=== PATIENT | male | born 1950 | race Caucasian/White ===

== ENCOUNTER 2016-08-12 21:59 | Inpatient (IN) | payer BC, OTHER ==
[~2016-08-12] VITALS: Ht 180.3 cm; Wt 172.1 kg
[~2016-08-12 21:59] MED LIST: ALL300 PO; AMLO10TA4 PO; ASPI81TA28 PO; ATOR-24 PO; BMX1 PO; COLC0.6T54 PO; DICL-201 PO; FLUT0.0529 NAE; FOSI40TA2 PO; GLC/500 PO; GLIP-171 PO; NATE120T PO; POTA-327 PO; SALI0.6510 NAE; SITA100T3 PO; TRAM-10 PO
[2016-08-12 22:59] LABS: BASO % 0.4 %; BASO ABS # 0.04 K/uL (0-0.2); COMPLETE YES; EOS % 2.6 %; IG% 0.3 %; LYMPH ABS # 4.42 K/uL (1.2-3.4); MEAN CELL VOLUME 88.7 fL (80-100); MEAN CORPUSCULAR HEMOGLOBIN 31.1 pg (25-34); MEAN CORPUSCULAR HGB CONC 35.1 g/dl (32-36); MEAN PLATELET VOLUME 10.6 fL (7.4-10.4); MONO % 6.3 %; NEUT % 51.4 %; PLATELET COUNT 274 K/uL (130-400); RED BLOOD COUNT 4.85 M/uL (4.7-6.1); WHITE BLOOD COUNT 11.34 K/uL (4.8-10.8)
[2016-08-12 23:08] LABS: PROTHROMBIN TIME (PATIENT) 10.6 SECONDS (9.0-12.0)
[2016-08-12 23:29] LABS: ALKALINE PHOSPHATASE 98 U/L (45-117); ALT/SGPT 47 U/L (12-78); BLOOD UREA NITROGEN 29 mg/dl (7-18); BUN/CREATININE RATIO 24.3 (10-20); CALCIUM 8.5 mg/dl (8.5-10.1); CARBON DIOXIDE 22 mmol/L (21-32); CHLORIDE 101 mmol/L (98-107); GLUCOSE 336 mg/dl (70-99); SODIUM 135 mmol/L (136-145)
[2016-08-12 23:31] LABS: AST/SGOT 50 U/L (15-37)
[2016-08-12 23:38] LABS: BETA-HYDROXYBUTYRATE 1.24 mg/dL (0.2-2.81)
[2016-08-13 01:08] LABS: MAGNESIUM 1.8 mg/dl (1.8-2.4)
[2016-08-13] MEDS ORDERED: ASPIRIN 81 MG CHEW PO STA (01:25)
[2016-08-13] MEDS ORDERED: SODIUM CHLORIDE 0.9% 500ML 500 ML IV ONE (01:45)
--- NOTE | 2016-08-13 02:17 | EMERGENCY ROOM VISIT NOTE ---
History Report prepared by Ean: Katarina Lino Under the Supervision of: Dr. Ivan Lucia M.D. First contact with patient: 22:34 Chief Complaint: SHORTNESS OF BREATH Stated Complaint: TROUBLE BREATING WHEN WALKING Nursing Triage Summary: patient states he has been short of breath with movement since this past and has difficulty catching his breath. History of Present Illness The patient is a 66 year old male who presents to the Emergency Room with complaints of worsening shortness of breath beginning 10 days prior to arrival. The patient states that he has been gradually worsening these past few days. He also notes the shortness of breath worsens with walking. The patient does have a cough with sputum. 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 He notes when he drives these long distances he experiences swelling to the lower extremities. The patient notes he has an inhaler at home that he has been using these past few days. He denies fever, chest pain, or pain with breathing. The patient is a diabetic. 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 Review of Systems See HPI for pertinent positives & negatives. A total of 10 systems reviewed and were otherwise negative. Past Medical & Surgical Medical Problems: (1) Diabetes (2) New onset a-fib Old medical records were reviewed. Nurse's notes were reviewed and I agree with. No previous history of A. fib. No history of cardiac disease or diabetes Family History Diabetes mellitus FH: heart disease FHx: cancer Hypertension Social History Smoking Status: Never Smoker Smokeless Tobacco Use: No Alcohol Use: none Marital Status: Housing Status: lives with family Occupation Status: employed Current/Historical Medications Scheduled Allopurinol (Zyloprim *), 300 MG PO DAILY Amlodipine Besylate (Norvasc), 10 MG PO DAILY Aspirin (Aspirin Ec), 81 MG PO DAILY Atorvastatin (Lipitor), 40 MG PO HS Bumetanide (Bumex *), 2 MG PO UD Colchicine (Colchicine), 0.6 MG PO DAILY Diclofenac (Voltaren), 75 MG PO DAILY WITH FOOD Fosinopril Sodium (Monopril), 80 MG PO DAILY Glipizide Xl (Glucotrol Xl), 10 MG PO QAM Metformin Hcl (Glucophage), 1,000 MG PO QAM Nateglinide (Starlix ), 120 MG PO BID Potassium Ext Rel (Klor-Con), 10 MEQ PO DAILY Sitagliptin Phosphate (Januvia), 100 MG PO DAILY Scheduled PRN Fluticasone Propionate (Nasal) (Flonase), 2 SPRAYS JANINA DAILY PRN for Nasal Congestion Saline ([place] Nasal [place]), 2 SPRAYS JANINA PRN PRN for Nasal Congestion Tramadol (Ultram), 50-100 MG PO Q6 PRN for Pain Allergies Coded Allergies: Sulfa Drugs (Verified Adverse Reaction, Mild, SICK - N/V, 08/12/16) Physical Exam Vital Signs Date Time Temp Pulse Resp B/P Pulse Ox O2 Delivery O2 Flow Rate FiO2 08/13/16 01:42 90 18 110/75 97 Room Air 08/12/16 23:48 108 18 114/71 95 Room Air 08/12/16 22:42 112 08/12/16 22:35 97 Room Air 08/12/16 22:15 99 Room Air 08/12/16 22:01 36.5 118 24 150/94 97 Room Air Physical Exam General: Non-ill appearing obese middle age male. Well developed well nourished in no acute distress, breathing comfortably on room air. Normal speech HEENT: Normal cephalic atraumatic. Pupils are equal round and reactive to light. Sclerae anicteric. Extraocular movements are intact. Oropharynx is pink with moist mucous membranes. No swelling of the mouth lips or tongue. Neck: Supple with a midline trachea. No meningeal signs or stiffness, no JVD or bruits. No Stridor. Chest: Crackles in the bases. Normal respiratory effort. Heart: irregularly irregular with minimal tachycardic at times. Abdomen: Soft nontender, nondistended without rebound guarding or rigidity. Extremities: No cyanosis clubbing. 1+ lower extremity edema. No calf tenderness or assymetry Spine/Back. Non tender to palpation. No CVA tenderness Skin: Good turgor without rashes. Neurologic exam: Cranial nerves two through 12 are intact. Motor and sensation are intact and symmetrical throughout. Medical Decision & Procedures ER Provider Diagnostic Interpretation: X-ray results as stated below per interpretation by me and the radiologist: Chest: Cardiomegaly with suspected congestive change. Laboratory Results 08/12/16 22:25 Red Blood Count 4.85, Mean Corpuscular Volume 88.7, Mean Corpuscular Hemoglobin 31.1, Mean Corpuscular Hemoglobin Concent 35.1, Mean Platelet Volume 10.6, Neutrophils (%) (Auto) 51.4, Lymphocytes (%) (Auto) 39.0, Monocytes (%) (Auto) 6.3, Eosinophils (%) (Auto) 2.6, Basophils (%) (Auto) 0.4, Neutrophils # (Auto) 5.84, Lymphocytes # (Auto) 4.42, Monocytes # (Auto) 0.71, Eosinophils # (Auto) 0.30, Basophils # (Auto) 0.04 08/12/16 22:25 Test 08/12/16 22:25 08/13/16 01:33 White Blood Count 11.34 K/uL (4.8-10.8) Red Blood Count 4.85 M/uL (4.7-6.1) Hemoglobin 15.1 g/dL (14.0-18.0) Hematocrit 43.0 % (42-52) Mean Corpuscular Volume 88.7 fL (80-100) Mean Corpuscular Hemoglobin 31.1 pg (25-34) Mean Corpuscular Hemoglobin Concent 35.1 g/dl (32-36) Platelet Count 274 K/uL (130-400) Mean Platelet Volume 10.6 fL (7.4-10.4) Neutrophils (%) (Auto) 51.4 % Lymphocytes (%) (Auto) 39.0 % Monocytes (%) (Auto) 6.3 % Eosinophils (%) (Auto) 2.6 % Basophils (%) (Auto) 0.4 % Neutrophils # (Auto) 5.84 K/uL (1.4-6.5) Lymphocytes # (Auto) 4.42 K/uL (1.2-3.4) Monocytes # (Auto) 0.71 K/uL (0.11-0.59) Eosinophils # (Auto) 0.30 K/uL (0-0.5) Basophils # (Auto) 0.04 K/uL (0-0.2) RDW Standard Deviation 42.8 fL (36.4-46.3) RDW Coefficient of Variation 13.2 % (11.5-14.5) Immature Granulocyte % (Auto) 0.3 % Immature Granulocyte # (Auto) 0.03 K/uL (0.00-0.02) Prothrombin Time 10.6 SECONDS (9.0-12.0) Prothromb Time International Ratio 1.0 (0.9-1.1) Activated Partial Thromboplast Time 26.7 SECONDS (21.0-31.0) Partial Thromboplastin Ratio 1.0 D-Dimer 590 ug/L FEU (0-500) Anion Gap 13.0 mmol/L (3-11) Est Creatinine Clear Calc Drug Dose 95.8 ml/min Estimated GFR () 71.6 Estimated GFR (Non- 61.8 BUN/Creatinine Ratio 24.3 (10-20) Calcium Level 8.5 mg/dl (8.5-10.1) Magnesium Level 1.8 mg/dl (1.8-2.4) Total Bilirubin 0.6 mg/dl (0.2-1) Direct Bilirubin 0.1 mg/dl (0-0.2) Aspartate Amino Transf (AST/SGOT) 50 U/L (15-37) Alanine Aminotransferase (ALT/SGPT) 47 U/L (12-78) Alkaline Phosphatase 98 U/L (45-117) Total Creatine Kinase 110 U/L (39-308) Creatine Kinase MB < 0.5 ng/ml (0.5-3.6) Creatine Kinase MB Ratio (0-3.0) Troponin I < 0.015 ng/ml (0-0.045) Pro-B-Type Natriuretic Peptide 510 pg/ml (0-900) Total Protein 7.6 gm/dl (6.4-8.2) Albumin 3.5 gm/dl (3.4-5.0) Lipase 185 U/L (73-393) Beta-Hydroxybutyric Acid 1.24 mg/dL (0.2-2.81) Thyroid Stimulating Hormone (TSH) 3.980 uIu/ml (0.300-4.500) Lactic Acid Level 2.0 mmol/L (0.4-2.0) Laboratory studies as stated above per my review. Medications Administered Medications (Trade) Dose Ordered Sig/Dennise Route Start Time Stop Time Status Last Admin Dose Admin Aspirin (Aspirin Chew) 324 mg NOW STAT PO 08/13/16 01:25 08/13/16 01:27 DC 08/13/16 01:25 324 MG ECG Indication: SOB/dyspnea Rate (beats per minute): 110 Rhythm: atrial fibrillation Findings: other (left anterior viscular block, poor R wave progression ) Comparison ECG Date: Atrial fibrilation has replaced normal sinus since September 16, 2010 ED Course 2238: Past medical records reviewed. The patient was evaluated in room B5, and a complete history and physical examination were performed. 0038: CT will come assess if patient will fit in CT machine. 0124: I spoke with Dr. Levon Santoro. He will evaluate the patient for further treatment. 0132: Upon reevaluation, the patient is hemodynamically stable. I discussed the results and treatment plan with the patient. He verbalized agreement of the treatment plan. The patient will be evaluated for further management by Dr. Levon Santoro. Medical Decision Differentials include, but are not limited to; CHF, arrhythmia, acute coronary syndrome, PE, infection, electrolyte or metabolic abnormalities. This patient comes in as described above. He was placed on a monitor tech in room B5. He is here for treatment and evaluation of dyspnea on exertion. he also apparently has new onset A. fib on the monitor. He does have peripheral edema. IV access established. He in no respiratory distress at rest. He is non-hypoxemic chest x-ray does show cardiomegaly and I suspect some mild congestive changes. He has a large body habitus and his chest x-ray difficult to say for sure. His BNP is not significantly elevated. His cardiac enzymes are not elevated. His d-dimer was minimally elevated just over 500. I think is unlikely PE. I did attempt order a CT however the patient cannot fit in our scanner physically I had our ict help desk technician came and checked him. He was given aspirin here he does have new onset A. fib on the EKG with a rate of about 100 up and down. I do think he needs to be admitted for that. He may need further evaluation. His TSH is within normal limits and is unlikely thyroid. I do suspect his underlying CHF component as well I have consulted Dr. Foster in the ER and will admit him for these measures. Consults Time Called: 0122 Consulting Physician: Dr. Levon Santoro Returned Call: [address] Levon Santoro. He will evaluate the patient for further treatment. Impression Primary Impression: New onset atrial fibrillation Additional Impression: CHF (congestive heart failure) Scribe Attestation The scribe's documentation has been prepared under my direction and personally reviewed by me in its entirety. I confirm that the note above accurately reflects all work, treatment, procedures, and medical decision making performed by me. Departure Information Dispostion Being Evaluated By Hospitalist Referrals Chantel Culver M.D. (MEDICAL) (PCP) Problem Qualifiers
[2016-08-13] MEDS ORDERED: GLUCAGON FOR INJ 1 MG VIAL SQ PRN ×2 (02:30)
[2016-08-13] MEDS ORDERED: LORAZEPAM 2 MG/ML 1 ML VIAL IV PRN (02:30)
[2016-08-13] MEDS ORDERED: GLUCOSE 40% GEL 15 GM TUBE PO PRN ×2 (02:30)
[2016-08-13] MEDS ORDERED: GLUCOSE 10 TABS/TUBE PO PRN ×2 (02:30)
[2016-08-13] MEDS ORDERED: NITROGLYCERIN 0.4 MG SL PER TAB CHARGE SL PRN (02:30)
[2016-08-13] MEDS ORDERED: MoRPHine SULFATE 4 MG/ML 1 ML CARP\\VIAL IV PRN (02:30)
[2016-08-13] MEDS ORDERED: SODIUM CHLORIDE 0.9% 1000ML 1,000 ML IV ONE (02:30)
[2016-08-13] MEDS ORDERED: DEXTROSE 50% 50 ML SYR IV PRN ×2 (02:30)
[2016-08-13] MEDS ORDERED: ACETAMINOPHEN 325 MG TAB PO PRN (02:30)
[2016-08-13] MEDS ORDERED: ONDANSETRON INJ 2 MG/ML 2 ML VIAL IV PRN (02:30)
[2016-08-13] MEDS ORDERED: FLUTICASONE PROPIONATE NA SPR 16 GM BTL NAE PRN (02:30)
[2016-08-13] MEDS ORDERED: TRAMADOL HCL 50 MG TAB PO PRN (02:30)
[2016-08-13] MEDS ORDERED: INSULIN GLARGINE SOLOSTAR 100 UNITS/ML 3 ML PEN SC ONE (03:00)
[2016-08-13] MEDS ORDERED: LORAZEPAM INJ 0.5 MG in SYRINGE 0.75 ML IV PRN (03:00)
[2016-08-13] MEDS ORDERED: METOPROLOL TARTRATE 25 MG TAB PO ONE (03:00)
[2016-08-13] MEDS ORDERED: INSULIN ASPART 100 UNITS/ML 3 ML PEN SC ONE (03:00)
[2016-08-13 03:07] VITALS: BP 154/98; PULSE 88; TEMP 36.6; O2SAT 95; BMI 53.7
[2016-08-13] MEDS: HEPARIN 25,000 UNIT/500ML D5W 500 ML IV PRN ×5 (03:49→19:49)
[2016-08-13 04:00] VITALS: BP 154/98; PULSE 88; TEMP 36.6; O2SAT 95
[2016-08-13] MEDS ORDERED: MAGNESIUM SULFATE 1GM / D5W 1 GM in PREMIXED IN D5W 100 ML IV ONE (04:00)
[2016-08-13 05:30] LABS: BASO % 0.6 %; BASO ABS # 0.06 K/uL (0-0.2); COMPLETE YES; EOS % 3.5 %; HEMATOCRIT 41.6 % (42-52); IG% 0.4 %; LYMPH % 38.5 %; LYMPH ABS # 4.04 K/uL (1.2-3.4); MEAN CELL VOLUME 90.4 fL (80-100); MEAN CORPUSCULAR HEMOGLOBIN 31.3 pg (25-34); MEAN CORPUSCULAR HGB CONC 34.6 g/dl (32-36); MEAN PLATELET VOLUME 10.4 fL (7.4-10.4); MONO % 7.3 %; NEUT % 49.7 %; PLATELET COUNT 229 K/uL (130-400)
[2016-08-13 05:55] LABS: BLOOD UREA NITROGEN 26 mg/dl (7-18); BUN/CREATININE RATIO 28.2 (10-20); CALCIUM 8.3 mg/dl (8.5-10.1); CARBON DIOXIDE 25 mmol/L (21-32); CHLORIDE 103 mmol/L (98-107); CREATININE 0.94 mg/dl (0.60-1.40); GLUCOSE 186 mg/dl (70-99); POTASSIUM 3.8 mmol/L (3.5-5.1); SODIUM 137 mmol/L (136-145)
--- NOTE | 2016-08-13 05:57 | DIAGNOSTIC IMAGING REPORT ---
CHEST ONE VIEW PORTABLE CLINICAL HISTORY: CHEST PAIN dyspnea COMPARISON STUDY: No previous studies for comparison. FINDINGS: Mild cardiomegaly. Prominent pulmonary vasculature. Diaphragms are smooth. IMPRESSION: Mild congestive heart failure Electronically signed by: Dario Vaz M.D. 08/13/2016 5:55 AM Dictated Date/Time: 08/13/2016 5:55 AM
--- NOTE | 2016-08-13 07:08 | DIAGNOSTIC IMAGING REPORT ---
BILATERAL LOWER EXTREMITY VENOUS DOPPLER HISTORY: Pain. Edema. leg discomfort COMPARISON STUDY: None. FINDINGS: There is normal compressibility, flow, and augmentation within the bilateral lower extremity deep venous systems. IMPRESSION: No DVT within the right or left lower extremity. Electronically signed by: Dario Vaz M.D. 08/13/2016 7:06 AM Dictated Date/Time: 08/13/2016 7:06 AM
--- NOTE | 2016-08-13 07:31 | HISTORY & PHYSICAL EXAMINATION ---
DATE OF ADMISSION: 08/13/2016 PRIMARY CARE PHYSICIAN: Dr. Salcedo. HX obtained from px and records. CHIEF COMPLAINT: Shortness of breath. HISTORY OF PRESENT ILLNESS: Medical history significant for hypertension, DM2 type 2 on oral meds, ROGER, CPAP intolerance; chronic venous insufficiency on diuretic tx, gout. Tonight, patient noted shortness of breath, could not catch his breath. No chest pain. L Leg discomfort. No palpitations. Chronic cough symptoms, productive of clear sputum. 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 Just got home from a [place] trip. He was 13 hrs on the bus. At the Emergency Room, patient noted to be in rapid AFib. MEDICAL HISTORY: As above. OPERATIONS: Hernia repair. HOME MEDICATIONS: Include Norvasc, aspirin, Xalatan, Lipitor, Bumex, colchicine, Voltaren, Flonase, Monopril, Glucotrol, metformin, Starlix, Januvia, Ultram, Klor-Con, sulfa. FAMILY HISTORY: atrial fibrillation, diabetes. PERSONAL AND SOCIAL HISTORY: Nonsmoker. No chronic intake of alcoholic beverages. 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 REVIEW OF SYSTEMS: As per HPI, all other ROS negative. PHYSICAL EXAMINATION: VITAL SIGNS: Blood pressure was noted to be 150/94, pulse rate 110, RR 22, temperature 36.5, sats 95 on room air. GENERAL: Noted to be morbidly obese. No respiratory distress. Slightly anxious. SKIN: Normal color. HEENT: [place] palpebral conjunctivae. Dry mucosa. NECK: Short neck. LUNGS: Decreased effort. HEART: Irregular. ABDOMEN: Some distention, nontender. EXTREMITIES: Minimal LE edema, no tenderness. NEUROLOGIC: No gross focality. LABS: Hemoglobin 15, hematocrit 42, white cell count was 11.3, platelets 274. Sodium 135, potassium 4, chloride 101, CO2 of 22, BUN 29, creatinine 1.2, anion gap is 13, glucose 330. BNP was normal. D-dimer was abnormal. Hemoglobin A1c from last year was noted to be 8.1. Chest x-ray, poor effort. EKG; AFib, rate 110, LAD, LAFB, poor R-wave progression. ASSESSMENT: 1. New-onset atrial fibrillation possibly precipitated by mild clinical dehydration (hyponatremia, anion gap) rule out pulmonary embolism as a precipitant with shortness of breath symptoms; 2. hypertension, blood pressure on the lower side 3. DM2, on oral meds, suboptimal control as of recent outpx HgA1c 4. ROGER, CPAP noncompliance. PLAN: PCU initiate beta munir for rate control IV heparin for thromboembolic prevention for now PE workup : VQ scan (CT scan cannot accommodate px girth), LE Dopplers. TTE, Cardiology consult RE new onset AFib. IVF, hold home diuretic for now decrease home ACEI dose, hold home CCB given relatively low BP for now basal Lantus, ISS BG goal 140-180 carb count indicated for suboptimal BG control Patient due for hemoglobin A1c check. May benefit from diabetic education pending HgA1c results. DVT prophylaxis. Heparin. Full code. MTDD
[2016-08-13 08:00] VITALS: BP 131/73; PULSE 100; TEMP 37; O2SAT 97
[2016-08-13] MEDS: COLCHICINE 0.6 MG TAB PO SCH (08:02)
[2016-08-13] MEDS: INSULIN ASPART 100 UNITS/ML 3 ML PEN SC SCH ×4 (08:06→21:25)
[2016-08-13] MEDS: LISINOPRIL 5 MG TAB PO SCH (08:08)
[2016-08-13] MEDS ORDERED: LISINOPRIL 2.5 MG TAB PO SCH (09:00)
[2016-08-13] MEDS ORDERED: PERFLUTREN LIPID MICROSPHERE (DEFINITY) IV ONE (09:57)
[2016-08-13 10:40] LABS: PARTIAL THROMBOPLASTIN RATIO 1.4
[2016-08-13] MEDS ORDERED: HEPARIN IV BOLUS 9,000 UNIT in SYRINGE 0 ML IV ONE (11:15)
[2016-08-13 11:49] VITALS: BP 115/76; PULSE 90; TEMP 36.7; O2SAT 96
--- NOTE | 2016-08-13 12:52 | DIAGNOSTIC IMAGING REPORT ---
NUCLEAR MEDICINE VENTILATION/PERFUSION SCAN CLINICAL HISTORY: Dyspnea COMPARISON: None TECHNIQUE: For the ventilation portion of this exam, 32.6 mCi of DTPA was inhaled at 1239. Immediately following inhalation, imaging of the chest was carried out in the anterior, posterior, left lateral, right lateral, LPO, RPO, GREEK and VEGA projections. For the perfusion portion of exam, 6.6 mCi of technetium 99m MAA was injected IV at 1245. Immediately following injection, imaging of the chest was carried out in the same projections. FINDINGS: Slightly inhomogeneous activity characteristics throughout both hemithoraces. No evidence for significant ventilation/perfusion mismatch. IMPRESSION: Low probability of pulmonary embolus Electronically signed by: Dario Vaz M.D. 08/13/2016 12:51 PM Dictated Date/Time: 08/13/2016 12:47 PM
--- NOTE | 2016-08-13 14:18 | CARDIOLOGY CONSULTATION ---
DATE OF CONSULTATION: 08/13/2016 REFERRING PHYSICIAN: Maude carbone. REASON FOR CONSULTATION: Shortness of breath and atrial fibrillation. HISTORY OF PRESENT ILLNESS: This is a 66-year-old morbidly obese male patient with a history of diabetes for approximately 10 years. He also has a history of sleep apnea which was diagnosed 15 years ago and he has never used CPAP due to intolerance. He has been treated for chronic venous stasis, gout and had an episode of shingles. The patient has never had a history of heart disease. He states that starting approximately 10 days ago he noticed some increased shortness of breath. No heart palpitations or tachycardia. No chest pain. His shortness of breath has been persistent. 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 He came to the Emergency Department was found to be in new onset of atrial fibrillation. After admission, his cardiac markers have been negative. His TSH level was within normal limits. He has also had a workup for pulmonary emboli and DVTs which have been negative. ALLERGIES: SULFA MEDICATIONS. PAST MEDICAL HISTORY: As per the history of chief complaint. In addition, he has been treated for hypertension. SOCIAL HISTORY: He is a nonsmoker. He lives with his . 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 FAMILY MEDICAL HISTORY: Significant for diabetes. REVIEW OF SYSTEMS: A 10-point review of systems is negative except for the history of chief complaint. PHYSICAL EXAMINATION: GENERAL: He is alert and oriented. VITAL SIGNS: Blood pressure 115/76, pulse is irregular at 90. He is afebrile. HEENT: He is normocephalic. Pupils are equal and reactive to light. Extraocular muscles are intact bilaterally. NECK: The neck veins are flat. Carotids have good upstrokes bilaterally without bruits. Thyroid is nonpalpable. RESPIRATORY: Breath sounds are equal bilaterally and clear to auscultation. CARDIOVASCULAR: Heart has an irregular rhythm. No cardiac rubs or murmurs. GASTROINTESTINAL: Abdomen is soft, nontender without organomegaly. EXTREMITIES: Free of edema, digit clubbing, or cyanosis. NEUROLOGIC: Grossly intact. SKIN: Warm to touch. LYMPH NODES: Negative to palpation. LABORATORY DATA: As per the history of chief complaint. IMPRESSION: 1. New onset of atrial fibrillation. 2. History of sleep apnea and intolerance to CPAP. 3. Morbid obesity. 4. Diabetes mellitus. 5. Hypertension. RECOMMENDATIONS: I would continue the patient's anticoagulation and beta-munir for now. An echocardiogram is pending and I will review that when it is completed. I will make him n.p.o. after midnight as we may be able to do a DEEPA guided cardioversion prior to discharge.
[2016-08-13 15:27] VITALS: BP 116/84; PULSE 62; TEMP 36.6; O2SAT 95
--- NOTE | 2016-08-13 15:29 | Progress Note ---
Internal Med Progress Note Date of Service: Aug 13, 2016. Provider Documentation: SUBJECTIVE: Patient is seen and examined at bedside. Currently feels well. Denies any chest pain, palpitations, dizziness. SOB is improving. OBJECTIVE: Vital Signs-as noted below Physical Exam: General Appearance: +Obese, no apparent distress Head: normocephalic, Atraumatic Eyes: normal inspection, EOMI, PERRLA Neck: supple, no JVD, Trachea midline Respiratory/Chest: Normal breath sounds, CTA, No accessory muscle use Cardiovascular:Irregularly Irregular, No murmur Abdomen/GI:Soft, Non tender, Bowel sounds present Extremities/Musculoskelatal:normal inspection, Trace edema Neurologic/Psych:AAOX3, grossly no focal neurological deficits Skin: normal color, warm Lab data as noted below. 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 Vital Signs: Date Time Temp Pulse Resp B/P Pulse Ox O2 Delivery O2 Flow Rate FiO2 08/13/16 15:27 36.6 62 18 116/84 95 Room Air 08/13/16 14:08 Room Air 08/13/16 12:00 Room Air 08/13/16 11:49 36.7 90 20 115/76 96 08/13/16 08:00 37.0 100 16 131/73 97 Room Air 08/13/16 08:00 97 Room Air 08/13/16 04:00 36.6 88 18 154/98 95 Room Air 08/13/16 04:00 95 Room Air 08/13/16 03:07 36.6 88 18 154/98 95 Room Air 08/13/16 01:42 90 18 110/75 97 Room Air 08/12/16 23:48 108 18 114/71 95 Room Air 08/12/16 22:42 112 08/12/16 22:35 97 Room Air 08/12/16 22:15 99 Room Air 08/12/16 22:01 36.5 118 24 150/94 97 Room Air Lab Results: Results Past 24 Hours Test 08/12/16 22:25 08/13/16 01:33 08/13/16 03:39 08/13/16 05:11 Range/Units White Blood Count 11.34 10.50 4.8-10.8 K/uL Red Blood Count 4.85 4.60 4.7-6.1 M/uL Hemoglobin 15.1 14.4 14.0-18.0 g/dL Hematocrit 43.0 41.6 42-52 % Mean Corpuscular Volume 88.7 90.4 80-100 fL Mean Corpuscular Hemoglobin 31.1 31.3 25-34 pg Mean Corpuscular Hemoglobin Concent 35.1 34.6 32-36 g/dl Platelet Count 274 229 130-400 K/uL Mean Platelet Volume 10.6 10.4 7.4-10.4 fL Neutrophils (%) (Auto) 51.4 49.7 % Lymphocytes (%) (Auto) 39.0 38.5 % Monocytes (%) (Auto) 6.3 7.3 % Eosinophils (%) (Auto) 2.6 3.5 % Basophils (%) (Auto) 0.4 0.6 % Neutrophils # (Auto) 5.84 5.22 1.4-6.5 K/uL Lymphocytes # (Auto) 4.42 4.04 1.2-3.4 K/uL Monocytes # (Auto) 0.71 0.77 0.11-0.59 K/uL Eosinophils # (Auto) 0.30 0.37 0-0.5 K/uL Basophils # (Auto) 0.04 0.06 0-0.2 K/uL RDW Standard Deviation 42.8 43.9 36.4-46.3 fL RDW Coefficient of Variation 13.2 13.4 11.5-14.5 % Immature Granulocyte % (Auto) 0.3 0.4 % Immature Granulocyte # (Auto) 0.03 0.04 0.00-0.02 K/uL Prothrombin Time 10.6 9.0-12.0 SECONDS Prothromb Time International Ratio 1.0 0.9-1.1 Activated Partial Thromboplast Time 26.7 21.0-31.0 SECONDS Partial Thromboplastin Ratio 1.0 D-Dimer 590 0-500 ug/L FEU Sodium Level 135 137 136-145 mmol/L Potassium Level 4.0 3.8 3.5-5.1 mmol/L Chloride Level 101 103 98-107 mmol/L Carbon Dioxide Level 22 25 21-32 mmol/L Anion Gap 13.0 9.0 3-11 mmol/L Blood Urea Nitrogen 29 26 7-18 mg/dl Creatinine 1.20 0.94 0.60-1.40 mg/dl Est Creatinine Clear Calc Drug Dose 95.8 122.3 ml/min Estimated GFR () 71.6 96.2 Estimated GFR (Non- 61.8 83.0 BUN/Creatinine Ratio 24.3 28.2 10-20 Random Glucose 336 186 70-99 mg/dl Calcium Level 8.5 8.3 8.5-10.1 mg/dl Magnesium Level 1.8 1.8-2.4 mg/dl Total Bilirubin 0.6 0.2-1 mg/dl Direct Bilirubin 0.1 0-0.2 mg/dl Aspartate Amino Transf (AST/SGOT) 50 15-37 U/L Alanine Aminotransferase (ALT/SGPT) 47 12-78 U/L Alkaline Phosphatase 98 45-117 U/L Total Creatine Kinase 110 39-308 U/L Creatine Kinase MB < 0.5 0.5-3.6 ng/ml Creatine Kinase MB Ratio 0-3.0 Troponin I < 0.015 < 0.015 0-0.045 ng/ml Pro-B-Type Natriuretic Peptide 510 0-900 pg/ml Total Protein 7.6 6.4-8.2 gm/dl Albumin 3.5 3.4-5.0 gm/dl Lipase 185 73-393 U/L Beta-Hydroxybutyric Acid 1.24 0.2-2.81 mg/dL Thyroid Stimulating Hormone (TSH) 3.980 0.300-4.500 uIu/ml Lactic Acid Level 2.0 0.4-2.0 mmol/L Bedside Glucose 174 70-99 mg/dl Hepatitis C Antibody Screen NEG NEG Test 08/13/16 07:49 08/13/16 10:10 08/13/16 11:29 Range/Units Bedside Glucose 181 230 70-99 mg/dl Activated Partial Thromboplast Time 35.7 21.0-31.0 SECONDS Partial Thromboplastin Ratio 1.4 Microbiology Results 08/13/16 Blood Culture, Received Pending 08/13/16 Blood Culture, Received Pending
--- NOTE | 2016-08-13 15:50 | ECHOCARDIOGRAM REPORT ---
*NOTICE TO RECEIVING CONSTITUTION PARTY AGENCY This information is strictly Confidential and protected under [place] law. [place] law prohibits you from making any further disclosure of this information unless further disclosure is expressly permitted by the written consent of the person to whom it pertains or is authorized by law. A general authorization for the release of medical or other information is not sufficient for this purpose. Hospital accepts no responsibility if the information is made available to any other person, INCLUDING THE PATIENT. Interpretation Summary * Name: PAULO WASHINGTON Study Date: 08/13/2016 09:32 AM BP: 154/98 mmHg * Patient Location: [facility]\S\N280\S\1 HR: 88 * : 1950 (M/d/yyy) Gender: Male Height: 71 in * Age: 66 yrs Ethnicity: [place] Weight: 384 lb * Ordering Physician: Omero Dos Santos * Performed By: Gina Goldstein * * Reason For Study: A-FIB * BSA: 2.8 m2 * The study was technically difficult. * The study was technically limited. * Grossly normal valvular structure and function. * -- Conclusions -- * The study was technically difficult. * The study was technically limited. * The left ventricle is grossly normal size. * The left ventricular ejection fraction is grossly normal. Procedure Details * A complete two-dimensional transthoracic echocardiogram was performed (2D, M-mode, Doppler and color flow Doppler). * There were technical limitations due to patient'sbody habitus * A contrast injection of Definity was performed to improve assessment of LV function. * Contrast was injected into an intravenous site in the left arm. * One vial of Definity ultrasound contrast was diluted in normal saline to a total volume of 10 ml. A total of '2' ml of solution was administered during imaging. * Lot # [id number] of Definity utilized for procedure. * Expiration date 06/14. * The attending nurse who injected the contrast agent was KENN ALBRIGHT RN. Left Ventricle * The left ventricle is grossly normal size. * The left ventricular ejection fraction is grossly normal. Right Ventricle * The right ventricle is not well visualized. Atria * The left atrial size is normal. * Right atrium not well visualized. Mitral Valve * The mitral valve is grossly normal. * Significant mitral regurgitation is absent. Tricuspid Valve * The tricuspid valve is not well visualized. Aortic Valve * The aortic valve is not well visualized. * No hemodynamically significant valvular aortic stenosis. * There is no significant aortic regurgitation. Pulmonic Valve * The pulmonic valve is not well visualized. Pericardium/Pleural * There is no pericardial effusion. MMode 2D Measurements and Calculations IVSd 1.9 cm IVSs 2.3 cm LVIDd 5.0 cm LVIDs 2.9 cm LVPWd 1.4 cm LVPWs 2.5 cm IVS/LVPW 1.4 FS 41.8 % EDV(Teich) 120.3 ml ESV(Teich) 33.1 ml EF(Teich) 72.5 % EDV(cubed) 127.8 ml ESV(cubed) 25.2 ml EF(cubed) 80.3 % % IVS thick 16.5 % % LVPW thick 81.5 % LV mass(C)d 376.9 grams LV mass(C)dI 135.5 grams/m\S\2 LV mass(C)s 355.1 grams LV mass(C)sI 127.6 grams/m\S\2 SV(Teich) 87.2 ml SI(Teich) 31.3 ml/m\S\2 SV(cubed) 102.6 ml SI(cubed) 36.9 ml/m\S\2 ACS 1.2 cm LA dimension 4.7 cm asc Aorta Diam 2.9 cm LVOT diam 2.2 cm LVOT area 3.7 cm\S\2 LVAd ap4 43.1 cm\S\2 LVLd ap4 9.1 cm EDV(MOD-sp4) 162.5 ml EDV(sp4-el) 173.4 ml LVAs ap4 18.8 cm\S\2 LVLs ap4 7.2 cm ESV(MOD-sp4) 40.9 ml ESV(sp4-el) 41.8 ml EF(MOD-sp4) 74.8 % EF(sp4-el) 75.9 % LVAd ap2 43.8 cm\S\2 LVLd ap2 8.5 cm EDV(MOD-sp2) 182.8 ml EDV(sp2-el) 190.9 ml LVAs ap2 20.2 cm\S\2 LVLs ap2 6.9 cm ESV(MOD-sp2) 47.4 ml ESV(sp2-el) 50.0 ml EF(MOD-sp2) 74.1 % EF(sp2-el) 73.8 % LVLd %diff -6.61 % EDV(MOD-bp) 179.9 ml LVLs %diff -3.31 % ESV(MOD-bp) 44.1 ml EF(MOD-bp) 75.5 % SV(MOD-sp4) 121.6 ml SI(MOD-sp4) 43.7 ml/m\S\2 SV(MOD-sp2) 135.4 ml SI(MOD-sp2) 48.7 ml/m\S\2 SV(MOD-bp) 135.9 ml SI(MOD-bp) 48.8 ml/m\S\2 SV(sp4-el) 131.6 ml SI(sp4-el) 47.3 ml/m\S\2 SV(sp2-el) 140.9 ml SI(sp2-el) 50.6 ml/m\S\2 Doppler Measurements and Calculations MV E max bibiana 119.2 cm/sec MV dec time 0.24 sec Ao V2 max 223.1 cm/sec Ao max PG 20.1 mmHg Ao max PG (full) 17.4 mmHg Ao V2 mean 137.2 cm/sec Ao mean PG 9.2 mmHg Ao V2 VTI 42.6 cm JES(V,A) 1.4 cm\S\2 JES(V,D) 1.4 cm\S\2 LV V1 max PG 2.8 mmHg LV V1 max 83.1 cm/sec PA V2 max 73.3 cm/sec PA max PG 2.2 mmHg
[2016-08-13 18:29] LABS: PARTIAL THROMBOPLASTIN RATIO 4.6
[2016-08-13 19:27] VITALS: BP 133/65; PULSE 82; TEMP 36.8; O2SAT 94
[2016-08-13] MEDS: METOPROLOL TARTRATE 25 MG TAB PO SCH (21:21)
[2016-08-13] MEDS: ATORVASTATIN 40 MG TAB PO SCH (21:21)
[2016-08-13] MEDS: INSULIN GLARGINE SOLOSTAR 100 UNITS/ML 3 ML PEN SC SCH (21:25)
[2016-08-14 00:06] VITALS: BP 135/81; PULSE 95; TEMP 36.6; O2SAT 96
[2016-08-14 02:29] LABS: PARTIAL THROMBOPLASTIN RATIO 2.8
[2016-08-14] MEDS: HEPARIN 25,000 UNIT/500ML D5W 500 ML IV PRN ×3 (03:09→16:31)
[2016-08-14 03:57] VITALS: BP 116/64; PULSE 93; TEMP 36.7; O2SAT 96
[2016-08-14 07:13] LABS: ESTIMATED AVERAGE GLUCOSE 206 mg/dl; HA1C FLAG Normal (Normal)
[2016-08-14] MEDS: COLCHICINE 0.6 MG TAB PO SCH (07:56)
[2016-08-14] MEDS: LISINOPRIL 5 MG TAB PO SCH (07:57)
[2016-08-14] MEDS: METOPROLOL TARTRATE 25 MG TAB PO SCH ×2 (07:57→19:43)
[2016-08-14] MEDS: INSULIN GLARGINE SOLOSTAR 100 UNITS/ML 3 ML PEN SC SCH ×2 (07:59→21:07)
[2016-08-14] MEDS: INSULIN ASPART 100 UNITS/ML 3 ML PEN SC SCH ×4 (08:01→21:07)
[2016-08-14 08:22] VITALS: BP 141/91; PULSE 85; TEMP 36.8; O2SAT 94
[2016-08-14 09:13] LABS: HEMATOCRIT 43.2 % (42-52); MEAN CELL VOLUME 90.2 fL (80-100); MEAN CORPUSCULAR HEMOGLOBIN 31.3 pg (25-34); MEAN CORPUSCULAR HGB CONC 34.7 g/dl (32-36); MEAN PLATELET VOLUME 11.1 fL (7.4-10.4); PLATELET COUNT 248 K/uL (130-400); RED BLOOD COUNT 4.79 M/uL (4.7-6.1); WHITE BLOOD COUNT 9.37 K/uL (4.8-10.8)
[2016-08-14 09:33] LABS: PARTIAL THROMBOPLASTIN RATIO 2.5
[2016-08-14 09:43] LABS: BUN/CREATININE RATIO 18.7 (10-20); CALCIUM 8.7 mg/dl (8.5-10.1); CREATININE 0.79 mg/dl (0.60-1.40); MAGNESIUM 1.9 mg/dl (1.8-2.4); POTASSIUM 3.8 mmol/L (3.5-5.1)
--- NOTE | 2016-08-14 10:27 | Cardiology Follow-Up ---
Subjective General Date of Service: Aug 14, 2016. Chief Complaint: Shortness of breath Pt evaluation today including: conversation w/ patient, conversation w/ family , physical exam, chart review, lab review, review of studies, review of inpatient medication list History of Present Illness Patient seen and examined. and friend (Deniz Mariscal) at bedside Dyspnea earlier this morning, resolved. No chest pain. No palpitations. No cough. No increased peripheral edema. Telemetry: Atrial fibrillation currently 100-120 bpm. Heart rate has ranged from 89 bpm to 160 bpm. No significant bradyarrhythmias or pauses. August 13, 2016 TTE Interpretation Summary: The study was technically difficult. The study was technically limited. The left ventricle is grossly normal size. The left ventricular ejection fraction is grossly normal. Allergies Coded Allergies: Sulfa Drugs (Verified Adverse Reaction, Mild, SICK - N/V, 08/12/16) Social History Smoking Status: Never Smoker Hx Tobacco Use In Past Year?: No Hx Alcohol Use - Type And Amou: No Hx Substance Use - Type And Am: No Problem List Medical Problems: (1) CHF (congestive heart failure) Status: Acute (2) New onset atrial fibrillation Status: Acute Physical Exam Vital Signs Last Vital Signs Documentation Date Time Temp Pulse Resp B/P Pulse Ox O2 Delivery O2 Flow Rate FiO2 08/14/16 08:22 36.8 85 18 141/91 94 Room Air Physical Exam Constitutional: General Apperance: obese Level of Distress: NAD Psychiatric: Mental Status: active & alert Orientation: to time, to place, to person Memory: recent memory normal, remote memory normal Head: normocephalic Eyes: Pupils: PERRLA Neck: pertinent finding (3-5 cm mass right posterior lateral neck) Lungs: Auscultation: no wheezing, no rales/crackles, no rhonchi, deminished air movement, decreased breath sounds Cardiovascular: Heart Auscultation: no murmurs, no rubs, no gallops, tachycardia, irregular rate rhythm, pertinent finding (Distant heart sounds) Peripheral Pulses: Bruits: none appreciated Radial Pulse: normal on the left, normal on the right Dorsalis Pedis Pulse: absent on the left, absent on the right Abdomen: Bowel Sounds: normal Inspection & Palpation: soft Extremities: no cyanosis, no clubbing, edema (Mild chronic indurated edema) Neurologic: Cranial Nerves: grossly intact Assessment and Plan Assessment and Plan Admission with new onset symptomatic (shortness of breath) atrial fibrillation with a rapid ventricular response of unknown duration (likely ~10 days) in a 66 year old male with untreated sleep apnea, morbid obesity, hypertension, and type II diabetes mellitus. CHADS2 Score is 2/6. CHADS-VASc Score 3 points. RECOMMENDATIONS: Continue IV heparin, transitioning to a novel anticoagulate approved by his insurance provider. Increase metoprolol tartrate to 25 mg twice a day for additional heart rate control NPO except for medications, attempted DEEPA guided cardioversion with anesthesia assistance (? today or in AM of 08/15) Note: Risks and benefits of anticoagulates, metoprolol, and cardioversion discussed with patient and . CARDIOLOGY ATTENDING ADDENDUM: The patient was seen and personally examined. Agree with Dario Guardado PA-C's findings and plans as documented above. Will plan CV for tomorrow. Pt. remains in persistent AFib. explained risk, benefit and intent of DEEPA/cardioversion discussed and he is willing to proceed. Laboratory Results Last 24 Hours Test 08/13/16 11:29 08/13/16 16:40 08/13/16 17:58 08/13/16 20:06 Bedside Glucose 230 mg/dl 235 mg/dl 188 mg/dl Activated Partial Thromboplast Time 119.5 SECONDS Partial Thromboplastin Ratio 4.6 Test 08/14/16 01:46 08/14/16 07:50 08/14/16 08:40 Activated Partial Thromboplast Time 71.6 SECONDS 65.4 SECONDS Partial Thromboplastin Ratio 2.8 2.5 Bedside Glucose 181 mg/dl White Blood Count 9.37 K/uL Red Blood Count 4.79 M/uL Hemoglobin 15.0 g/dL Hematocrit 43.2 % Mean Corpuscular Volume 90.2 fL Mean Corpuscular Hemoglobin 31.3 pg Mean Corpuscular Hemoglobin Concent 34.7 g/dl RDW Standard Deviation 44.0 fL RDW Coefficient of Variation 13.4 % Platelet Count 248 K/uL Mean Platelet Volume 11.1 fL Sodium Level 138 mmol/L Potassium Level 3.8 mmol/L Chloride Level 106 mmol/L Carbon Dioxide Level 22 mmol/L Anion Gap 10.0 mmol/L Blood Urea Nitrogen 15 mg/dl Creatinine 0.79 mg/dl Est Creatinine Clear Calc Drug Dose 145.0 ml/min Estimated GFR () 106.9 Estimated GFR (Non- 92.3 BUN/Creatinine Ratio 18.7 Random Glucose 193 mg/dl Calcium Level 8.7 mg/dl Magnesium Level 1.9 mg/dl
[2016-08-14 12:13] VITALS: BP 120/81; PULSE 84; TEMP 36.6; O2SAT 98
--- NOTE | 2016-08-14 12:22 | Progress Note ---
Internal Med Progress Note Date of Service: Aug 14, 2016. Provider Documentation: SUBJECTIVE: Patient is seen and examined at bedside. States having dyspnea earlier this morning. Currently denies any chest pain, palpitations, dizziness, SOB. No events overnight. Continues to be in afib. OBJECTIVE: Vital Signs-as noted below Physical Exam: General Appearance: +Obese, no apparent distress Head: normocephalic, Atraumatic Eyes: normal inspection, EOMI, PERRLA Neck: supple, no JVD, Trachea midline Respiratory/Chest: Normal breath sounds, CTA, No accessory muscle use Cardiovascular:Irregularly Irregular, No murmur Abdomen/GI:Soft, Non tender, Bowel sounds present Extremities/Musculoskelatal:normal inspection, Trace edema Neurologic/Psych:AAOX3, grossly no focal neurological deficits Skin: normal color, warm Lab data as noted below. 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 PROCEDURES: ECHO: * The study was technically difficult. * The study was technically limited. * The left ventricle is grossly normal size. * The left ventricular ejection fraction is grossly normal. Vital Signs: Date Time Temp Pulse Resp B/P Pulse Ox O2 Delivery O2 Flow Rate FiO2 08/14/16 12:13 36.6 84 18 120/81 98 Room Air 08/14/16 08:22 36.8 85 18 141/91 94 Room Air 08/14/16 08:00 Room Air 08/14/16 04:00 Room Air 08/14/16 03:57 36.7 93 16 116/64 96 Room Air 08/14/16 00:06 36.6 95 20 135/81 96 Room Air 08/14/16 00:00 Room Air 08/13/16 20:00 Room Air 08/13/16 19:27 36.8 82 18 133/65 94 Room Air 08/13/16 16:00 Room Air 08/13/16 15:27 36.6 62 18 116/84 95 Room Air 08/13/16 14:08 Room Air Lab Results: Results Past 24 Hours Test 08/13/16 16:40 08/13/16 17:58 08/13/16 20:06 08/14/16 01:46 Range/Units Bedside Glucose 235 188 70-99 mg/dl Activated Partial Thromboplast Time 119.5 71.6 21.0-31.0 SECONDS Partial Thromboplastin Ratio 4.6 2.8 Test 08/14/16 07:50 08/14/16 08:40 08/14/16 11:42 Range/Units Bedside Glucose 181 175 70-99 mg/dl White Blood Count 9.37 4.8-10.8 K/uL Red Blood Count 4.79 4.7-6.1 M/uL Hemoglobin 15.0 14.0-18.0 g/dL Hematocrit 43.2 42-52 % Mean Corpuscular Volume 90.2 80-100 fL Mean Corpuscular Hemoglobin 31.3 25-34 pg Mean Corpuscular Hemoglobin Concent 34.7 32-36 g/dl RDW Standard Deviation 44.0 36.4-46.3 fL RDW Coefficient of Variation 13.4 11.5-14.5 % Platelet Count 248 130-400 K/uL Mean Platelet Volume 11.1 7.4-10.4 fL Activated Partial Thromboplast Time 65.4 21.0-31.0 SECONDS Partial Thromboplastin Ratio 2.5 Sodium Level 138 136-145 mmol/L Potassium Level 3.8 3.5-5.1 mmol/L Chloride Level 106 98-107 mmol/L Carbon Dioxide Level 22 21-32 mmol/L Anion Gap 10.0 3-11 mmol/L Blood Urea Nitrogen 15 7-18 mg/dl Creatinine 0.79 0.60-1.40 mg/dl Est Creatinine Clear Calc Drug Dose 145.0 ml/min Estimated GFR () 106.9 Estimated GFR (Non- 92.3 BUN/Creatinine Ratio 18.7 10-20 Random Glucose 193 70-99 mg/dl Calcium Level 8.7 8.5-10.1 mg/dl Magnesium Level 1.9 1.8-2.4 mg/dl
--- NOTE | 2016-08-14 15:10 | Anesthesiology Progress Note ---
Anesthesia Progress Note Date of Service Aug 14, 2016. Progress Notes is a 66 year old male who is slated for DEEPA and cardioversion on . Allergies to sulfa. PSH significant for R inguinal hernia repair without anesthesia complications. PMH significant for SOB (can walk 2 block but does breathe heavily), ROGER but cannot tolerate CPAP, New onset A fib with RVR, NIDDM (although started on insulin as inpatient), MORBID obesity. No tobacco usage with rare alcohol usage. Worked up for PE this admission but was negative. TTE was technically difficult study but LV function and EF grossly normal. PTT notable for 65.4 as patient on heparin ggt. Airway exam did show MP 2 but patient with a very thick neck and large tongue. HR tachy and irregular. Patient instructed to be NPO after midnight. Consented for MAC. All questions answered.
[2016-08-14 15:46] VITALS: BP 147/76; PULSE 89; TEMP 36.5; O2SAT 96
[2016-08-14] MEDS: ATORVASTATIN 40 MG TAB PO SCH (19:43)
[2016-08-14 19:59] VITALS: BP 132/87; PULSE 81; TEMP 36.5; O2SAT 100
[2016-08-15] VITALS (13 sets, daily range): BP systolic 104–152; BP diastolic 59–96; PULSE 62–110; TEMP 36.4–36.9; O2SAT 95–99; Ht 180.3 cm; Wt 172.1 kg
[2016-08-15 05:03] LABS: PARTIAL THROMBOPLASTIN RATIO 2.4
[2016-08-15 05:08] LABS: BUN/CREATININE RATIO 15.9 (10-20); CALCIUM 8.6 mg/dl (8.5-10.1); CREATININE 0.94 mg/dl (0.60-1.40); MAGNESIUM 2.1 mg/dl (1.8-2.4); POTASSIUM 4.6 mmol/L (3.5-5.1)
[2016-08-15] MEDS: HEPARIN 25,000 UNIT/500ML D5W 500 ML IV PRN (05:19)
[2016-08-15] MEDS ORDERED: MIDAZOLAM HCL 1 MG/ML 2ML VIAL ONE (07:13)
[2016-08-15] MEDS ORDERED: KETAMINE HCL INJ 50 MG/ML 10 ML VIAL ONE (07:14)
[2016-08-15] MEDS ORDERED: LIDOCAINE HCL 2% 2 ML VIAL (20MG/ML) ONE (08:08)
[2016-08-15] MEDS ORDERED: PROPOFOL IV EMULSION 10 MG/ML 20 ML VIAL IV ONE (08:08)
--- NOTE | 2016-08-15 08:12 | Anesthesiology Progress Note ---
Anesthesia Post Op Note Date & Time Aug 15, 2016 at 08:12 Vital Signs Pain Intensity: 0 Vital Signs Past 12 Hours Date Time Temp Pulse Resp B/P Pulse Ox O2 Delivery O2 Flow Rate FiO2 08/15/16 08:05 71 20 121/71 96 Nasal Cannula 08/15/16 08:00 102 20 116/76 96 Nasal Cannula 08/15/16 07:55 110 20 131/95 96 Nasal Cannula 08/15/16 07:50 95 20 141/91 99 Nasal Cannula 08/15/16 07:45 81 20 152/96 99 Nasal Cannula 08/15/16 07:06 36.7 85 20 129/85 96 Room Air 08/15/16 04:00 Room Air 08/15/16 03:43 36.9 95 20 105/70 97 Room Air 08/15/16 00:20 36.9 102 20 104/59 95 Room Air 08/15/16 00:01 Room Air Notes Mental Status: alert / awake / arousable, participated in evaluation Pt Amnestic to Procedure: Yes Nausea / Vomiting: adequately controlled Pain: adequately controlled Airway Patency, RR, SpO2: stable & adequate BP & HR: stable & adequate Hydration State: stable & adequate Anesthetic Complications: no major complications apparent
[2016-08-15] MEDS: INSULIN ASPART 100 UNITS/ML 3 ML PEN SC SCH ×2 (08:54→12:08)
--- NOTE | 2016-08-15 08:57 | CARDIOVERSION ---
DATE OF OPERATION: 08/15/2016 PROCEDURE: Cardioversion. HISTORY OF PRESENT ILLNESS: The patient presented with new onset atrial fibrillation and RVR. He underwent a transesophageal echocardiogram prior to his procedure which showed no contraindication to performing the cardioversion. PROCEDURE SUMMARY: The patient received sedation by anesthesia. After the patient was fully anesthetized he received 300 joules of biphasic energy converting him to normal sinus rhythm. The patient then was returned to his room in stable condition. I attest to the content of the Intraoperative Record and any orders documented therein. Any exceptio ns are noted below.
[2016-08-15] MEDS: INSULIN GLARGINE SOLOSTAR 100 UNITS/ML 3 ML PEN SC SCH (08:58)
[2016-08-15] MEDS: METOPROLOL TARTRATE 25 MG TAB PO SCH (10:05)
[2016-08-15] MEDS: LISINOPRIL 5 MG TAB PO SCH (10:06)
[2016-08-15] MEDS: COLCHICINE 0.6 MG TAB PO SCH ×2 (10:06→10:11)
--- NOTE | 2016-08-15 10:54 | Cardiology Follow-Up ---
Subjective General Date of Service: Aug 15, 2016. Chief Complaint: Shortness of breath History of Present Illness Patient seen and examined status post successful direct current cardioversion by Dr. Jang using 300 J of biphasic energy, converting to sinus rhythm without clinical sequela. Telemetry currently with sinus rhythm in the upper 60's. August 13, 2016 TTE Interpretation Summary: The study was technically difficult. The study was technically limited. The left ventricle is grossly normal size. The left ventricular ejection fraction is grossly normal. Allergies Coded Allergies: Sulfa Drugs (Verified Adverse Reaction, Mild, SICK - N/V, 08/12/16) Social History Smoking Status: Never Smoker Hx Tobacco Use In Past Year?: No Hx Alcohol Use - Type And Amou: No Hx Substance Use - Type And Am: No Problem List Medical Problems: (1) CHF (congestive heart failure) Status: Acute (2) New onset atrial fibrillation Status: Acute Physical Exam Vital Signs Last Vital Signs Documentation Date Time Temp Pulse Resp B/P Pulse Ox O2 Delivery O2 Flow Rate FiO2 08/15/16 09:21 Room Air 08/15/16 09:15 36.5 65 20 132/78 96 Physical Exam Constitutional: General Apperance: obese Level of Distress: NAD Psychiatric: Mental Status: active & alert Orientation: to time, to place, to person Memory: recent memory normal, remote memory normal Head: normocephalic Eyes: Pupils: PERRLA Neck: pertinent finding (3-5 cm mass right posterior lateral neck) Lungs: Auscultation: no wheezing, no rales/crackles, no rhonchi, deminished air movement, decreased breath sounds Cardiovascular: Heart Auscultation: RRR, normal S1, normal S2, no murmurs, no rubs, no gallops, pertinent finding (Distant heart sounds) Peripheral Pulses: Bruits: none appreciated Radial Pulse: normal on the left, normal on the right Dorsalis Pedis Pulse: absent on the left, absent on the right Abdomen: Bowel Sounds: normal Inspection & Palpation: soft Extremities: no cyanosis, no clubbing, edema (Mild chronic indurated edema) Neurologic: Cranial Nerves: grossly intact Assessment and Plan Assessment and Plan Admission with new onset symptomatic (shortness of breath) atrial fibrillation with a rapid ventricular response Duration unknown, likely ~10 days History of untreated sleep apnea, morbid obesity, hypertension, and type II diabetes mellitus. CHADS2 Score is 2/6. CHADS-VASc Score 3 points. Status post successful 08/15/2016 DEEPA guided direct current cardioversion by Dr. Jang using 300 J of biphasic energy, converting to sinus rhythm without clinical sequela. RECOMMENDATIONS: Transition IV heparin to a novel anticoagulate approved by his insurance provider. Prescription written for Pradaxa 150 mg twice a day. If covered, discontinue heparin when the first dose of Pradaxa (dabigatran) is given. Continue metoprolol as prescribed Outpatient cardiology follow-up in 7-10 days. Office aware, will contact patient. Outpatient stress testing (two day Lexiscan if unable to ambulate) as well as Sleep Medicine Referral to be addressed at follow-up. CARDIOLOGY ATTENDING ADDENDUM: The patient was seen and personally examined. Agree with Dario Guardado PA-C's findings and plans as documented above. Agree patient can be discharged with outpt follow-up. Laboratory Results Last 24 Hours Test 08/14/16 11:42 08/14/16 16:26 08/15/16 04:35 08/15/16 07:19 Bedside Glucose 175 mg/dl 177 mg/dl 164 mg/dl Activated Partial Thromboplast Time 62.0 SECONDS Partial Thromboplastin Ratio 2.4 Sodium Level 141 mmol/L Potassium Level 4.6 mmol/L Chloride Level 106 mmol/L Carbon Dioxide Level 29 mmol/L Anion Gap 6.0 mmol/L Blood Urea Nitrogen 15 mg/dl Creatinine 0.94 mg/dl Est Creatinine Clear Calc Drug Dose 121.8 ml/min Estimated GFR () 96.2 Estimated GFR (Non- 83.0 BUN/Creatinine Ratio 15.9 Random Glucose 158 mg/dl Calcium Level 8.6 mg/dl Magnesium Level 2.1 mg/dl
--- NOTE | 2016-08-15 11:20 | Progress Note ---
Internal Med Progress Note Date of Service: Aug 15, 2016. Provider Documentation: SUBJECTIVE: The patient was seen and examined S/P DEEPA and Cardioversion In NSR now and denies any symptoms OBJECTIVE: Vital Signs-as noted below Exam: General-no distress at rest Eyes-normal ENT-normal Neck-Supple Lungs-clear to ausucltate bilaterally Heart-Regular,no murmur appreciated Abdomen-Benign,no masses,bowel sound present Extremities-1+ edema bilaterally Neuro-AAox3 Lab data as noted below. 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 Vital Signs: Date Time Temp Pulse Resp B/P Pulse Ox O2 Delivery O2 Flow Rate FiO2 08/15/16 10:49 36.5 62 18 143/84 98 Room Air 08/15/16 09:21 Room Air 08/15/16 09:15 36.5 65 20 132/78 96 Room Air 08/15/16 09:00 36.4 62 18 138/81 97 Room Air 08/15/16 08:30 73 18 121/70 94 Room Air 08/15/16 08:20 71 18 104/70 94 Room Air 08/15/16 08:10 74 18 99/66 94 Room Air 08/15/16 08:05 71 20 121/71 96 Nasal Cannula 08/15/16 08:00 102 20 116/76 96 Nasal Cannula 08/15/16 07:55 110 20 131/95 96 Nasal Cannula 08/15/16 07:50 95 20 141/91 99 Nasal Cannula 08/15/16 07:45 81 20 152/96 99 Nasal Cannula 08/15/16 07:06 36.7 85 20 129/85 96 Room Air 08/15/16 04:00 Room Air 08/15/16 03:43 36.9 95 20 105/70 97 Room Air 08/15/16 00:20 36.9 102 20 104/59 95 Room Air 08/15/16 00:01 Room Air 08/14/16 20:00 Room Air 08/14/16 19:59 36.5 81 16 132/87 100 08/14/16 16:00 Room Air 08/14/16 15:46 36.5 89 16 147/76 96 08/14/16 12:13 36.6 84 18 120/81 98 Room Air 08/14/16 12:00 Room Air Lab Results: Results Past 24 Hours Test 08/14/16 11:42 08/14/16 16:26 08/15/16 04:35 08/15/16 07:19 Range/Units Bedside Glucose 175 177 164 70-99 mg/dl Activated Partial Thromboplast Time 62.0 21.0-31.0 SECONDS Partial Thromboplastin Ratio 2.4 Sodium Level 141 136-145 mmol/L Potassium Level 4.6 3.5-5.1 mmol/L Chloride Level 106 98-107 mmol/L Carbon Dioxide Level 29 21-32 mmol/L Anion Gap 6.0 3-11 mmol/L Blood Urea Nitrogen 15 7-18 mg/dl Creatinine 0.94 0.60-1.40 mg/dl Est Creatinine Clear Calc Drug Dose 121.8 ml/min Estimated GFR () 96.2 Estimated GFR (Non- 83.0 BUN/Creatinine Ratio 15.9 10-20 Random Glucose 158 70-99 mg/dl Calcium Level 8.6 8.5-10.1 mg/dl Magnesium Level 2.1 1.8-2.4 mg/dl
[2016-08-15] MEDS ORDERED: DABIGATRAN ELEXILATE 75 MG CAP PO SCH ×3 (12:00→21:00)
[2016-08-15] MEDS ORDERED: DABIGATRAN ELEXILATE 75 MG CAP PO ONE (12:15)
--- NOTE | 2016-08-15 13:11 | TEE ---
*NOTICE TO RECEIVING LIBERTARIAN AGENCY This information is strictly Confidential and protected under [place] law. [place] law prohibits you from making any further disclosure of this information unless further disclosure is expressly permitted by the written consent of the person to whom it pertains or is authorized by law. A general authorization for the release of medical or other information is not sufficient for this purpose. Hospital accepts no responsibility if the information is made available to any other person, INCLUDING THE PATIENT. Interpretation Summary * Name: PAULO WASHINGTON Study Date: 08/15/2016 07:31 AM BP: 152/96 mmHg * Patient Location: [facility]\S\N280\S\1 HR: 107 * : 1950 (M/d/yyyy) Gender: Male Height: 71 in * Age: 66 yrs Ethnicity: CA Weight: 382 lb * Ordering Physician: Omero Dos Santos * Referring Physician: Self, Referred * Performed By: Marisol Clemons RCS * * Reason For Study: A-FIB * BSA: 2.8 m2 * -- Conclusions -- * No findings that would contraindicate cardioversion. Procedure Details * DEEPA Probe #1 utilized for procedure. * The study was performed in Cardiac Catheterization Lab. * Time out was conducted by the physician, nurse, and orthophoto tech/draftsman with positive identification of patient and procedure. * TIME OUT: 0745 PROBE IN: 0755 PROBE OUT: 0800 * Informed consent for Transesophageal Echocardiogram was obtained prior to the procedure. * An intravenous line was placed. A topical anesthetic agent was used for oropharangeal anesthesia. A bite block was inserted. * Sedation performed by the anesthesia department. * The patient's vital signs, including blood pressure, heart rate, pulse oximetry and cardiac rhythm were monitored throughout the procedure . * A multifrequency, multiplane transesopheageal echocardiographic endoscope was inserted and manipulated in the standard fashion to achieve multiplane views. * The transesophageal probe was passed without difficulty. * The usual views were obtained; basal, mid-esophageal, transgastric and aortic views. * A 2D transesophageal echocardiogram with spectral and color flow Doppler was performed. * A 2D transesophageal echocardiogram with Doppler and color flow Doppler was performed. Left Ventricle * The left ventricle is normal in size. * There is normal left ventricular wall thickness. * Left ventricular systolic function is normal. * Ejection Fraction = 60-65%. * The left ventricular wall motion is normal. Right Ventricle * The right ventricle is normal in size and function. Atria * The left atrial size is normal. * No thrombus is detected in the left atrial appendage. * Right atrial size is normal. * The interatrial septum is intact with no evidence for an atrial septal defect. Mitral Valve * The mitral valve anatomy is normal. * There is trace mitral regurgitation. Tricuspid Valve * The tricuspid valve is normal. * There is no tricuspid stenosis. * There is trace tricuspid regurgitation. Aortic Valve * The aortic valve is trileaflet. * No hemodynamically significant valvular aortic stenosis. * No aortic regurgitation is present. Pulmonic Valve * The pulmonic valve is not well seen, but is grossly normal. Great Vessels * The aortic root is normal size. Pericardium * There is no pericardial effusion.
[2016-08-15] MEDS ORDERED: LSN5 PO (13:59)
[2016-08-15] MEDS ORDERED: NTRSLP4 SL (13:59)
[2016-08-15] MEDS ORDERED: LPR25 PO (13:59)
[2016-08-15] MEDS ORDERED: PRD75 PO (13:59)
--- NOTE | 2016-08-15 14:01 | Discharge Instructions ---
Discharge Instructions Date of Service Aug 15, 2016. Admission Reason for Admission: New Onset A Fib Discharge Discharge Diagnosis / Problem: New onset AF,S/P DEEPA and cardioversion Discharge Goals Goal(s): Prevent Disease Progression Activity Recommendations Activity Limitations: resume your previous activity . Instructions / Follow-Up Instructions / Follow-Up Dr Culver on 08/21/16 at 12:50PM.Cardiology will call with appointment Current Hospital Diet Patient's current hospital diet: Diabetes Type 2 Diet, AHA Diet (Heart Healthy) Discharge Diet Recommended Diet: AHA Diet (Heart Healthy), Diabetes Type 2 Diet Pending Studies Studies pending at discharge: no Laboratory Results Hemoglobin A1c Test 08/12/16 22:25 Range/Units Estimated Average Glucose 206 mg/dl Hemoglobin A1c 8.8 H 4.5-5.6 % Medical Emergencies . Who to Call and When: Medical Emergencies: If at any time you feel your situation is an emergency, please call 911 immediately. . Non-Emergent Contact Non-Emergency issues call your: Primary Care Provider . Past History Medical & Surgical History: (1) CHF (congestive heart failure) (2) New onset atrial fibrillation (3) Diabetes . "Provider Documentation" section prepared by Araceli Rodriguez. VTE Core Measure Inpt VTE Proph given/why not?: Unfractionated heparin SQ (Pradaxa)
--- NOTE | 2016-08-15 16:14 | Discharge Summary ---
Discharge Summary Date of Service Aug 15, 2016. Discharge Summary Admission Date: Aug 13, 2016 at 02:28 Discharge Date: Aug 15, 2016 Discharge Disposition: Home Principal Diagnosis: New onset AF s/p Cardioversion Secondary Diagnoses/Problems: Please see H&P Procedures: DEEPA and Cardioversion Consultations: Cardiology Medication Reconciliation New Medications: Dabigatran Elexilate (Pradaxa) 75 Mg Cap 150 MG PO BID for 30 Days, #120 CAP Lisinopril (Lisinopril) 5 Mg Tab 5 MG PO QAM for 30 Days, #30 TAB Metoprolol Tartrate (Lopressor) 25 Mg Tab 25 MG PO BID for 30 Days, #60 TAB Nitroglycerin (Nitrostat) 0.4 Mg/1 Tab Subl 0.4 MG SL UD PRN for Chest Pain for 30 Days, #25 Continued Medications: Allopurinol (Zyloprim *) 300 Mg Tab 300 MG PO DAILY, 0 Refills Aspirin (Aspirin Ec) 81 Mg Tab 81 MG PO DAILY Atorvastatin (Lipitor) 40 Mg Tab 40 MG PO HS, TAB Bumetanide (Bumex *) 2 Mg Tab 2 MG PO UD, 0 Refills PATIENT CURRENTLY TAKING 1/4 - 1/2 TABLET DAILY NEEDED. Colchicine (Colchicine) 0.6 Mg Tab 0.6 MG PO DAILY, TAB Fluticasone Propionate (Nasal) (Flonase) 50 Mcg/Act Spr 2 SPRAYS JANINA DAILY PRN for Nasal Congestion Fosinopril Sodium (Monopril) 40 Mg Tab 80 MG PO DAILY, 0 Refills Glipizide Xl (Glucotrol Xl) 5 Mg Tab 10 MG PO QAM, TAB Metformin Hcl (Glucophage) 500 Mg Tab 1000 MG PO QAM, TAB Nateglinide (Starlix ) 120 Mg Tab 120 MG PO BID, TAB Saline ([place] Nasal [place]) 0.65 % Spr 2 SPRAYS JANINA PRN PRN for Nasal Congestion Sitagliptin Phosphate (Januvia) 100 Mg Tab 100 MG PO DAILY, TAB Tramadol (Ultram) 50 Mg Tab 50-100 MG PO Q6 PRN for Pain, 0 Refills UP TO 2 PER DAY - PATIENT TAKES 1 DAILY AND MAY TAKE ANOTHER THROUGHOUT THE DAY DEPENDING ON SYMPTOMS. Discontinued Medications: Amlodipine Besylate (Norvasc) 10 Mg Tab 10 MG PO DAILY, TAB Diclofenac (Voltaren) 75 Mg Tabcr 75 MG PO DAILY WITH FOOD, TAB WITH FOOD Potassium Ext Rel (Klor-Con) 10 Meq Tabcr 10 MEQ PO DAILY, 0 Refills Admission Information HPI (per Admitting provider): DATE OF ADMISSION: 08/13/2016 PRIMARY CARE PHYSICIAN: Dr. Salcedo. HX obtained from px and records. CHIEF COMPLAINT: Shortness of breath. HISTORY OF PRESENT ILLNESS: Medical history significant for hypertension, DM2 type 2 on oral meds, ROGER, CPAP intolerance; chronic venous insufficiency on diuretic tx, gout. Tonight, patient noted shortness of breath, could not catch his breath. No chest pain. L Leg discomfort. No palpitations. Chronic cough symptoms, productive of clear sputum. 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 Just got home from a [place] trip. He was 13 hrs on the bus. At the Emergency Room, patient noted to be in rapid AFib. MEDICAL HISTORY: As above. OPERATIONS: Hernia repair. HOME MEDICATIONS: Include Norvasc, aspirin, Xalatan, Lipitor, Bumex, colchicine, Voltaren, Flonase, Monopril, Glucotrol, metformin, Starlix, Januvia, Ultram, Klor-Con, sulfa. FAMILY HISTORY: atrial fibrillation, diabetes. PERSONAL AND SOCIAL HISTORY: Nonsmoker. No chronic intake of alcoholic beverages. 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 REVIEW OF SYSTEMS: As per HPI, all other ROS negative. PHYSICAL EXAMINATION: VITAL SIGNS: Blood pressure was noted to be 150/94, pulse rate 110, RR 22, temperature 36.5, sats 95 on room air. GENERAL: Noted to be morbidly obese. No respiratory distress. Slightly anxious. SKIN: Normal color. HEENT: [place] palpebral conjunctivae. Dry mucosa. NECK: Short neck. LUNGS: Decreased effort. HEART: Irregular. ABDOMEN: Some distention, nontender. EXTREMITIES: Minimal LE edema, no tenderness. NEUROLOGIC: No gross focality. LABS: Hemoglobin 15, hematocrit 42, white cell count was 11.3, platelets 274. Sodium 135, potassium 4, chloride 101, CO2 of 22, BUN 29, creatinine 1.2, anion gap is 13, glucose 330. BNP was normal. D-dimer was abnormal. Hemoglobin A1c from last year was noted to be 8.1. Chest x-ray, poor effort. EKG; AFib, rate 110, LAD, LAFB, poor R-wave progression. ASSESSMENT: 1. New-onset atrial fibrillation possibly precipitated by mild clinical dehydration (hyponatremia, anion gap) rule out pulmonary embolism as a precipitant with shortness of breath symptoms; 2. hypertension, blood pressure on the lower side 3. DM2, on oral meds, suboptimal control as of recent outpx HgA1c 4. ROGER, CPAP noncompliance. PLAN: PCU initiate beta munir for rate control IV heparin for thromboembolic prevention for now PE workup : VQ scan (CT scan cannot accommodate px girth), LE Dopplers. TTE, Cardiology consult RE new onset AFib. IVF, hold home diuretic for now decrease home ACEI dose, hold home CCB given relatively low BP for now basal Lantus, ISS BG goal 140-180 carb count indicated for suboptimal BG control Patient due for hemoglobin A1c check. May benefit from diabetic education pending HgA1c results. DVT prophylaxis. Heparin. Full code. 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 Total time spent on discharge = 40 minutes This includes examination of the patient, discharge planning, medication reconciliation, and communication with other providers. Discharge Instructions Date of Service Aug 15, 2016. Admission Reason for Admission: New Onset A Fib Discharge Discharge Diagnosis / Problem: New onset AF,S/P DEEPA and cardioversion Discharge Goals Goal(s): Prevent Disease Progression Activity Recommendations Activity Limitations: resume your previous activity . Instructions / Follow-Up Instructions / Follow-Up Dr Culver on 08/21/16 at 12:50PM.Cardiology will call with appointment Current Hospital Diet Patient's current hospital diet: Diabetes Type 2 Diet, AHA Diet (Heart Healthy) Discharge Diet Recommended Diet: AHA Diet (Heart Healthy), Diabetes Type 2 Diet Pending Studies Studies pending at discharge: no Laboratory Results Hemoglobin A1c Test 08/12/16 22:25 Range/Units Estimated Average Glucose 206 mg/dl Hemoglobin A1c 8.8 H 4.5-5.6 % Medical Emergencies . Who to Call and When: Medical Emergencies: If at any time you feel your situation is an emergency, please call 911 immediately. . Non-Emergent Contact Non-Emergency issues call your: Primary Care Provider . Past History Medical & Surgical History: (1) CHF (congestive heart failure) (2) New onset atrial fibrillation (3) Diabetes . "Provider Documentation" section prepared by Araceli Rodriguez. VTE Core Measure Inpt VTE Proph given/why not?: Unfractionated heparin SQ (Pradaxa) Additional Copies To Chantel Culver M.D. (MEDICAL)
== END 2016-08-15 16:01 | disposition home or self-care (01) | DRG 309 ==
LOC: ENRESERVTM → ENRESERVDT → C.EDB 22:01 → C.MED 08-13 02:28
PROVIDERS: ADMIT Internal Medicine; ATTEND Internal Medicine
PROC: 5A2204Z Restoration of Cardiac Rhythm, Single (ICD-10-PCS; principal; 2016-08-15 07:34)
DX: I48.91 Unspecified atrial fibrillation (principal); E87.1 Hypo-osmolality and hyponatremia; Z68.43 Body mass index [BMI] 50.0-59.9, adult; R06.02 Shortness of breath; I10 Essential (primary) hypertension; E11.9 Type 2 diabetes mellitus without complications; G47.33 Obstructive sleep apnea (adult) (pediatric); Z91.19 Patient's noncompliance with other medical treatment and regimen; E66.01 Morbid (severe) obesity due to excess calories; M10.9 Gout, unspecified; Z79.82 Long term (current) use of aspirin; Z83.3 Family history of diabetes mellitus; I50.9 Heart failure, unspecified; Z79.899 Other long term (current) drug therapy

== ENCOUNTER → 2016-11-01 | Outpatient (CLI) | payer BC ==
[~2016-11-01] MED LIST changes: -AMLO10TA4 PO; -DICL-201 PO; +LPR25 PO; +LSN5 PO; +NTRSLP4 SL; -POTA-327 PO; +PRD75 PO
--- NOTE | 2016-11-02 06:37 | PAP/PSG TECHNICIAN REPORT ---
[facility] Pulmonary Function Technician Polysomnogram Report Study name: None Report date: 11/02/2016 Study date: 11/01/2016 Referring Physician: Liat CORONADO M.D. Name: SUMACASEPAULO Interpreting Physician: Lia Coronado M.D. Date of : 1950 Pulmonary Function Technician: Tia Ching RPSGT. Sex: Male Age: 66 Study Type: PSG Weight: 381.4 lbs Height: 66 years, Height 6' 0" BMI: 51.72 Medications: ALLOPURINOL 300 MG, ASPIRIN 81 MG, ATROVASTATIN 40 MG, BUMEX 2 MG, COLCHICINE 0.6 MG, PRADAXA 75 MG, FLONASE, MONOPRIL 40 MG, GLIPIZIDE 5 MG, LISINOPRIL 5 MG, METFORMIN 500 MG, METOPROLOL 25 MG, NATEGLINIDE 120 MG, NITROGLYCERIN 0.4 MG, SALINE, JANUVIA 100 MG, TRAMADOL 50 MG Patient History 66 yr-old male here for a baseline/split study. He has had previous sleep testing. He was found to be positive for ROGER but could not tolerate CPAP in 1999. He is back to assess his ROGER and start CPAP again. His [place] scale is 7. The test was started on room air. ETCO2 testing was not utilized during the study. Room 3 Parameters Monitored NPSG: E1-M2, E2-M1, Fp1-M2, Fp2-M1, F3-M2, F4-M2, F4-M1, C3-M2, C4-M2, C4-M1, O1-M2, O2-M2, O2-M1, T3-M2, T4-M1, P3-M2, P4-M1, CHIN1, CHIN2, HR, EKG, Legs, PFLOW, SNOR, FLOW, CFLOW, Tidal Volume, THOR, ABDO, SpO2, PLTH, CPRESS, ETCO2 Wave, ETCO2, pH Sleep Architecture Sleep Stages Time at Lights Off 10:47:53 PM STAGES Time (min.) TST (%) Time at Lights On 5:28:53 AM Wake 197.5 -- Total Recording Time (TRT) 401.00 min. N1 84.0 41 Total Sleep Period (TSP) 372.5 min. N2 111.5 55 Total Sleep Time (TST) 203.5min. N3 0.0 0 Awake Time 197.5 min. REM 8.0 4 Wake after Sleep Onset 176.5 min. Sleep Efficiency (SE) 51 % Sleep Onset Latency (SMITH) 21.0 min. Number of Stage 1 Shifts None Awakenings 18 Stage Changes 73 Number of REM periods 1 REM 8.0 4 REM Latency 114.0 min. NREM 195.5 96 Body Position Analysis Supine Right Left Side Prone Vertical Total Sleep Time (min.) 100.1 45.0 147.0 192.00 0.0 0.0 Total Sleep Time (%) 6% 22% 72% 94 0% N/A% Total Sleep Time REM (min.) 0.0 0.0 8.0 None 0.0 0.0 Total Sleep Time NREM (min.) 11.5 45.0 139.0 None 0.0 0.0 Intermittent Wake (min.) 88.6 12.0 96.9 None 0.0 0.0 Total Sleep Period (%) 21% None None None None None Arousals Myoclonus (PLM) * Events Count Index Events Count Index Spontaneous 11 3 Events Awake (PLMW) 350 106.3 Respiratory 38 12.1 Events Asleep w/ Arousal (PLMA) 23 6.8 PLM 22 7 Events Asleep w/o Arousal (PLMS) 463 136.5 Snoring 2 1 Total Asleep 486 143.3 Total 73 22 Total 836 125 Respiratory Analysis * CA OA MA CH H RERA Total Count 10 7 2 0 123 4 142 Index 2.9 2.1 0.6 0 36.3 1 43.0 Mean Duration 16.0 14.0 23.6 0.00 20.7 20.0 20.1 Longest Duration 22.1 16.3 24.7 0.00 24.7 23.0 56.9 Respiratory Event Summary Total Supine ~Supine Right Left Prone REM NREM Apneas Count 19 9 10 9 1 N/A 0 19 Index 5.6 47 3 12.0 0.4 N/A 0 6 Hypopneas (4% Desat) Count 123 1 122 40 82 N/A 0 123 Index 36.3 5.2 38 53.3 33.5 N/A 0.0 37.7 Apneas & All Hypopneas Count 142 10 132 49 83 N/A 0 142 Index 41.9 52 41 65 34 N/A 0.0 43.6 Respiratory Events (Calendar Control Clerk Blood Bank+All Hyp+RERA) Count 142 10 136 49 87 N/A 0 142 Index 43.0 52 43 65.3 35.5 N/A 0.0 44.8 Respiratory Related Arousal Count 38 10 36 21 15 N/A 0 41 Index 12.1 26 11 28 6 N/A 0 13 Snoring Analysis Supine Right Left Prone REM NREM Total Snore duration 30.6 min Snores count 29 122 989 N/A 14 1,126 1,140 Snore mean duration 1.6 Sec Snores index 151 163 404 N/A 105.0 345.6 336.1 TST with snoring (%) 15.0% Desaturation Event Summary: Minimum %SpO2 Event Count Mean/Min/Max Duration(sec.) Desaturation Index % Time In Bed > 90 193 28.0 / 8.5 / 59.8 33.9 87.1 86 - 90 2 20.8 / 16.3 / 25.3 2.8 11.0 81 - 85 0 N/A 0.0 1.7 76 - 80 0 N/A 0.0 0.3 71 - 75 0 N/A 0.0 0.0 66 - 70 0 N/A 0.0 0.0 61 - 65 0 N/A 0.0 0.0 56 - 60 0 N/A 0.0 0.0 51 - 55 0 N/A 0.0 0.0 < 50 0 N/A 0.0 0.0 Total REM NREM Awake <50% 0.0 min. 0.0 min. 0.0 min. 0.0 min. 51 - 60% 0.0 min. 0.0 min. 0.0 min. 0.0 min. 61 - 70% 0.0 min. 0.0 min. 0.0 min. 0.0 min. 71 - 80% 1.1 min. 0.4 min. 0.0 min. 0.6 min. 81 - 90% 49.8 min. 6.7 min. 40.1 min. 3.0 min. 91 - 100% 342.0 min. 0.9 min. 155.3 min. 185.8 min. Average 93 85 92 94 Minimum SpO2 78 80 85 78 Desaturation Event Index 29.0 0.0 51.3 9.1 # Desat. Events below 89% 38 N/A 37 1 Time(%) with Saturation below 89% 4.5 1.8 2.3 0.4 Time(min.) with Saturation below 89% 17.6 7.1 9.0 1.6 Time (mins) REM (mins) NREM (mins) % of TST SpO2 Below 90% 126 N/A N126 13.4 SpO2 Below 88% 18 0 0 6 Heart Rate Analysis Min (bpm) Max (bpm) Average (bpm) Awake 53 100 66 NREM 52 83 61 REM 68 90 73 Overall 52 90 61 Supplemental O2 Values Minimum O2 level: None Value Start Time End Time Pulmonary Function Technician Comments Mr. Elam slept in the right, left, and supine positions. No cardiac arrhythmias were noted. No bruxism noted. Snoring was noted and scored as a 3 on a scale of 1 through 5. (0=no snoring, 5=snoring loud enough to be heard through a closed door or down the alb[address] way). He did meet specific Split-Night criteria during the diagnostic portion of this study. CPAP treatment was started; however, he started to panic soon after the mask was applied. He could not continue with CPAP, so the study resumed as a baseline test. He awoke to use the restroom two times during the night. Mr. Elam stated that he slept poorly. The final report will be interpreted and signed by a sleep physician. The completed physician report will then be placed in the patient medical record. Therapy (cm H2O) 0 TIB (min.) 401.0 TST (min.) 203.5 Sleep Onset (min.) 21.0 REM Onset From Sleep (min.) 114.0 Sleep Efficiency % 51 Wakefulness (%) 49 Wakefulness (min.) 197.5 NREM 1 (%) 41 NREM 1 (min.) 84.0 NREM 2 (%) 55 NREM 2 (min.) 111.5 NREM 3 (%) 0 NREM 3 (min.) 0.0 REM (%) 4 REM (min.) 8.0 # Arousals 73 Arousal Index 22 # Snore 1,140 Snore Index 336.1 AHI 41.9 AHI Supine 52 AHI Non-Supine 41 NREM AHI 43.6 REM AHI 0.0 RDI 43.0 # Obstructive Apnea 7 # Central Apnea 10 # Mixed Apnea 2 # Hypopneas 123 RERAs 4 Total Respiratory Events 147 Time Below SpO2 89% (min.) 16.0 Mean NREM SpO2 (%) 92 Mean REM SpO2 (%) 85 Mean Sleep SpO2 (%) 92 Min NREM SpO2 (%) 85 Min REM SpO2 (%) 80 Position Supine (min.) 100.1 Position Non-supine (min.) 192.0 LM Index Sleep 143.3 LM Index NREM 145.8 LM Index REM 82.5 Mean Heart Rate (bpm) 61 Min Heart Rate (bpm) 52 Pulmonary Function Technician Comments and User Events: Comment/Event Page Number Time of Day PT CALS 150 10:44:50 PM Look Right 151 10:45:05 PM Look Left 151 10:45:07 PM Look Up 151 10:45:20 PM Look Down 152 10:45:23 PM Eyes Closed 152 10:45:38 PM Bite down on Jaw 153 10:46:01 PM Flex foot 153 10:46:09 PM Hold Breath 153 10:46:19 PM Snore sound 154 10:46:34 PM Effort (Chest) mapped to 7A-6R 492 1:35:26 AM Effort (Chest) mapped to 7A-7R 492 1:35:30 AM Effort (Abdomen) mapped to 6A-6R 493 1:36:17 AM Effort (Chest) mapped to 6A-7R 494 1:36:23 AM Effort (Chest) mapped to 6A-6R 494 1:36:28 AM Effort (Abdomen) mapped to 7A-7R 542 2:00:38 AM HE HAS HAD A RECORDING TIME OF OVER 3 HOURS AND HIS AHI IS 26. DUE TO NOT WORKING WITH [employer], STARTING CPAP 570 2:14:27 AM HE STARTED TO HAVE A PANIC ATTACK AND COULD NOT WEAR THE CPAP MASK. A SPLIT WAS ATTEMPTED BUT HE COULD NOT GO THROUGH WITH IT. HIS BASELINE TEST RESUMED 634 2:46:32 AM Effort (Chest) mapped to 7A-7R 713 3:26:13 AM
--- NOTE | 2016-11-14 08:46 | POLYSOMNOGRAPH REPORT ---
REFERRING PERSON: Dr. Dante Coronado. CRANK HAND: Tia Ching. Mr. Elam is a 66-year-old male sent for a baseline sleep study. He has had previous sleep testing and has been found to be positive for obstructive sleep apnea, but could not tolerate CPAP therapy. He is returning for reevaluation tonight. His [place] sleepiness scale score on the evening of this study is 7. BMI is 51.72. Following the technical and digital specifications of the [place] [employer] (AASM) a standard diagnostic polysomnogram was performed monitoring EEG, EOG, EMG (chin and leg deviations), oxygen saturation, body position, digital video, respiratory effort and airflow. The sleep Stage and event scoring was based on the AASM Manual for the Scoring of Sleep and Associated Events 2007 edition. Apneas are defined as a drop in the peak thermal sensor excursion by >90% of baseline for at least 10 seconds. Hypopneas were scored using the 4% oxygen desaturation rule (4A-Medicare) and a decrease in the nasal pressure excursions by >30% of baseline for at least 10 seconds. Respiratory effort-related arousal (RERA's) is defined as a sequence of breaths lasting at least 10 seconds characterized by increasing respiratory effort or flattening of the nasal pressure waveform leading to an arousal from sleep when the sequence of breaths does not meet criteria for an apnea or hypopnea. Apnea Hypopnea index (AHI) is defined as the number of apneas and hypopneas occurring in an hour of sleep. Respiratory disturbance index (RDI) is defined as the number of apneas, hypopneas, and RERA's occurring in an hour of sleep. Mr. Elam's total sleep period time was 372.5 minutes. Total sleep time was 203.5 minutes. Sleep efficiency was 51%. Latency to sleep onset was 21 minutes. Wake after sleep onset was 176.5 minutes. Total non-REM sleep time was 195.5 minutes. He spent 41% of that time in N1 sleep, 55% in N2 sleep and no time in N3 sleep. REM latency was 114 minutes. Total REM sleep time was 8 minutes or 4% of total sleep time. This is abnormal sleep architecture with a propensity for superficial sleep. There were 73 cortical arousals from sleep. Two of these arousals were due to snoring, 22 due to periodic limb movements and 38 were due to respiratory events, and 11 were spontaneous. There were 486 periodic limb movements noted on this test. Limb movement index was 143.3. Limb movement with arousal index was 6.8. There were 10 central apneas, 7 obstructive apneas and 2 mixed apneas on this test. There were 123 hypopnea and 4 RERA. Apnea-hypopnea index was 41.9 consistent with severe sleep apnea. 1140 snoring events were recorded. Total sleep time with snoring was 15%. Mean saturation was 93% with desaturations to 78%. Saturations were less than 89% for 17.6 minutes of recorded time. There was no cardiac ectopy noted on this study. Heart rates ranged from a low of 52 beats per minute to a high of 90 beats per minute during sleep. CRANK HAND'S NOTE: This patient was noted to have an AHI of 26 by 02:30 a.m. and decision was made to try this patient on CPAP therapy. However, he felt like he was having a panic attack as soon as a mask was applied and it was removed and the test was continued as a baseline study for the remainder of the night. IMPRESSION AND PLAN: A 66-year-old morbidly obese male with evidence of severe sleep apnea and mild nocturnal hypoxemia on this study. He struggled with CPAP therapy on this split night test and the study was run as a baseline. This patient may benefit from PAP nap in order acclimate to CPAP therapy or slow acclimation to therapy at home. 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
== END | disposition home or self-care (01) ==
LOC: C.NEUR 21:00
PROVIDERS: ATTEND Family Medicine
DX: G47.33 Obstructive sleep apnea (adult) (pediatric) (principal); E66.01 Morbid (severe) obesity due to excess calories

== ENCOUNTER 2017-06-08 10:51 | Emergency (ER) | payer BC ==
[~2017-06-08] VITALS: Ht 434.3 cm; Wt 169.0 kg
[2017-06-08] MEDS ORDERED: FENTANYL CITRATE INJ 50 MCG/1 ML 2 ML VIAL IV ONE (10:55)
[2017-06-08 11:08] VITALS: TEMP 36.7; Ht 434.3 cm; Wt 169.0 kg
--- NOTE | 2017-06-08 11:30 | EMERGENCY ROOM VISIT NOTE ---
History Report prepared by Ean: Myke Mar Under the Supervision of: Dr. Selwyn Guzman M.D. First contact with patient: 11:13 Chief Complaint: CARDIAC ASSESSMENT Stated Complaint: HEART PROBLEMS Nursing Triage Summary: pt to the ED with c/o his a fib is back with HWANG History of Present Illness The patient is a 67 year old male who presents to the Emergency Room with complaints of dyspnea on exertion that began two days prior to arrival. The patient states that two days ago he was not able to walk across his house without becoming short of breath. Today he was able to walk to his barn, and his breathing was slight improved. The patient was diagnosed with Atrial Fibrillation 1 year ago and is currently on Pradaxa. He is not experiencing any abdominal pain. 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 A total of 10 systems reviewed and were otherwise negative. Past Medical & Surgical Medical Problems: (1) Diabetes (2) New onset a-fib (3) New onset a-fib Family History Diabetes mellitus FH: heart disease FHx: cancer Hypertension Social History Smoking Status: Never Smoker Alcohol Use: none Marital Status: Housing Status: lives with family Occupation Status: employed Current/Historical Medications Scheduled Albuterol (Ventolin Hfa), 2 PUFFS INH Q4H Allopurinol (Zyloprim), 300 MG PO DAILY Amlodipine (Norvasc), 10 MG PO DAILY Aspirin (Aspirin Ec), 81 MG PO DAILY Atorvastatin (Lipitor), 40 MG PO HS Dabigatran Elexilate (Pradaxa), 150 MG PO BID Exenatide (Bydureon), 2 MG SC WK Fluticasone Propionate (Nasal) (Flonase Allergy Relief), 2 SPRAYS JANINA DAILY Fosinopril Sodium (Monopril), 40 MG PO DAILY Insulin Glargine (Lantus Solostar), 40 UNITS SC QAM Meloxicam (Mobic), 15 MG PO DAILY Metformin Hcl (Glucophage), 500 MG PO QAM Metoprolol Tartrate (Lopressor), 25 MG PO BID Tamsulosin Hcl (Flomax), 0.4 MG PO DAILY Scheduled PRN Nitroglycerin (Nitrostat), 0.4 MG SL UD PRN for Chest Pain Saline ([place] Nasal [place]), 2 SPRAYS JANINA PRN PRN for Nasal Congestion Tramadol (Ultram), 50-100 MG PO Q6 PRN for Pain Allergies Coded Allergies: Sulfa Drugs (Verified Adverse Reaction, Mild, SICK - N/V, 06/08/17) Physical Exam Vital Signs Date Time Temp Pulse Resp B/P (MAP) Pulse Ox O2 Delivery O2 Flow Rate FiO2 06/08/17 15:13 60 16 104/62 94 06/08/17 14:41 58 18 104/65 94 Room Air 06/08/17 14:36 59 18 97/60 97 Nasal Cannula 2.0 06/08/17 14:28 54 14 90/60 96 Nasal Cannula 2.0 06/08/17 14:25 55 12 96 Nasal Cannula 2.0 06/08/17 14:20 59 21 98 Nasal Cannula 2.0 06/08/17 14:18 116/66 06/08/17 14:17 127/68 06/08/17 14:15 58 16 96 Nasal Cannula 2.0 06/08/17 14:12 64 06/08/17 14:10 85 19 06/08/17 14:05 73 3 06/08/17 14:00 86 18 06/08/17 14:00 85 18 112/80 96 Room Air 2.0 06/08/17 13:55 88 18 112/80 96 Room Air 06/08/17 12:50 77 06/08/17 12:32 72 18 92/60 96 Room Air 06/08/17 12:16 96 Room Air 06/08/17 11:08 36.7 82 18 140/109 95 Room Air Physical Exam GENERAL: Patient is a healthy-appearing well-nourished male HEAD: Normocephalic atraumatic EYES: Ocular movements intact pupils equal and react to light OROPHARYNX mucous membranes are moist no exudates present no erythema or edema present NECK: Supple no nuchal rigidity CHEST: Good equal expansion LUNGS: Clear and equal to auscultation CARDIAC: Normal S1 and S2 ABDOMEN: Soft nontender no guarding BACK: No CVA tenderness EXTREMITIES: No pain upon palpation normal muscle strength in all groups no clubbing cyanosis or edema NEURO: Patient is following commands and answering questions appropriately. Alert and oriented x3 Cranial Nerves 2-12 grossly intact Medical Decision & Procedures ER Provider Diagnostic Interpretation: Radiology results as stated below per my review and radiologist interpretation: CHEST ONE VIEW PORTABLE CLINICAL HISTORY: Chest pain. COMPARISON STUDY: Chest radiograph August 12, 2016. FINDINGS: Lung volumes are normal. There is no pneumothorax or pleural effusion. There is no evidence for pulmonary edema. Moderate cardiomegaly is noted. There is no consolidation. IMPRESSION: No acute cardiopulmonary findings. Moderate cardiomegaly. Electronically signed by: Colin Mckeon M.D. 06/08/2017 12:09 PM Dictated Date/Time: 06/08/2017 12:06 PM Laboratory Results 06/08/17 11:40 Red Blood Count 4.78, Mean Corpuscular Volume 90.2, Mean Corpuscular Hemoglobin 31.0, Mean Corpuscular Hemoglobin Concent 34.3, Mean Platelet Volume 10.6, Neutrophils (%) (Auto) 61.2, Lymphocytes (%) (Auto) 28.9, Monocytes (%) (Auto) 6.3, Eosinophils (%) (Auto) 2.7, Basophils (%) (Auto) 0.5, Neutrophils # (Auto) 6.17, Lymphocytes # (Auto) 2.91, Monocytes # (Auto) 0.63, Eosinophils # (Auto) 0.27, Basophils # (Auto) 0.05 06/08/17 11:40 Test 06/08/17 11:40 White Blood Count 10.07 K/uL (4.8-10.8) Red Blood Count 4.78 M/uL (4.7-6.1) Hemoglobin 14.8 g/dL (14.0-18.0) Hematocrit 43.1 % (42-52) Mean Corpuscular Volume 90.2 fL (80-100) Mean Corpuscular Hemoglobin 31.0 pg (25-34) Mean Corpuscular Hemoglobin Concent 34.3 g/dl (32-36) Platelet Count 226 K/uL (130-400) Mean Platelet Volume 10.6 fL (7.4-10.4) Neutrophils (%) (Auto) 61.2 % Lymphocytes (%) (Auto) 28.9 % Monocytes (%) (Auto) 6.3 % Eosinophils (%) (Auto) 2.7 % Basophils (%) (Auto) 0.5 % Neutrophils # (Auto) 6.17 K/uL (1.4-6.5) Lymphocytes # (Auto) 2.91 K/uL (1.2-3.4) Monocytes # (Auto) 0.63 K/uL (0.11-0.59) Eosinophils # (Auto) 0.27 K/uL (0-0.5) Basophils # (Auto) 0.05 K/uL (0-0.2) RDW Standard Deviation 44.1 fL (36.4-46.3) RDW Coefficient of Variation 13.4 % (11.5-14.5) Immature Granulocyte % (Auto) 0.4 % Immature Granulocyte # (Auto) 0.04 K/uL (0.00-0.02) Prothrombin Time 11.5 SECONDS (9.0-12.0) Prothromb Time International Ratio 1.1 (0.9-1.1) Activated Partial Thromboplast Time 33.4 SECONDS (21.0-31.0) Partial Thromboplastin Ratio 1.3 Anion Gap 8.0 mmol/L (3-11) Est Creatinine Clear Calc Drug Dose 173.6 ml/min Estimated GFR () 93.1 Estimated GFR (Non- 80.3 BUN/Creatinine Ratio 20.1 (10-20) Calcium Level 8.5 mg/dl (8.5-10.1) Total Bilirubin 0.6 mg/dl (0.2-1) Direct Bilirubin 0.2 mg/dl (0-0.2) Aspartate Amino Transf (AST/SGOT) 17 U/L (15-37) Alanine Aminotransferase (ALT/SGPT) 24 U/L (12-78) Alkaline Phosphatase 89 U/L (45-117) Total Creatine Kinase 54 U/L (39-308) Creatine Kinase MB < 0.5 ng/ml (0.5-3.6) Creatine Kinase MB Ratio (0-3.0) Troponin I < 0.015 ng/ml (0-0.045) Pro-B-Type Natriuretic Peptide 1364 pg/ml (0-900) Total Protein 6.8 gm/dl (6.4-8.2) Albumin 3.0 gm/dl (3.4-5.0) Lipase 158 U/L (73-393) Labs reviewed by ED physician. Medications Administered Medications (Trade) Dose Ordered Sig/Dennise Route Start Time Stop Time Status Last Admin Dose Admin Midazolam HCl (Versed Inj) 4 mg NOW STAT IV 06/08/17 13:56 06/08/17 13:58 DC 06/08/17 14:25 4 MG Fentanyl Citrate (Fentanyl Inj) 100 mcg NOW STAT IV 06/08/17 13:56 06/08/17 13:58 DC 06/08/17 14:27 100 MCG Ondansetron HCl (Zofran Inj) 4 mg NOW STAT IV 06/08/17 13:58 06/08/17 13:59 DC 06/08/17 14:25 4 MG Miscellaneous (Rapid Sequence Induction Bag) 1 ea STK-MED ONCE N/A 06/08/17 14:00 06/08/17 14:01 DC 06/08/17 14:00 1 EA Procedure Indication: Atrial Fibrillation Written consent was obtained after the risks and benefits were explained, including but not limited to pain, thermal burn, allergic reaction, aspiration, airway obstruction, laryngospasm, infection, hypotension, and cardiorespiratory arrest. At this time, the risks of the procedure are less than the risks of NOT performing the procedure. A time out was taken and the correct patient and procedure identified. The patient was on 100% via NRB and end tidal CO2 monitoring prior to the procedure. Suction, airway equipment, medications, respiratory equipment, ACLS cart, and appropriate personnel were prepared prior to the initiation of the procedure. Sedation was achieved utilizing 100 Fentanyl , 4 Versed. The biphasic defibrillator was set to 200 joules of energy and synched. After confirmation of sedation and "all clear" safety check the synchronized shock was delivered. This resulted in successful conversion of the dysrhythmia back into sinus rhythm. See nursing notes for dosages and times. There were no complications and the patient recovered uneventfully from the procedure. ECG Indication: SOB/dyspnea, other (A-fib) Rate (beats per minute): 76 Rhythm: atrial flutter Findings: no acute ischemic change, no ectopy Comparison ECG Date: 08/15/2016 Change: A-fib has replaced Sinus Rhythm. POST CARDIOVERSION EKG: NSR 65, no ischemia, no ectopy ED Course 1123: Past medical records reviewed. The patient was evaluated in room C4. A complete history and physical examination was performed. 1356: Ordered Fentanyl 100 mcg IV, Versed 4 mg IV. 1358: Ordered Zofran 4 mg IV. 1400: Ordered Rapid Sequence Bad 1 1413: I performed a cardioversion with sedation on the patient at this time. See procedural note for further details. Normal Sinus Rhythm was obtained. 1444: Upon reexamination the patient is resting in bed, he feels well following cardioversion. I discussed results and treatment plan with the patient. He verbalizes agreement and understanding. The patient is ready for discharge. Medical Decision Differential diagnosis: Etiologies such as infections, reactive airway disease, pneumonia, pneumothorax , COPD, CHF, cardiac ischemia, pulmonary embolism, musculoskeletal, gastrointestinal, as well as others were entertained This is a 67-year-old male who presents emergency department complaining of a fibrillation. I will note that the patient is rate controlled here in the emergency department. I did discuss this case with the analytics senior manager on-call. They feel that the patient did not skip any doses of anticoagulation over the past 4 weeks that he can be safely cardioverted. I did discuss this with the patient who feels he did not skip any doses of his medication. He was cardioverted as above. The patient was then observed in the emergency department for an hour. I do feel he is well enough to be discharged home for follow-up this primary care physician. Patient was in agreement with the treatment plan. Medication Reconcilliation Current Medication List: was personally reviewed by me Impression Primary Impression: Atrial fibrillation Scribe Attestation The scribe's documentation has been prepared under my direction and personally reviewed by me in its entirety. I confirm that the note above accurately reflects all work, treatment, procedures, and medical decision making performed by me. Departure Information Dispostion Home / Self-Care Referrals hCantel Culver M.D. (MEDICAL) (PCP) Forms IMPORTANT VISIT INFORMATION Patient Instructions My [facility] Additional Instructions Follow up with DR Jang's office You have been examined and treated today on an emergency basis only. This is not a substitute for, or an effort to provide, complete comprehensive medical care. It is impossible to recognize and treat all injuries or illnesses in a single emergency department visit. It is therefore important that you follow up closely with DR Culver. Call as soon as possible for an appointment. Thank you for your time and consideration. I look forward to speaking with you again soon. Please don't hesitate to call us if you have any questions. Problem Qualifiers Primary Impression: Atrial fibrillation Atrial fibrillation type: unspecified Qualified Codes: I48.91 - Unspecified atrial fibrillation
[2017-06-08] MEDS ORDERED: ALLO300T2 PO (11:49)
[2017-06-08] MEDS ORDERED: MELO15TA4 PO (11:49)
[2017-06-08] MEDS ORDERED: TAMS0.4C38 PO (11:49)
[2017-06-08] MEDS ORDERED: PRVHFAIN INH (11:49)
[2017-06-08] MEDS ORDERED: EXEN1INJ3 SC (11:49)
[2017-06-08] MEDS ORDERED: INSDGIPEN SC (11:49)
[2017-06-08] MEDS ORDERED: AMLO-114 PO (11:49)
[2017-06-08] MEDS ORDERED: FLUT0.15 NAE (11:49)
[2017-06-08 11:59] LABS: BASO % 0.5 %; BASO ABS # 0.05 K/uL (0-0.2); EOS % 2.7 %; EOS ABS # 0.27 K/uL (0-0.5); HEMATOCRIT 43.1 % (42-52); HEMOGLOBIN 14.8 g/dL (14.0-18.0); IG# 0.04 K/uL (0.00-0.02); LYMPH % 28.9 %; LYMPH ABS # 2.91 K/uL (1.2-3.4); MEAN CELL VOLUME 90.2 fL (80-100); MEAN CORPUSCULAR HGB CONC 34.3 g/dl (32-36); MEAN PLATELET VOLUME 10.6 fL (7.4-10.4); MONO % 6.3 %; MONO ABS # 0.63 K/uL (0.11-0.59); NEUT % 61.2 %; NEUT ABS # 6.17 K/uL (1.4-6.5); PLATELET COUNT 226 K/uL (130-400); RED CELL DISTRIBUTION WIDTH CV 13.4 % (11.5-14.5); RED CELL DISTRIBUTION WIDTH SD 44.1 fL (36.4-46.3); WHITE BLOOD COUNT 10.07 K/uL (4.8-10.8)
[2017-06-08 12:08] LABS: INR 1.1 (0.9-1.1); PTT PATIENT 33.4 SECONDS (21.0-31.0)
--- NOTE | 2017-06-08 12:10 | DIAGNOSTIC IMAGING REPORT ---
CHEST ONE VIEW PORTABLE CLINICAL HISTORY: Chest pain. COMPARISON STUDY: Chest radiograph August 12, 2016. FINDINGS: Lung volumes are normal. There is no pneumothorax or pleural effusion. There is no evidence for pulmonary edema. Moderate cardiomegaly is noted. There is no consolidation. IMPRESSION: No acute cardiopulmonary findings. Moderate cardiomegaly. Electronically signed by: Colin Mckeon M.D. 06/08/2017 12:09 PM Dictated Date/Time: 06/08/2017 12:06 PM
[2017-06-08 12:19] LABS: ALT/SGPT 24 U/L (12-78); BLOOD UREA NITROGEN 19 mg/dl (7-18); CALCIUM 8.5 mg/dl (8.5-10.1); CARBON DIOXIDE 24 mmol/L (21-32); CREATININE 0.96 mg/dl (0.60-1.40); GLUCOSE 251 mg/dl (70-99); LIPASE 158 U/L (73-393); POTASSIUM 4.3 mmol/L (3.5-5.1); SODIUM 136 mmol/L (136-145)
[2017-06-08 12:24] LABS: ALKALINE PHOSPHATASE 89 U/L (45-117); AST/SGOT 17 U/L (15-37); CKMB < 0.5 ng/ml (0.5-3.6); TOTAL PROTEIN 6.8 gm/dl (6.4-8.2)
[2017-06-08] MEDS ORDERED: MIDAZOLAM HCL 5 MG/ML 1 ML VIAL IV STA (13:56)
[2017-06-08] MEDS ORDERED: FENTANYL CITRATE INJ 50 MCG/1 ML 2 ML VIAL IV STA (13:56)
[2017-06-08] MEDS ORDERED: ONDANSETRON INJ 2 MG/ML 2 ML VIAL IV STA (13:58)
[2017-06-08 14:00] VITALS: BP 112/80; PULSE 85; O2SAT 96
[2017-06-08] MEDS ORDERED: RAPID SEQUENCE INDUCTION BAG ONE (14:00)
--- NOTE | 2017-06-08 14:27 | EMERGENCY ROOM VISIT NOTE ---
Pre-Mod Sedation Assessment General Date of Moderate Sedation: Jun 08, 2017. Vital Signs: Vital Signs Past 12 Hours Date Time Temp Pulse Resp B/P (MAP) Pulse Ox O2 Delivery O2 Flow Rate FiO2 06/08/17 13:55 88 18 112/80 96 Room Air 06/08/17 12:50 77 06/08/17 12:32 72 18 92/60 96 Room Air 06/08/17 12:16 96 Room Air 06/08/17 11:08 36.7 82 18 140/109 95 Room Air Review Cardiovascular: regular rate, rhythm, no edema, no gallop, no JVD, no murmur, normal peripheral pulses Abdomen: normal bowel sounds, non tender, soft, no organomegaly, no pulsatile mass, normal rectal exam, occult blood negative Lungs: chest non-tender, lungs clear, normal breath sounds, no respiratory distress, no accessory muscle use Airway Class: II Pre-Sedation Airway Assessment Able to Visualize Vocal Cords: No Short Thick Neck: Yes Hx of Sleep Apnea: Yes Smoking Status: Never Smoker Mallampati Classification: Class III ASA Classification: Class II Procedure Planning Contraindications-for Mod Sed: None Yes Notes The planned sedation has been discussed with the patient and consent obtained. I have identified the patient, determined the appropriateness of sedation and have assessed the patient immediately prior to the procedure. All medicine(s) and interventions are by my order.
--- NOTE | 2017-06-08 14:28 | EMERGENCY ROOM VISIT NOTE ---
Post-Moderate Sedation Plan General Date of Moderate Sedation Jun 08, 2017. Vital Signs: Vital Signs Past 12 Hours Date Time Temp Pulse Resp B/P (MAP) Pulse Ox O2 Delivery O2 Flow Rate FiO2 06/08/17 13:55 88 18 112/80 96 Room Air 06/08/17 12:50 77 06/08/17 12:32 72 18 92/60 96 Room Air 06/08/17 12:16 96 Room Air 06/08/17 11:08 36.7 82 18 140/109 95 Room Air Review - Discharge Plan Post Moderate Sedation Plan: On clinical assessment, the patient appears to have tolerated the conscious sedation without complications. Patient is recovering as anticipated. Patient will continue to be monitored by nursing and may be discharged when conscious sedation discharge criteria are met.
[2017-06-08 15:13] VITALS: BP 104/62; PULSE 60; O2SAT 94
== END 2017-06-08 15:13 | disposition home or self-care (01) ==
LOC: C.EDB 10:54 → C.EDC 15:13
DX: I48.91 Unspecified atrial fibrillation (principal); E11.9 Type 2 diabetes mellitus without complications; Z83.3 Family history of diabetes mellitus; Z82.49 Family history of ischemic heart disease and other diseases of the circulatory system; Z79.82 Long term (current) use of aspirin; Z79.4 Long term (current) use of insulin

== ENCOUNTER 2024-01-16 22:59 | Inpatient (IN) ==
[2024-01-16] MEDS: NITROGLYCERIN SL 0.4 MG/TAB TAB ONE (23:23)
--- NOTE | 2024-01-16 23:32 | Emergency Department Note ---
Impression & Plan Substernal chest pain, Hyperglycemia due to diabetes mellitus admit to the [facility] ED Provider Note NAME: PAULO WASHINGTON AGE: 73 SEX: Male INFORMANT: Patient ED PROVIDER(S): Gail Santos DO CHIEF COMPLAINT: chest tightness PLAN: Disposition: admit to the [facility] MEDICAL DECISION MAKING: this is a 73-year-old male patient who presents to the emergency department with chest tightness and shortness of breath. Patient has a history of A-fib and quite frequently will have exacerbations of shortness of breath with walking up stairs or increased exercise but tonight, the patient walked in from outside and had extreme shortness of breath and tightness in his chest. He developed diaphoresis and nausea. Patient took 2 of his sublingual nitro that were old but got no relief of his chest discomfort. He tried taking his metoprolol with no relief of his symptoms. on presentation here, the patient rated his chest discomfort as a 5/10. There was very minimal ST segment elevation in the inferior leads. The patient was given 1 sublingual nitro with significant relief to his discomfort. Troponin was negative. Patient's chest discomfort returned and he had nitroglycerin placed on the chest wall and he was given a dose of IV fentanyl. Once again, the pain was relieved. patient had elevated blood glucose to 266 with a history of diabetes. Chest x- ray shows evidence of cardiomegaly with pulmonary vascular congestion. [facility] care. Care/management discussed with: electrical and instrumentation manager and [facility] Triage Nursing notes: reviewed and agree with them. Vital Signs: reviewed and unremarkable Additional History obtained from: the patient's is at the bedside Chronic Medical/Social Conditions affecting care: chronic A-fib Differential Diagnosis: STEMI, NSTEMI, CHF, DKA, angina Diagnostics, independently interpreted by me: ECG: A-fib at a rate of [address] segment elevation in leads II, III and aVF with T wave inversion in lead aVL and ST segment depression in lead I. This was compared to an EKG from 2018 and there were some slight changes. Repeat ECG A-fib at a rate of [address] segment elevation in leads 2, 3, aVF Cardiac Monitoring: Atrial fibrillation at a rate of 86 Imaging studies: portable chest x-ray: As per my independent interpretation- Cardiomegaly with pulmonary vascular congestion. HPI: 73 year old Male arrives for evaluation of Chest tightness and shortness of breath. Patient has a history of A-fib and quite frequently will have exacerbations of shortness of breath with walking up stairs or increased exercise but tonight, the patient walked in from outside and had extreme shortness of breath and tightness in his chest. He developed diaphoresis and nausea. Patient took 2 of his sublingual nitro that were old but got no relief of his chest discomfort. He tried taking his metoprolol with no relief of his symptoms. PAST MEDICAL HISTORY: See Below, PAST SURGICAL HISTORY: See Below, SOCIAL HISTORY: See Below, HOME MEDICATIONS: see list ALLERGIES: sulfa VITALS: See Below PHYSICAL EXAMINATION: HEENT: Head - normocephalic and atraumatic. Pupils are equal, round, and reactive to light. Extraocular eye muscles are intact, and sclera are anicteric. Nose - moist nasal mucosa without discharge. Mouth - moist buccal mucosa. Oropharynx is nonerythematous and there is no tonsillar exudate or edema noted. Neck: Supple; no JVD, nuchal rigidity, cervical lymphadenopathy. Heart: Irregularly irregular rhythm With a controlled rate. There is a normal S1 and S2 with no murmurs, clicks, or gallops appreciated. Lungs: Clear to auscultation bilaterally with no wheezes, rales, or rhonchi. Abdomen: Soft, completely nontender, nondistended, with good bowel sounds. There are no palpable pulsatile masses or hepatosplenomegaly. There is no guarding, rigidity, or rebound noted. Extremities: No evidence of cyanosis, clubbing, or edema. There are easily palpable peripheral pulses. Skin: warm and dry with good turgor and no rashes. Emergency department treatment: child monitor, sublingual nitro, Nitropaste, IV fentanyl, oral aspirin, IV Zofran emergency department course: The patient was evaluated in room A-9. A complete history and physical was performed. An order was placed for continuous cardiac monitoring. The patient was in atrial fibrillation at a rate of 86. Twelve- lead EKG was obtained. patient was given a dose of sublingual nitro. Twelve- lead EKG was repeated. Portable chest x-ray was performed. Patient was given a dose of oral aspirin. Nitropaste was applied. I discussed the case with the [facility] Hospitalist and they will evaluate for further inpatient care. Upon repeat assessment, his pain was returning and he was given a dose of IV fentanyl and IV Zofran. A third ECG was obtained. Past Med/Surg History Problem List (Updated 01/17/24 @ 04:04 by Gail Santos DO) Hyperglycemia due to diabetes mellitus (Acute) Substernal chest pain (Acute) Osteoarthritis of both knees Encounter for pre-operative examination Diabetes (Chronic) New onset a-fib New onset a-fib Medical History (Updated 01/17/24 @ 04:04 by Gail Santos DO) Morbid obesity History of colon polyps Gout BPH (benign prostatic hyperplasia) Diabetes mellitus, type 2 On anticoagulant therapy pradaxa bid Hypertension Hyperlipidemia Shortness of breath on exertion reason for inhaler Sleep apnea cpap Atrial fibrillation reason for pradaxa and follows with Dr. Jang Surgical History Hx of right inguinal hernia repair History of colonoscopy History of tooth extraction History of wisdom tooth extraction History of cardioversion x2 @ [facility]--not successful Family History Father Family history of diabetes mellitus Brother Family history of diabetes mellitus Family hx colonic polyps Other No family history of adverse response to anesthesia Social History Smoking Status: Never smoker Second Hand Exposure: Yes (father smoked); Do You Dip or Chew Tobacco: No; Hx Alcohol Use: No Hx Substance Use: No Preferred Language: Ukrainian Communication Ability: Effective Ict Educator Required: No Beliefs That Will Affect Care: None marital status: Current Living Situation: Spouse and Family Current Living Situation Comment: Lives with and 1 son and 1 daughter current occupational status: retired Feels Safe at Home: Yes Assistive Devices: CPAP and Glasses Allergies Allergies Allergy/AdvReac Type Severity Reaction Status Date / Time Sulfa (Sulfonamide AdvReac Intermediate Gastrointestinal Verified 01/17/24 01:23 Antibiotics) Upset Home Meds Home Medications Medication Instructions Recorded Confirmed atorvastatin 40 mg tablet 40 mg PO HS 03/07/18 01/17/24 dabigatran etexilate 150 mg 150 mg PO AMHS 03/07/18 01/17/24 capsule (Pradaxa) fosinopril 40 mg tablet 40 mg PO QAM 03/07/18 01/17/24 insulin glargine 100 unit/mL 80 unit subcut QAM 03/07/18 01/17/24 subcutaneous solution (Lantus U-100 Insulin) metoprolol tartrate 25 mg tablet 25 mg PO AMHS 03/07/18 01/17/24 nitroglycerin 0.4 mg sublingual 0.4 mg sublingual DIRECTED PRN 03/07/18 01/17/24 tablet (Nitrostat) Chest Pain tamsulosin 0.4 mg capsule (Flomax) 0.4 mg PO HS 03/07/18 01/17/24 tramadol 50 mg tablet 50 mg PO TID PRN Pain 03/07/18 01/17/24 albuterol sulfate 90 mcg/actuation 2 puff inhalation QID PRN 12/23/18 01/17/24 aerosol inhaler (Ventolin HFA) Shortness Of Breath allopurinol 300 mg tablet 300 mg PO QAM 12/23/18 01/17/24 amlodipine 5 mg tablet 5 mg PO QAM 01/17/24 01/17/24 cyanocobalamin (vitamin B-12) 1,000 mcg PO 3XWK 01/17/24 01/17/24 1,000 mcg tablet (Vitamin B-12) finasteride 5 mg tablet 5 mg PO HS 01/17/24 01/17/24 metformin 500 mg tablet,extended 500 mg PO UD 01/17/24 01/17/24 release 24 hr semaglutide 2 mg/dose (8 mg/3 mL) 2 mg subcut WK 01/17/24 01/17/24 subcutaneous pen injector (Ozempic) Results & Data (ED) Vital Signs Vital Signs - 24 hr 01/16/24 22:59 01/16/24 22:59 01/16/24 23:00 Temperature 36.8 C 36.4 C L Temperature Source Oral Temporal Artery Scan Pulse Rate 94 H Pulse Rate [Right Finger] 86 Respiratory Rate 18 Blood Pressure 121/73 Blood Pressure [Left Arm] 91/71 L Blood Pressure Mean 89 Blood Pressure Mean [Left Arm] 77 Blood Pressure Position [Left Arm] Lying Pulse Oximetry 96 95 97 Oxygen Delivery Method Room Air Room Air Room Air Sepsis Recent Fever Within 48 Hours No Sepsis New/Unexplained Change in Mental Status No Sepsis Action Taken by Nursing No Action Required 01/16/24 23:17 Temperature Temperature Source Pulse Rate 86 Pulse Rate [Right Finger] Respiratory Rate Blood Pressure Blood Pressure [Left Arm] Blood Pressure Mean Blood Pressure Mean [Left Arm] Blood Pressure Position [Left Arm] Pulse Oximetry Oxygen Delivery Method Sepsis Recent Fever Within 48 Hours Sepsis New/Unexplained Change in Mental Status Sepsis Action Taken by Nursing Laboratory Data 01/16/24 23:11 01/16/24 23:11 Lab Results 01/16/24 Range/Units 23:11 WBC 14.68 H (4.8-10.8) K/ul RBC 4.72 (4.70-6.10) M/uL Hgb 14.8 (14.0-18.0) g/dl Hct 43.7 (42.0-52.0) % MCV 92.6 (80.0-100.0) fL MCH 31.4 (25.0-34.0) pg MCHC 33.9 (32.0-36.0) g/dL RDW Std Deviation 44.9 (36.4-46.3) fL RDW Coeff of Nima 13.2 (11.5-14.5) % Plt Count 225 (130-400) K/uL MPV 10.9 (9.4-12.4) fL Immature Gran % (Auto) 1.0 % Neut % (Auto) 62.1 % Lymph % (Auto) 28.9 % [place] % (Auto) 6.5 % Eos % (Auto) 1.0 % Baso % (Auto) 0.5 % Neut # (Auto) 9.13 H (1.40-6.50) K/uL Lymph # (Auto) 4.24 H (1.20-3.40) K/uL [place] # (Auto) 0.95 H (0.11-0.59) K/uL Eos # (Auto) 0.14 (0.00-0.50) K/uL Baso # (Auto) 0.07 (0.00-0.20) K/uL Immature Gran # (Auto) 0.15 (0.01-0.20) K/uL APTT 29 (21-31) Seconds PTT Ratio 1.1 Sodium 138 (136-145) mmol/L Potassium 3.9 (3.5-5.1) mmol/L Chloride 103 (98-107) mmol/L Carbon Dioxide 27 (21-32) mmol/L Anion Gap 8 (3-11) BUN 20 (6-23) mg/dl Creatinine 0.91 (0.6-1.4) mg/dl Est Cr Clr Drug Dosing 112.8 ml/min Est GFR ( Amer) 95.2 ml/min Est GFR (Non-Af Amer) 82.2 ml/min BUN/Creatinine Ratio 22.0 H (10-20) Glucose 266 H (70-99(Fasting)) mg/dl Calcium 9.3 (8.6-10.3) mg/dl Magnesium 1.4 L (1.7-2.4) mg/dl Total Bilirubin 0.6 (0.2-1.0) mg/dl AST 14 (13-39) U/L ALT 17 (7-52) U/L Alkaline Phosphatase 58 (34-104) U/L Troponin I High Sens 9.1 (0-20) pg/ml Total Protein 7.3 (6.0-8.3) gm/dl Albumin 3.9 (3.4-5.0) gm/dl Globulin 3.4 (2.5-4.0) gm/dl Albumin/Globulin Ratio 1.1 (0.9-2) Lipase 55 (11-82) U/L Administered Medications Sodium Chloride (Nss) 1,000 mls @ 80 mls/hr IV .[id number] STA Stop: 01/17/24 13:14 Last Admin: 01/17/24 00:59 Dose: 80 mls/hr Documented By: HAWK Magnesium Sulfate/Dextrose (Magnesium Sulfate / D5w) 1 gm in 100 mls @ 50 mls/hr IV Q2H [facility] Stop: 01/17/24 05:59 Last Admin: 01/17/24 02:26 Dose: 50 mls/hr Documented By: HAWK Discontinued Medications Aspirin (Aspirin Chew 324 Mg) 324 mg PO NOW STA Stop: 01/17/24 01:23 Last Admin: 01/17/24 01:30 Dose: 324 mg Documented By: HAWK Fentanyl Citrate (Fentanyl Citrate Pf 100 Mcg/2 Ml Vial) 100 mcg IV NOW ONE Stop: 01/17/24 01:21 Last Admin: 01/17/24 01:30 Dose: 100 mcg Documented By: HAWK Nitroglycerin (Nitroglycerin Sl 0.4 Mg/Tab Tab) Confirm Administered Dose 0.4 mg .ROUTE .STK-MED ONE Stop: 01/16/24 23:23 Last Admin: 01/16/24 23:23 Dose: 0.4 mg Documented By: HAWK Nitroglycerin (Nitroglycerin 2% Ointment 30gm Tube) 0.5 inch EXT NOW ONE Stop: 01/17/24 00:47 Last Admin: 01/17/24 00:53 Dose: 0.5 inch Documented By: HAWK Ondansetron HCl (Ondansetron Inj 2 Mg/Ml 2 Ml Vial) 4 mg IV NOW STA Stop: 01/17/24 01:21 Last Admin: 01/17/24 01:30 Dose: 4 mg Documented By: HAWK Discharge Plan Visit Data Chief Complaint: Chest Pain Stated Complaint: CHEST PAIN, SWEATS, NAUSEA ED Provider: Gail Santos Discharge Problem: Substernal chest pain, Hyperglycemia due to diabetes mellitus Discharge Instructions Interventions: ED Discharge Assessment Last Done: 01/17/24 03:05
[2024-01-16 23:44] LABS: Basophils # (auto) 0.07 K/uL (0.00-0.20); Basophils % (auto) 0.5 %; Eosinophils # (auto) 0.14 K/uL (0.00-0.50); Hematocrit (blood only) 43.7 % (42.0-52.0); Hemoglobin 14.8 g/dl (14.0-18.0); Immature Granulocytes # (auto) 0.15 K/uL (0.01-0.20); Lymphocytes # (auto) 4.24 K/uL (1.20-3.40); Lymphocytes % (auto) 28.9 %; Mean Corpuscular Hemoglobin 31.4 pg (25.0-34.0); Mean Corpuscular Hgb Conc 33.9 g/dL (32.0-36.0); Mean Corpuscular Volume 92.6 fL (80.0-100.0); Mean Platelet Volume 10.9 fL (9.4-12.4); Monocytes # (auto) 0.95 K/uL (0.11-0.59); Monocytes % (auto) 6.5 %; Neutrophils # (auto) 9.13 K/uL (1.40-6.50); Neutrophils % (auto) 62.1 %; Platelet Count 225 K/uL (130-400); RDW Coefficient of Variation 13.2 % (11.5-14.5); RDW Standard Deviation 44.9 fL (36.4-46.3); Red Blood Count 4.72 M/uL (4.70-6.10); White Blood Count 14.68 K/ul (4.8-10.8)
[2024-01-17 00:02] LABS: Albumin Globulin Ratio 1.1 (0.9-2); Albumin Level 3.9 gm/dl (3.4-5.0); Bilirubin,Total 0.6 mg/dl (0.2-1.0); Calcium 9.3 mg/dl (8.6-10.3); Creatinine Clr Calc Pharmacy 112.8 ml/min; Est GFR (African American) 95.2 ml/min; Est GFR (Non-African American) 82.2 ml/min; Globulin 3.4 gm/dl (2.5-4.0); Potassium 3.9 mmol/L (3.5-5.1); Total Protein 7.3 gm/dl (6.0-8.3)
[2024-01-17 00:08] LABS: Troponin I High Sensitivity 9.1 pg/ml (0-20)
[2024-01-17] MEDS: NITROGLYCERIN 2% OINTMENT 30GM TUBE EXT ONE (00:53)
[2024-01-17] MEDS: SODIUM CHLORIDE 0.9% 1,000 ML IV STA (00:59)
[2024-01-17 01:01] LABS: Magnesium 1.4 mg/dl (1.7-2.4)
[2024-01-17] MEDS: ASPIRIN CHEW 324 MG PO STA (01:30)
[2024-01-17] MEDS: ONDANSETRON INJ 2 MG/ML 2 ML VIAL IV STA (01:30)
[2024-01-17] MEDS: fentaNYL citrate PF 100 MCG/2 ML VIAL IV ONE (01:30)
[2024-01-17 02:11] LABS: Partial Thromboplastin Ratio 1.1; Partial Thromboplastin Time 29 Seconds (21-31)
[2024-01-17] MEDS: MAGNESIUM SULFATE / D5W 1 GM/100 ML BAG IV SCH ×2 (02:26→14:47)
--- NOTE | 2024-01-17 02:41 | History & Physical Report ---
Date of Service January 17, 2024 Assessment & Plan (1) NSTEMI (non-ST elevated myocardial infarction): Plan: A-fib, rate controlled on Pradaxa hypertension, slightly elevated hyperlipidemia, on statin Rx COPD as per records, patient without pulmo symptoms currently DM2 insulin requiring, suboptimal control as of recent hemoglobin A1c of 9.28 June 2023 Admit to PCU Aspirin, beta-munir, statin Rx Hold Pradaxa for now, IV heparin 12 hours after last dose of Pradaxa last night Nitro as needed TTE, Cardiology consult Re: NSTEMI N.p.o. until patient seen by cardiology in anticipation of ischemic workup Basal bolus insulin adjusted for n.p.o. status, ISS BG goal 1 10-1 40 Update hemoglobin A1c and lipid profile DVT prophylaxis. IV heparin while Pradaxa on hold Full code Patient requesting updates providers. Ms. Tootie Elam, contact #[phone]. Text document was generated using [employer] voice recognition software. It may contain grammatical or spelling errors. Kindly contact undersigned for clarification of any documentation item in question. History of Present Illness Chief Complaint: Chest pain Primary Care Provider: Dario Galloway MD History obtained from patient, family, and records. Medical history significant for A-fib on Pradaxa, hypertension, hyperlipidemia, COPD as per records, ROGER on CPAP, DM2 insulin requiring, GERD, BPH, gout. Last confinement 2016 for new onset A-fib status post cardioversion. Patient discharged on metoprolol and Pradaxa. Patient had achy left-sided chest pain without cough, SOB symptoms last night. Symptoms transiently improved by consumption of old nitroglycerin tablets at home. Compliant with home medications. Denies fluid retention. Aspirin and Nitropaste administered at the ER. 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 Allergies Allergy/AdvReac Type Severity Reaction Status Date / Time Sulfa (Sulfonamide AdvReac Intermediate Gastrointestinal Verified 01/17/24 01:23 Antibiotics) Upset Home Medications Medication Instructions Recorded Confirmed Type atorvastatin 40 mg tablet 40 mg PO HS 03/07/18 01/17/24 History dabigatran etexilate 150 mg 150 mg PO AMHS 03/07/18 01/17/24 History capsule (Pradaxa) fosinopril 40 mg tablet 40 mg PO QAM 03/07/18 01/17/24 History insulin glargine 100 unit/mL 80 unit subcut QAM 03/07/18 01/17/24 History subcutaneous solution (Lantus U-100 Insulin) metoprolol tartrate 25 mg tablet 25 mg PO AMHS 03/07/18 01/17/24 History nitroglycerin 0.4 mg sublingual 0.4 mg sublingual DIRECTED PRN 03/07/18 01/17/24 History tablet (Nitrostat) Chest Pain tamsulosin 0.4 mg capsule (Flomax) 0.4 mg PO HS 03/07/18 01/17/24 History tramadol 50 mg tablet 50 mg PO TID PRN Pain 03/07/18 01/17/24 History albuterol sulfate 90 mcg/actuation 2 puff inhalation QID PRN 12/23/18 01/17/24 History aerosol inhaler (Ventolin HFA) Shortness Of Breath allopurinol 300 mg tablet 300 mg PO QAM 12/23/18 01/17/24 History amlodipine 5 mg tablet 5 mg PO QAM 01/17/24 01/17/24 History cyanocobalamin (vitamin B-12) 1,000 mcg PO 3XWK 01/17/24 01/17/24 History 1,000 mcg tablet (Vitamin B-12) finasteride 5 mg tablet 5 mg PO HS 01/17/24 01/17/24 History metformin 500 mg tablet,extended 500 mg PO UD 01/17/24 01/17/24 History release 24 hr semaglutide 2 mg/dose (8 mg/3 mL) 2 mg subcut WK 01/17/24 01/17/24 History subcutaneous pen injector (Ozempic) Past Med/Surg History Problem List (Updated 01/17/24 @ 09:40 by Chris العراقي DO) Dyslipidemia, goal LDL below 70 Hypertension Chronic atrial fibrillation NSTEMI (non-ST elevated myocardial infarction) Hyperglycemia due to diabetes mellitus (Acute) Substernal chest pain (Acute) Osteoarthritis of both knees Encounter for pre-operative examination Diabetes (Chronic) New onset a-fib New onset a-fib Medical History (Updated 01/17/24 @ 09:40 by Chris العراقي DO) Morbid obesity History of colon polyps Gout BPH (benign prostatic hyperplasia) Diabetes mellitus, type 2 On anticoagulant therapy pradaxa bid Hyperlipidemia Shortness of breath on exertion reason for inhaler Sleep apnea cpap Atrial fibrillation reason for pradaxa and follows with Dr. Jang Surgical History Hx of right inguinal hernia repair History of colonoscopy History of tooth extraction History of wisdom tooth extraction History of cardioversion x2 @ [facility]--not successful Family History Father Family history of diabetes mellitus Brother Family history of diabetes mellitus Family hx colonic polyps Other No family history of adverse response to anesthesia Social History Smoking Status: Never smoker Second Hand Exposure: Yes (father smoked); Do You Dip or Chew Tobacco: No; Hx Alcohol Use: No Hx Substance Use: No Preferred Language: Arabic Communication Ability: Effective Small Products Assembler Required: No Beliefs That Will Affect Care: None marital status: Current Living Situation: Spouse and Family Current Living Situation Comment: Lives with and 1 son and 1 daughter current occupational status: retired Feels Safe at Home: Yes Assistive Devices: CPAP and Glasses Review of Systems Review of Systems: As per HPI, all other systems reviewed and negative Physical Exam Physical Exam: GENERAL: Comfortable, slightly anxious, pleasant, morbidly obese, no respiratory distress SKIN: Normal color, warm HEENT: [place] palpebral conjunctivae, no ptosis, moist buccal mucosa NECK : Supple, short neck, no tenderness CHEST : CTA, no tenderness HEART : Irregular, no obvious murmurs ABDOMEN: Some distention, nontender EXTREMITIES : Minimal LE swelling, no LE tenderness, no other conspicuous deformities noted NEUROLOGIC : Coherent, no facial asymmetry, no other gross focality Results & Data Results & Data Vital Signs (Past 12 Hours) Vital Signs Temp Pulse Pulse Resp BP BP Pulse Ox 01/16/24 23:17 86 01/16/24 23:00 36.4 C L 94 H 121/73 97 01/16/24 22:59 36.8 C 86 18 91/71 L 95 01/16/24 22:59 96 O2 Del Method 01/16/24 23:17 01/16/24 23:00 Room Air 01/16/24 22:59 Room Air 01/16/24 22:59 Room Air Laboratory Results Laboratory Results WBC 14.68 K/ul (4.8-10.8) H 01/16/24 23:11 RBC 4.72 M/uL (4.70-6.10) 01/16/24 23:11 Hgb 14.8 g/dl (14.0-18.0) 01/16/24 23:11 Hct 43.7 % (42.0-52.0) 01/16/24 23:11 MCV 92.6 fL (80.0-100.0) 01/16/24 23:11 MCH 31.4 pg (25.0-34.0) 01/16/24 23:11 MCHC 33.9 g/dL (32.0-36.0) 01/16/24 23:11 RDW Std Deviation 44.9 fL (36.4-46.3) 01/16/24 23:11 RDW Coeff of Nima 13.2 % (11.5-14.5) 01/16/24 23:11 Plt Count 225 K/uL (130-400) 01/16/24 23:11 MPV 10.9 fL (9.4-12.4) 01/16/24 23:11 Immature Gran % (Auto) 1.0 % 01/16/24 23:11 Neut % (Auto) 62.1 % 01/16/24 23:11 Lymph % (Auto) 28.9 % 01/16/24 23:11 [place] % (Auto) 6.5 % 01/16/24 23:11 Eos % (Auto) 1.0 % 01/16/24 23:11 Baso % (Auto) 0.5 % 01/16/24 23:11 Neut # (Auto) 9.13 K/uL (1.40-6.50) H 01/16/24 23:11 Lymph # (Auto) 4.24 K/uL (1.20-3.40) H 01/16/24 23:11 [place] # (Auto) 0.95 K/uL (0.11-0.59) H 01/16/24 23:11 Eos # (Auto) 0.14 K/uL (0.00-0.50) 01/16/24 23:11 Baso # (Auto) 0.07 K/uL (0.00-0.20) 01/16/24 23:11 Immature Gran # (Auto) 0.15 K/uL (0.01-0.20) 01/16/24 23:11 APTT 29 Seconds (21-31) 01/16/24 23:11 PTT Ratio 1.1 01/16/24 23:11 Sodium 138 mmol/L (136-145) 01/16/24 23:11 Potassium 3.9 mmol/L (3.5-5.1) 01/16/24 23:11 Chloride 103 mmol/L (98-107) 01/16/24 23:11 Carbon Dioxide 27 mmol/L (21-32) 01/16/24 23:11 Anion Gap 8 (3-11) 01/16/24 23:11 BUN 20 mg/dl (6-23) 01/16/24 23:11 Creatinine 0.91 mg/dl (0.6-1.4) 01/16/24 23:11 Est Cr Clr Drug Dosing 112.8 ml/min 01/16/24 23:11 Est GFR ( Amer) 95.2 ml/min 01/16/24 23:11 Est GFR (Non-Af Amer) 82.2 ml/min 01/16/24 23:11 BUN/Creatinine Ratio 22.0 (10-20) H 01/16/24 23:11 Glucose 266 mg/dl (70-99(Fasting)) H 01/16/24 23:11 Calcium 9.3 mg/dl (8.6-10.3) 01/16/24 23:11 Magnesium 1.4 mg/dl (1.7-2.4) L 01/16/24 23:11 Total Bilirubin 0.6 mg/dl (0.2-1.0) 01/16/24 23:11 AST 14 U/L (13-39) 01/16/24 23:11 ALT 17 U/L (7-52) 01/16/24 23:11 Alkaline Phosphatase 58 U/L (34-104) 01/16/24 23:11 Troponin I High Sens 9.1 pg/ml (0-20) 01/16/24 23:11 Total Protein 7.3 gm/dl (6.0-8.3) 01/16/24 23:11 Albumin 3.9 gm/dl (3.4-5.0) 01/16/24 23:11 Globulin 3.4 gm/dl (2.5-4.0) 01/16/24 23:11 Albumin/Globulin Ratio 1.1 (0.9-2) 01/16/24 23:11 Lipase 55 U/L (11-82) 01/16/24 23:11 Diagnostic Findings Chest x-ray as per my interpretation cardiomegaly EKG as per my interpretation : Rate 80, A-fib, LAD, LAFB, septal infarct, T wave abnormalities septal and lateral leads
[2024-01-17] MEDS ORDERED: PROMETHAZINE 6.25 MG/50.25 ML BAG IV PRN (02:46)
[2024-01-17] MEDS ORDERED: CARBOHYDRATES FOR HYPOGLYCEMIA PO PRN (02:46)
[2024-01-17] MEDS ORDERED: GLUCAGON FOR INJ 1 MG VIAL SQ PRN (02:46)
[2024-01-17] MEDS ORDERED: GLUCOSE 40% GEL 15 GM TUBE PO PRN (02:46)
[2024-01-17] MEDS ORDERED: LORazepam 0.5 MG TAB PO PRN (02:46)
[2024-01-17] MEDS ORDERED: DEXTROSE 50% 50 ML SYRINGE IV PRN (02:46)
[2024-01-17] MEDS ORDERED: MoRPHine SULFATE 4 MG/ML 1 ML CARP\\VIAL IV PRN (02:46)
[2024-01-17] MEDS ORDERED: GLUCOSE 10 TAB/TUBE PO PRN (02:46)
[2024-01-17 04:31] LABS: Chol HDL Ratio 2.4 (0-5)
[2024-01-17 04:40] LABS: Partial Thromboplastin Ratio 1.2; Partial Thromboplastin Time 32 Seconds (21-31)
[2024-01-17] MEDS: INSULIN ASPART PER UNIT CHARGE SC SCH (05:14)
[2024-01-17] MEDS: oxyCODONE HCL IR 5 MG TAB (IMMEDIATE RELEASE) PO PRN (05:17)
--- NOTE | 2024-01-17 06:53 | XRay Report ---
XR chest 1V portable CLINICAL HISTORY: Chest pain, nonspecific TECHNIQUE: Single frontal radiograph of the chest was obtained. Comparison: Comparison is made to chest radiograph 01/05/2018 FINDINGS: No lines and tubes are seen. Cardiomegaly is noted. The aortic arch is calcified. The lungs are clear . No evidence of pleural effusion or pneumothorax. IMPRESSION: No acute chest disease. ACT 112: Negative or not required by law. Electronically signed by: Daniel Augustine M.D. 01/17/2024 6:52 AM
[2024-01-17 08:04] LABS: Basophils # (auto) 0.05 K/uL (0.00-0.20); Basophils % (auto) 0.4 %; Eosinophils # (auto) 0.09 K/uL (0.00-0.50); Eosinophils % (auto) 0.8 %; Hematocrit (blood only) 41.4 % (42.0-52.0); Hemoglobin 13.8 g/dl (14.0-18.0); Immature Granulocytes # (auto) 0.13 K/uL (0.01-0.20); Immature Granulocytes % (auto) 1.1 %; Lymphocytes # (auto) 2.36 K/uL (1.20-3.40); Lymphocytes % (auto) 19.8 %; Mean Corpuscular Hemoglobin 31.2 pg (25.0-34.0); Mean Corpuscular Hgb Conc 33.3 g/dL (32.0-36.0); Mean Corpuscular Volume 93.7 fL (80.0-100.0); Mean Platelet Volume 9.8 fL (9.4-12.4); Monocytes # (auto) 0.75 K/uL (0.11-0.59); Monocytes % (auto) 6.3 %; Neutrophils # (auto) 8.56 K/uL (1.40-6.50); Neutrophils % (auto) 71.6 %; Platelet Count 237 K/uL (130-400); RDW Coefficient of Variation 13.2 % (11.5-14.5); RDW Standard Deviation 45.5 fL (36.4-46.3); Red Blood Count 4.42 M/uL (4.70-6.10); White Blood Count 11.94 K/ul (4.8-10.8)
[2024-01-17] MEDS: METOPROLOL TARTRATE 25 MG TAB PO SCH (08:05)
[2024-01-17] MEDS: allopurinoL 300 MG TAB PO SCH (08:05)
[2024-01-17] MEDS: lisinopril 40 MG TAB PO SCH (08:05)
[2024-01-17] MEDS: amLODIPine BESYLATE 5 MG TAB PO SCH (08:05)
[2024-01-17 08:11] LABS: Estimated Average Glucose 180 mg/dl; Hemoglobin A1C 7.9 % (4.5-5.6)
[2024-01-17] MEDS: LANTUS PER UNIT CHARGE SQ SCH (08:15)
--- NOTE | 2024-01-17 08:17 | Electrocardiogram Report ---
Test Reason : Blood Pressure : */* mmHG Vent. Rate : 82 BPM Atrial Rate : * BPM P-R Int : * ms QRS Dur : 110 ms QT Int : 392 ms P-R-T Axes : * -37 88 degrees QTcB Int : 457 ms Atrial fibrillation Left anterior fascicular block Abnormal ECG When compared with ECG of 07-Mar-2018 20:12, No significant change Confirmed by Fercho Denny ([id number]) on 01/17/2024 8:17:14 AM Referred By: REFERRED SELF Confirmed By: Fercho Denny
--- NOTE | 2024-01-17 08:19 | Electrocardiogram Report ---
Test Reason : Blood Pressure : */* mmHG Vent. Rate : 74 BPM Atrial Rate : * BPM P-R Int : * ms QRS Dur : 102 ms QT Int : 408 ms P-R-T Axes : * -44 67 degrees QTcB Int : 452 ms Atrial fibrillation Left anterior fascicular block Abnormal ECG When compared with ECG of 17-Jan-2024 01:15, No significant change was found Confirmed by Fercho Denny ([id number]) on 01/17/2024 8:19:00 AM Referred By: REFERRED SELF Confirmed By: Fercho Denny
[2024-01-17 08:32] LABS: Partial Thromboplastin Ratio 1.3; Partial Thromboplastin Time 35 Seconds (21-31)
[2024-01-17 08:44] LABS: BUN Creatinine Ratio 31.3 (10-20); Calcium 8.5 mg/dl (8.6-10.3); Creatinine Clr Calc Pharmacy 160.4 ml/min; Est GFR (Non-African American) 95.8 ml/min; Potassium 4.4 mmol/L (3.5-5.1)
[2024-01-17 08:54] LABS: Troponin I High Sensitivity 10547.5 pg/ml (0-20)
--- NOTE | 2024-01-17 09:42 | Cardiology Consultation ---
Date of Consultation January 17, 2024 Assessment & Plan (1) NSTEMI (non-ST elevated myocardial infarction): (2) Chronic atrial fibrillation: (3) Hypertension: (4) Dyslipidemia, goal LDL below 70: (5) Aortic stenosis: Plan 73-year-old male presents with chest pain and significantly elevated high- sensitivity troponin suggestive of NSTEMI. Ongoing 1-2/10 chest discomfort noted on exam. Preliminary review of bedside echocardiogram reveals inferior wall hypokinesis and moderate aortic valve stenosis. Third set of high- sensitivity troponin greater than 10,000. Recommend repeat stat ECG. Risk, benefits, alternatives to urgent cardiac catheterization discussed. Patient agreeable to proceed. All questions answered to satisfaction both patient and his at bedside. Last dose of Pradaxa approximately 9 PM 01/16/2024. Will initiate IV heparin during catheterization procedure. I spent a total of 75 minutes on the date of service in preparation, delivery, and documentation of the care provided to this patient, excluding any time spent in the performance of separately billed services. History of Present Illness Reason for Consultation: chest pain Requesting Physician: Dr. Omero Dos Santos Attending Physician: Lalito Santizo DO Allergies Allergy/AdvReac Type Severity Reaction Status Date / Time Sulfa (Sulfonamide AdvReac Intermediate Gastrointestinal Verified 01/17/24 01:23 Antibiotics) Upset Home Medications Medication Instructions Recorded Confirmed Type atorvastatin 40 mg tablet 40 mg PO HS 03/07/18 01/17/24 History dabigatran etexilate 150 mg 150 mg PO [facility] 03/07/18 01/17/24 History capsule (Pradaxa) fosinopril 40 mg tablet 40 mg PO QAM 03/07/18 01/17/24 History insulin glargine 100 unit/mL 80 unit subcut [facility] 03/07/18 01/17/24 History subcutaneous solution (Lantus U-100 Insulin) metoprolol tartrate 25 mg tablet 25 mg PO [facility] 03/07/18 01/17/24 History nitroglycerin 0.4 mg sublingual 0.4 mg sublingual DIRECTED PRN 03/07/18 01/17/24 History tablet (Nitrostat) Chest Pain tamsulosin 0.4 mg capsule (Flomax) 0.4 mg PO HS 03/07/18 01/17/24 History tramadol 50 mg tablet 50 mg PO TID PRN Pain 03/07/18 01/17/24 History albuterol sulfate 90 mcg/actuation 2 puff inhalation QID PRN 12/23/18 01/17/24 History aerosol inhaler (Ventolin HFA) Shortness Of Breath allopurinol 300 mg tablet 300 mg PO QAM 12/23/18 01/17/24 History amlodipine 5 mg tablet 5 mg PO QAM 01/17/24 01/17/24 History cyanocobalamin (vitamin B-12) 1,000 mcg PO 3XWK 01/17/24 01/17/24 History 1,000 mcg tablet (Vitamin B-12) finasteride 5 mg tablet 5 mg PO HS 01/17/24 01/17/24 History metformin 500 mg tablet,extended 500 mg PO UD 01/17/24 01/17/24 History release 24 hr semaglutide 2 mg/dose (8 mg/3 mL) 2 mg subcut WK 01/17/24 01/17/24 History subcutaneous pen injector (Ozempic) Patient History Medical History (Updated 01/17/24 @ 19:35 by Chris العراقي DO) Morbid obesity History of colon polyps Gout BPH (benign prostatic hyperplasia) Diabetes mellitus, type 2 On anticoagulant therapy pradaxa bid Hyperlipidemia Shortness of breath on exertion reason for inhaler Sleep apnea cpap Atrial fibrillation reason for pradaxa and follows with Dr. Jang Surgical History Hx of right inguinal hernia repair History of colonoscopy History of tooth extraction History of wisdom tooth extraction History of cardioversion x2 @ [facility]--not successful Family History Father Family history of diabetes mellitus Brother Family history of diabetes mellitus Family hx colonic polyps Other No family history of adverse response to anesthesia Social History Smoking Status: Never smoker Second Hand Exposure: Yes (father smoked); Hx Alcohol Use: No Hx Substance Use: No Preferred Language: Khmer Communication Ability: Effective Beam Saw Operator Required: No Beliefs That Will Affect Care: None marital status: Current Living Situation: Spouse and Family Current Living Situation Comment: Lives with and 1 son and 1 daughter current occupational status: retired Feels Safe at Home: Yes Safety Concerns: Feels Safe At This Time Assistive Devices: Brace/Splint/Immobilizer, CPAP, Glasses, Scooter/Electric Scooter, Walker and Wheelchair Review of Systems Review of Systems: All systems reviewed & are unremarkable except as noted in Subjective Physical Exam Constitutional: no acute distress Respiratory: no respiratory distress and no retractions Auscultation: no crackles, no rales, no rhonchi and no wheezes Cardiovascular: Rate/Rhythm: + irregularly irregular Heart Sounds: normal S1 and normal S2; no murmur Vessels: femoral pulses present and radial pulses present; no JVD Extremities: + edema (1-2+ b/L LE edema) Neurologic: CN's II-XI intact bilaterally and moves all extremities; no focal motor deficits Results & Data Vital Signs (Past 12 Hours) Vital Signs Temp Pulse Pulse Resp BP BP Pulse Ox 01/17/24 08:04 77 117/77 01/17/24 07:58 73 18 97/64 L 96 01/17/24 06:59 72 01/17/24 03:04 67 18 97 01/16/24 23:17 86 01/16/24 23:00 36.4 C L 94 H 121/73 97 01/16/24 22:59 36.8 C 86 18 91/71 L 95 01/16/24 22:59 96 O2 Del Method 01/17/24 08:04 01/17/24 07:58 Room Air 01/17/24 06:59 01/17/24 03:04 Room Air 01/16/24 23:17 01/16/24 23:00 Room Air 01/16/24 22:59 Room Air 01/16/24 22:59 Room Air Laboratory Results Cardiac Enzymes 01/16/24 01/17/24 01/17/24 Range/Units 23:11 03:58 07:45 AST 14 (13-39) U/L Troponin I High Sens 9.1 541.0 H* D 98874.5 H* D (0-20) pg/ml Coagulation 01/16/24 01/17/24 01/17/24 Range/Units 23:11 03:58 07:45 APTT 29 32 H 35 H (21-31) Seconds Lipids 01/17/24 01/17/24 Range/Units 03:58 07:45 Triglycerides 110 Cancelled (0-150) mg/dl Cholesterol 118 Cancelled (0-200) mg/dl HDL Cholesterol 49 Cancelled mg/dl Cholesterol/HDL Ratio 2.4 Cancelled (0-5) CBC 01/16/24 01/17/24 Range/Units 23:11 07:45 WBC 14.68 H 11.94 H (4.8-10.8) K/ul RBC 4.72 4.42 L (4.70-6.10) M/uL Hgb 14.8 13.8 L (14.0-18.0) g/dl Hct 43.7 41.4 L (42.0-52.0) % Plt Count 225 237 (130-400) K/uL Neut # (Auto) 9.13 H 8.56 H (1.40-6.50) K/uL Lymph # (Auto) 4.24 H 2.36 (1.20-3.40) K/uL Miner # (Auto) 0.95 H 0.75 H (0.11-0.59) K/uL Eos # (Auto) 0.14 0.09 (0.00-0.50) K/uL Baso # (Auto) 0.07 0.05 (0.00-0.20) K/uL Comprehensive Metabolic Panel 01/16/24 01/17/24 Range/Units 23:11 07:45 Sodium 138 137 (136-145) mmol/L Potassium 3.9 4.4 (3.5-5.1) mmol/L Chloride 103 106 (98-107) mmol/L Carbon Dioxide 27 24 (21-32) mmol/L BUN 20 20 (6-23) mg/dl Creatinine 0.91 0.64 (0.6-1.4) mg/dl Glucose 266 H 254 H (70-99(Fasting)) mg/dl Calcium 9.3 8.5 L (8.6-10.3) mg/dl AST 14 (13-39) U/L ALT 17 (7-52) U/L Alkaline Phosphatase 58 (34-104) U/L Total Protein 7.3 (6.0-8.3) gm/dl Albumin 3.9 (3.4-5.0) gm/dl Intake and Output 01/16/24 01/17/2424 22:59 06:59 14:59 Intake Total 100 / 100 100 / 100 Output Total 0 / 0 Balance 100 / 100 100 / 100 Intake: IV 100 / 100 100 / 100 Magnesium Sulfate / D5w 1 gm In 100 / 100 100 / 100 100 ml @ 50 mls/hr IV Q2H KEITH Rx#:[id number] Oral 0 / 0 Output: Urine 0 / 0 Other: # Unmeasured Voids 1 Weight 167.8 kg Weight Measurement Method Built in [facility] (3) Hypertension Hypertension type: primary hypertension Qualified Code(s): I10 - Essential (primary) hypertension (5) Aortic stenosis Cardiac valve disease etiology: nonrheumatic Qualified Code(s): I35.0 - Nonrheumatic aortic (valve) stenosis
--- OUTSIDE RECORDS SUMMARY | 2024-01-17 10:08 | External Medical Summary | Summary of Care ---
Author Name Unknown Organization [facility] Address [address] [place] [address] Phone [phone] Care Team Providers Care Sld Inclusion Teacher Name Role Phone Dario Galloway MD Primary Care Provider [phone] Reason for Visit * Reason Onset Date Comments Med Request 01/11/2024 Encounter Details Date Type Department Care Team (Late st Contact Info) Description 01/11/2024 Telephone [facility] [address] [place] [address] Dario Galloway MD [address] [place] [address] Med Request Allergies Active Allergy Reactions Criticality Noted Date Comments Sulfa Antibiotics Nausea/vomiting 11/14/2005 documented as of this encounter (statuses as of 01/11/2024) Medications Medication Sig Dispensed Refills Start Date End Date Status OCEAN NASAL SPRAY 0.65 % NA SOLNIndications:Ch ronic rhinitis Two sprays in each nostril as needed for nasal dryness or congestion 1 Bottle 5 04/09/20 12 Active ONETOUCH ULTRA SYSTEM W/DEVICE KITIndications:DM type 2, goal A1c below 7 Use up to four times a day as directed 1 Kit 0 10/12/19 13 Active albuterol (VENTOLIN HFA) 108 (90 BASE) MCG/ACT inhalerIndications :Chronic rhinitis, unspecified type Inhale 2 Puffs by mouth 4 times a day as needed for Cough or Wheezing. 3 Inhaler 3 07/03/19 18 Active zoster vac recomb adjuvanted (SHINGRIX) 50 MCG injectionIndicatio ns:Need for shingles vaccine Inject 0.5 mL into a large muscle now and repeat dose in 60 to 180 days 1 Each 1 12/22/19 18 Active Additional Information Patient not taking.Reported on 10/25/2023 Blood Glucose Monitoring Suppl (Server Density ULTRA 2) w/Device KITIndications:Typ e 2 diabetes mellitus with hemoglobin A1c goal of less than 8.0% ([facility]) Test up to 4 times daily or as directed 1 Kit 04/14/20 19 Active zoster vac recomb adjuvanted (SHINGRIX) 50 MCG/0.5ML injectionIndicatio ns:Need for shingles vaccine,Encounter for long-term (current) use of medications Inject 0.5 mL into a large muscle now and repeat dose in 60 to 180 days 1 Each 1 07/08/19 20 Active Additional Information Patient not taking.Reported on 10/25/2023 [employer] DELICA LANCETS 33G MIS Use to test blood sugar 4 times per day. 400 Each 3 07/18/19 20 Active Ipratropium [place] 0.06 % Nasal Solution (Atrovent)Indicati ons:Vasomotor rhinitis Administer 2 Sprays into each nostril 4 times a day as needed for Rhinitis. 30 mL 5 02/12/20 21 Active Ipratropium-[place] rol 0.5-2.5 (3) MG/3ML Inhalation Solution (Duoneb)Indication s:Bronchitis, complicated Inhale 3 mL via nebulizer 4 times a day. 120 mL 5 05/03/20 21 Active Bumetanide 2 MG Oral Tablet Take by mouth 1 Tablet in the morning. 90 Tablet 1 08/12/19 22 Active guaiFENesin-Codein e 100-10 MG/5ML Oral Syrup (Robitussin AC)Indications:Acu te maxillary sinusitis, recurrence not specified Take 5 mL by mouth every 4 hours as needed for Cough. 120 mL 1 04/25/20 22 Active Benzonatate 100 MG Oral Capsule (Tessalon [place])Indications :Bronchitis, complicated Take 1-2 Capsules by mouth 3 times a day as needed for Cough. Do not cut, crush, or chew. 50 Capsule 1 05/30/19 23 Active amLODIPine Besylate 5 MG Oral Tablet (Norvasc) Take 1 Tablet by mouth in the morning. 90 Tablet 3 10/21/19 23 Active Fluticasone Propionate 50 MCG/ACT Nasal Suspension (Flonase)Indicatio ns:Seasonal allergic rhinitis, unspecified trigger Administer 2 Sprays into each nostril in the morning. 48 g 3 11/15/19 23 Active Metoprolol Tartrate 25 MG Oral Tablet (Lopressor)Indicat ions:Paroxysmal atrial fibrillation (HCC) Take 1 Tablet by mouth in the morning and 1 Tablet at noon and 1 Tablet before bedtime. 270 Tablet 3 04/04/20 23 Active Nitroglycerin 0.4 MG Sublingual Tablet Sublingual (Nitrostat)Indicat ions:Atrial fibrillation, unspecified type (HCC),History of cardioversion Place 1 Tablet under the tongue as needed for Pain, Chest. May repeat 3 times. If chest pain continues, call 911. 25 Tablet 5 04/25/20 23 Active Allopurinol 300 MG Oral Tablet (Zyloprim) TAKE 1 TABLET BY MOUTH ONCE DAILY 90 Tablet 2 08/17/19 24 Active Benzonatate 100 MG Oral CapsuleIndications :Viral upper respiratory tract infection Take 1 Capsule by mouth 3 times a day as needed for Cough. 30 Capsule 1 08/24/19 24 Active Fosinopril Sodium 40 MG Oral Tablet (Monopril)Indicati ons:Essential hypertension with goal blood pressure less than 140/90 Take 1 Tablet by mouth in the morning. 90 Tablet 1 09/10/19 24 Active Ozempic (2 MG/DOSE) 8 MG/3ML Subcutaneous Solution Pen-injector (Semaglutide (2 MG/DOSE))Indicatio ns:Type 2 diabetes mellitus with hemoglobin A1c goal of less than 8.0% (HCC) Inject 2mg under the skin once weekly 9 mL 3 09/07/19 24 Active Tamsulosin HCl 0.4 MG Oral Capsule (Flomax)Indication s:BPH with obstruction/lower urinary tract symptoms Take 1 Capsule by mouth in the morning. 90 Capsule 3 10/19/19 24 Active amLODIPine Besylate 5 MG Oral Tablet (Norvasc)Indicatio ns:Essential hypertension with goal blood pressure less than 140/90 Take 1 Tablet by mouth in the morning. 90 Tablet 3 10/18/20 24 Active B-12 1000 MCG Oral TabletIndications: B12 deficiency 1 tab 3 days per week 90 Tablet 10/25/19 24 Active Atorvastatin Calcium 40 MG Oral Tablet (Lipitor)Indicatio ns:Dyslipidemia, goal LDL below 70 Take 1 Tablet by mouth every night at bedtime. 90 Tablet 11/08/19 24 Active Finasteride 5 MG Oral Tablet (Proscar) Take 1 Tablet by mouth in the morning. 90 Tablet 11/08/19 24 Active BD Pen Needle Short U/F 31G X 8 MM (Insulin Pen Needle)Indications :Type 2 diabetes mellitus with hemoglobin A1c goal of less than 8.0% (HCC) Use with Lantus twice daily Dx E11.9 200 Each 11/08/19 24 Active traMADol HCl 50 MG Oral Tablet (Ultram)Indication s:Primary osteoarthritis of both knees Take 1 Tablet by mouth 3 times a day as needed (pain). Take up to 3 times daily with 500mg or 1000mg of Acetaminophen as directed. 90 Tablet 11/25/19 24 Active Insulin Glargine Solostar 100 UNIT/ML Subcutaneous Solution Pen-injector (Lantus SoloStar)Indicatio ns:Type 2 diabetes mellitus with hemoglobin A1c goal of less than 8.0% (HCC) Inject a total of 80 units under in two separate injections of 40 units or as directed by MTM 90 mL 12/06/19 24 Active Dabigatran Etexilate Mesylate 150 MG Oral Capsule (Pradaxa)Indicatio ns:History of cardioversion,Atri al fibrillation, unspecified type (HCC) TAKE 1 CAP BY MOUTH IN THE MORNING AND 1 CAP BEFORE BEDTIME. CAP MUST BE SWALLOWED WHOLE; DO NOT CHEW, CRUSH OR OPEN CAP 180 Capsule 12/14/19 24 Active metFORMIN HCl ER 500 MG Oral Tablet Extended Release 24 Hour (Glucophage XR)Indications:Typ e 2 diabetes mellitus with hemoglobin A1c goal of less than 8.0% (HCC) Take 3 tablets by mouth daily with a meal 270 Tablet 01/11/20 24 Active OneTouch Ultra In Vitro Strip (Glucose Blood) Test up to 4 times daily or as directed e11.9 400 Strip 01/11/20 Active OneTouch Ultra Blue In Vitro Strip (Glucose Blood)Indications: Type 2 diabetes mellitus with hemoglobin A1c goal of less than 8.0% (HCC) Test up to 4 times daily or as directed e11.9 400 Strip 3 01/07/20 22 024 Discontinued metFORMIN HCl ER 500 MG Oral Tablet Extended Release 24 Hour (Glucophage XR)Indications:Typ e 2 diabetes mellitus with hemoglobin A1c goal of less than 8.0% (HCC) Take 3 tablets by mouth daily with a meal 270 Tablet 1 06/29/19 24 024 Discontinued(Re fill) documented as of this encounter (statuses as of 01/11/2024) Active Problems Problem Noted Date Diagnosed Date Chronic obstructive pulmonary disease 10/20/2022 Chronic atrial fibrillation 07/08/2019 Type 2 diabetes mellitus wit h diabetic nephropathy, with long-term current use of insulin 12/31/2018 Morbid obesity with BMI of 50.0-59.9, adult 09/25 Encounter for long-term (current) use of medicat ions 10/10/2017 MEDICATION USE AGREEMENT 07/03/2017 Overview: 07/03/17 Paroxysmal atrial fibrillation 04/10/2017 ROGER on CPAP 04/10/2017 Dyslipidemia, goal LDL below 70 08/21/2016 Diabetic polyneuropathy asso ciated with type 2 diabetes mellitus 04/05/2016 Essential hypertension with goal blood pressure less than 140/90 04/05/2016 Gouty arthropathy 04/28/2015 BPH with obstruction/lower urinary tract symptom s 04/28/2015 Type 2 diabetes mellitus wit h hemoglobin A1c goal of less than 8.0% 07/04/2013 Overview: ICD-10 update of inactive term Allergic rhinitis 02/13/2013 Sedentary lifestyle 09/25/2011 Esophageal reflux 11/14/2005 Venous insufficiency documented as of this encounter (statuses as of 01/11/2024) Resolved Problems Problem Noted Date Diagnosed Date Resolved Date BMI 50.0-59.9, adult 04/10/2017 018 Overview: bmi= 53.08 04/10/17 Body mass index (BMI) of 50. 0 to 59.9 in adult 02/26/2017 04/10/2017 Overview: Per Obesity protocol #1 Morbid obesity 10/31/2016 03/01/2017 Overview: Per Obesity protocol #1 Adult BMI 50.0-59.9 kg/sq m 04/05/2016 10/04/2016 Overview: bmi= 53.98 04/05/16 Viral URI with cough 07/05/2015 017 Adult body mass index 50.0-59.9 10/21/2014 10/04/2016 Overview: bmi= 53.50 10/21/14 HTN, goal below 140/90 08/26/201404/05 Diabetic polyneuropathy 01/29/201401/2016 Obesity, morbid (more than 1 00 lbs over ideal weight or BMI > 40) 12/19/2013 10/04/2016 Overview: bmi= 53.99 12/19/13 Foot drop, right 12/19/2013 11/30/2016 Screen for colon cancer 12/08/201309/25 Urinary incontinence 10/13/2013 017 HTN, goal below 140/80 07/08/201308/26 Obesity, morbid (more than 1 00 lbs over ideal weight or BMI > 40) 04/15/2013 10/04/2016 Overview: bmi= 56.64 04/15/13 Routine medical exam 04/15/2013 017 Right cornea abrasion 02/13/20132016 Acute URI 02/13/2013 10/04/2016 DJD (degenerative joint disease) of knee 09/25/2012 04/28/2015 DJD (degenerative joint disease) of knee 07/17/2012 10/04/2016 Hand arthritis 07/17/2012 10/04/2016 Type 2 diabetes mellitus wit h hemoglobin A1c goal of 7.0%-8.0% 06/25/2012 07/04/2013 Overview: ICD-10 update of inactive term Obesity, morbid (more than 1 00 lbs over ideal weight or BMI > 40) 04/09/2012 10/04/2016 Overview: BMI= 56.26 04/09/12 Cough 04/09/2012 10/04/2016 Sleep apnea 03/27/2012 04/10/2017 Gout 03/27/2012 04/28/2015 HTN, goal below 130/80 03/27/201207/08 Routine medical exam 03/27/2012 017 Need for shingles vaccine 03/27/2012 Special screening for malign ant neoplasm of prostate 03/27/2012 10/04/2016 HTN, goal below 140/80 01/15/201203/27 Overview: Per HTN Protocol #27. Generalized osteoarthritis 12/26/2011 0 10/04/2016 Obesity, morbid (more than 1 00 lbs over ideal weight or BMI > 40) 09/25/2011 10/04/2016 Overview: bmi= 55.85 09/25/11 MORBID OBESITY, BMI= 52.00 03/21/11 03/21/2011 10/04/2016 MORBID OBESITY, BMI= 50.32 09/06/10 09/06/2010 10/04/2016 MORBID OBESITY, BMI= 49.16 08/23/10 08/23/2010 10/04/2016 Abdominal pain, right upper quadrant 04/12/2010 10/04/2016 Abdominal pain, right lower quadrant 04/05/2010 10/04/2016 Backache 04/05/2010 10/04/2016 Herpes zoster 04/05/2010 11/30/2016 Need for pneumococcal vaccination 04/05/2010 10/04/2016 MORBID OBESITY, BMI= 53.89 12/13/09 12/13/2009 10/04/2016 Screening for prostate cancer 12/13/2009 10/04/2016 Obesity, morbid (more than 1 00 lbs over ideal weight or BMI > 40) 08/24/2009 12/13/2009 Overview: Per Obesity Taxonomy ICD-10 update of inactive term Obesity, morbid (more than 1 00 lbs over ideal weight or BMI > 40) 08/24/2009 12/13/2009 Overview: Per Obesity Taxonomy ICD-10 update of inactive term DM type 2, not at goal 06/18/200906/25 HTN, goal below 130/80 06/02/200901/17 Sebaceous cyst 06/02/2009 10/04/2016 Dyslipidemia, goal LDL below 100 05/10/2009 08/23/2010 Overview: Per Lipid Taxonomy. Type 2 diabetes mellitus wit h hemoglobin A1c goal of less than 7.0% 03/11/2009 03/21/2011 Overview: Modified per Diabetes protocol #14. ICD-10 update of inactive term Routine medical exam 12/29/2008 013 Special screening for malign ant neoplasms, colon 12/29/2008 02/18/2009 Overview: Modified by Screening Dx Protocol #6. Special screening for malign ant neoplasms, colon 08/18/2008 10/08/2008 Overview: Resolved per Screening Diagnosis Protocol #6 Acute URI 05/13/2008 08/18/2008 Acute laryngitis 05/13/2008 08/18/2008 Overview: ICD-10 update of inactive term Acute pharyngitis 05/13/2008 08/18/2008 Overweight (BMI 25.0-29.9) 05/13/2008 0 08/24/2009 Overview: Per Obesity Taxonomy Acute URI 10/02/2007 12/25/2007 Cough 10/02/2007 12/25/2007 Acute bronchitis, antibiotics not indicated 10/02/2007 12/25/2007 Need for influenza vaccination 04/01/2007 10/04/2016 Allergic rhinitis 04/01/2007 02/13/2013 HTN, goal below 140/90 06/02 Morbid obesity, BMI not known 08/24/2009 Overview: Per Obesity Taxonomy Sleep apnea 03/27/2012 Overview: Obstructive PURE HYPERCHOLESTEROLEM 04/27 Overview: Per Lipid Taxonomy. Other atopic dermatitis 09/25 Overview: ICD-10 update of inactive term Gout 03/27/2012 DM type 2, not at goal 03/11 Overview: Modified per Diabetes protocol #14. Benign neoplasm of colon Overview: adenomatous/repeat colonoscopyi n 5 yrs Dyslipidemia, goal LDL below 70 09/25/2011 Dyslipidemia, goal LDL below 100 08/21/2016 documented as of this encounter (statuses as of 01/11/2024) Immunizations Name Administration Dates Next Due COVID-19 mRNA, LNP-s, No Pre serve, 2-Dose Series (Pfizer) 08/05/2020,07/08/2020 H1N1 2009 Influenza, IM 06/02/2009 Pneumococcal Conjugate Vacc, 13 Valent (Prevnar) 04/10/2017 Pneumococcal Polysaccharide PPV23 (Pneumovax) 04/05/2016,03/09/2003 Seasonal Influenza, PF, 6 M & above, IM , (FluLaval or Fluzone) 07/08/2019,07/05/2018,04/10/2017 Seasonal Influenza, Quadriva lent Hd (Fluzone Hd) 04/25/2023,04/19/2022,02/11/2021 Seasonal Influenza, Quadriva lent, No Preserve, IM 04/05/2016,04/28/2015 Seasonal Influenza, Split, I IV3, With Preserve, Inj 04/21/2014,04/15/2013,03/27/2012,02/26,04/05/2010,06/02/2009,06/03/19 09(Deferred: Patient Refused),05/13/2008(Deferred: Patient Refused),11/16/1998 04/21/2015 TD - Tetanus/Diptheria (ADULT) 02/10/2004 TDAP (age 10 and older)(Boostrix) 12/21/2017 documented as of this encounter Social History Tobacco Use Types Packs/Day Years Used Date Smoking Tobacco: Never Smokeless Tobacco: Never Alcohol Use Standard Drinks/Week Comments No 0 (1 standard drink = 0.6 oz pur e alcohol) AUDIT-C Answer Date Recorded Frequency of Alcohol Consumption Never 05/13/2018 Average Number of Drinks Not on file 018 Frequency of Binge Drinking Not on file 04/27 PHQ-2 Answer Date Recorded PHQ Adult Total Score 0 02/11/2021 Hunger Vital Sign Answer Date Recorded Worried About Running Out of Food in the Last Ye ar Never true 07/08/2019 Ran Out of Food in the Last Year Never true 07/08/2019 Utilities Answer Date Recorded Do you have trouble paying y our heating, water, or electric bill? (Adult - for ages 18 years and over) Not on file 11/13/2023 Is your family able to pay t he heat, water, or electric bill? (Household - for ages 0-17 years) Not on file 11/13/2023 Does your family have access to good internet? (Household - for ages 0-17 years) Not on file 11/13/2023 Social Connections Answer Date Recorded How often do you feel lonely or isolated from those around you? (Adult - for ages 18 years and over) Not on file 11/13/2023 Sex and Gender Information Value Date Recorded Sex Assigned at Male 09/24/2018 1:04 PM EDT Gender Identity Male 09/24/2018 1:04 PM EDT Sexual Orientation Not on file Job Start Date Occupation Industry Not on file Not on file Not on file documented as of this encounter Miscellaneous Notes * Telephone Encounter - Celena Montelongo, take away man - 01/11/2024 1:40 PM EDT Pt also asking for OneTouch Ultra Blue In Vitro Strips, was unable to pend due to The medications or procedures for these orders are no longer available for ordering. Place new orders instead , please advise Did you pend patient's preferred pharmacy and medication before forwarding?yes Pharmacy: [facility] [place] Pending Prescriptions: Disp Refills metFORMIN HCl ER 500 MG Oral Tablet Exten*270 Ta*1 Sig: Take 3 tablets by mouth daily with a meal Last Visit: 10/25/2023 (in office), 08/24/2023 (telemedicine) Next Visit: 04/30/2024 If no future appointments scheduled, and last appointment is greater than a year ago, please schedule patient for a follow-up appointment Last date the medication was ordered: 06-29-23 Is this request for a controlled substance?No Urine Drug Screen:No results found for this or any previous visit. Patient Phone Numbers Labs: Lab Results Component Value Date/Time CREAT 0.8 10/08/2023 08:01 AM CREAT 0.9 06/23/2020 01:48 PM POTASSIUM 5.0 10/08/2023 08:01 AM POTASSIUM 4.7 06/23/2020 01:48 PM LDLCALC 38 10/08/2023 08:01 AM LDLCALC 58 06/23/2020 01:48 PM LDLDIRECT NOT APPLICABLE 06/23/2020 01:48 PM LDLDIRECT 72 10/08/2013 11:49 AM ALT 19 10/08/2023 08:01 AM ALT 31 06/23/2020 01:48 PM HGBA1C 7.8 (H) 10/08/2023 08:01 AM HGBA1C 8.1 (H) 06/20/2019 12:00 AM HGBA1C 8.0 (H) 07/05/2018 02:24 PM documented in this encounter Plan of Treatment Upcoming Encounters Date Type Department Care Team (Late st Contact Info) Description 04/30/2024 1:30 PM EST Office Visit Pharmacy, [facility] [address] [place] [address] [facility] [address] [place] [address] 04/30/2024 2:00 PM EST Office Visit [facility] [address] [place] [id number] Dario Galloway MD [address] [place] [address] Scheduled Procedures Name Priority Associated Diagnoses Date/Ti me COLONOSCOPY FLEXIBLE PROXIMAL DIAGNOSTIC Recall History of colon polyps Health Maintenance Due Date Last Done Comments Alpha-1 Antitrypsin 1966 Hepatitis C Screening 1966 Zoster Vaccines (1 of 2) 1998 Adult Wellness Visit 09/25/2019 09/24/2018 Diabetic Eye Exam 07/09/2020 07/09/2019, , 05/30/2017, Additional history exists Depression Screening 02/11/2022 02/11/2021, 04/10/2017, 10/21/2014 *COPD SEVERITY VERIFIED BY PFT 10/23/2022 COVID-19 Vaccine ( season) 2023 08/05/2020, 07/08/2020 Colonoscopy 01/03/2024 01/02/2019, 11/25, 12/15/2008 Influenza Vaccine (FLU shot) (#1) 2024 04/25/2023, 04/19/2022, 02/11/2021, Additional history exists HbA1c 04/09/2024 10/08/2023, 02/0 06/2023, 02/16/2023, Additional history exists Albumin/Creatinine Ratio 10/07/2024 024, 08/14/2022, 08/12/2021, Additional history exists B-12 10/07/2024 10/08/2023, /01/2021, 02/11/2018 GFR 10/07/2024 10/08/2023, 02/0 06/2023, 08/04/2022, Additional history exists Diabetic Foot Exam 10/24/2024 10/25/2023, 0 02/11/2021, 05/04/2020, Additional history exists O2 ASSESSMENT COMPLETED IN PAST YEAR FOR COPD 10/24/2024 10/25/2023 DTaP,Tdap,and Td Vaccines (2 - Td or Tdap) 12/22/2027 12/21/2017, 02/10/2004 Pneumococcal Vaccine: 65+ Years Completed 04/10/2017, 04/05/2016, 03/09/2003 RETIRED - COLONOSCOPY-EVERY 5 YRS AGES 18-100 Discontinued 01/02/2019, 12/12/2013, 12/15/2008 HPV (Gardasil) Vaccine Aged Out No lo nger eligible based on patient's age to complete this topic Hepatitis B Vaccine Aged Out No longe r eligible based on patient's age to complete this topic MENINGOCOCCAL (MENACTRA/MENVEO) Aged Out No longer eligible based on patient's age to complete this topic documented as of this encounter Medical Devices Not on filedocumented as of this encounter Visit Diagnoses Diagnosis Type 2 diabetes mellitus with hemoglobin A1c goal of less than 8.0% ([facility]) documented in this encounter Care Teams Sld Inclusion Teacher Relationship Specialty Start Date End Date Dario Galloway MD [address] [place] [address] PCP - General Family Medicine 08/12/18 documented as of this encounter
--- NOTE | 2024-01-17 10:09 | Pre Anesthesia Assessment ---
Date of Service January 17, 2024 Pre Sedation Assessment Vital Signs Temp Pulse Pulse Resp BP BP Pulse Ox 01/17/24 08:04 77 117/77 01/17/24 07:58 73 18 97/64 L 96 01/17/24 06:59 72 01/17/24 03:04 67 18 97 01/16/24 23:17 86 01/16/24 23:00 36.4 C L 94 H 121/73 97 01/16/24 22:59 36.8 C 86 18 91/71 L 95 01/16/24 22:59 96 O2 Del Method 01/17/24 08:04 01/17/24 07:58 Room Air 01/17/24 06:59 01/17/24 03:04 Room Air 01/16/24 23:17 01/16/24 23:00 Room Air 01/16/24 22:59 Room Air 01/16/24 22:59 Room Air Cardiovascular + irregularly irregular + S1 normal and + S2 normal; no murmur + femoral pulses present and + radial pulses present; no JVD + edema Respiratory no respiratory distress and no retractions no crackles, no rales, no rhonchi and no wheezes Pre-Sedation Airway Assessment Smoking Status: Never smoker Mallampati Class: III ASA: ASA4 NPO Status Date of Last Intake of Fluids: 01/16/24 Date of Last Intake of Solid Food: 01/16/24 Procedure Planning Contraindications for Sedation: none Current Medications Reviewed: Yes Notes The planned sedation has been discussed with the patient. Informed Consent was obtained. I have identified the patient, determined the appropriateness of sedation and have assessed the patient immediately prior to the procedure. All medicine(s) and interventions are by my order.
--- OUTSIDE RECORDS SUMMARY | 2024-01-17 10:09 | External Medical Summary | Summary of Care ---
Author Name Unknown Organization [facility] Address [address] [place] [address] Phone [phone] Care Team Providers Care Catering Associate Name Role Phone Dario Galloway MD Primary Care Provider [phone] Reason for Visit * Reason Comments Dosage Adjustment In Person (Anticoag Cl inic) Diabetes Follow-Up Encounter Details Date Type Department Care Team (Late st Contact Info) Description 12/12/2023 1:00 PM EDT Office Visit Pharmacy, [address] [facility] [place] [address] Type 2 diabetes mellitus with hemoglobin A1c goal of less than 8.0% (FORMERLY [facility])* Allergies Active Allergy Reactions Criticality Noted Date Comments Sulfa Antibiotics Nausea/vomiting 11/14/2005 documented as of this encounter (statuses as of 12/12/2023) Medications Medication Sig Dispensed Refills Start Date End Date Status OCEAN NASAL SPRAY 0.65 % NA SOLNIndications:Chr onic rhinitis Two sprays in each nostril as needed for nasal dryness or congestion 1 Bottle 5 04/09/2012 Active ONETOUCH ULTRA SYSTEM W/DEVICE KITIndications:DM type 2, goal A1c below 7 Use up to four times a day as directed 1 Kit 0 10/11/2012 Active albuterol (VENTOLIN HFA) 108 (90 BASE) MCG/ACT inhalerIndications: Chronic rhinitis, unspecified type Inhale 2 Puffs by mouth 4 times a day as needed for Cough or Wheezing. 3 Inhaler 3 07/03/2017 Active zoster vac recomb adjuvanted (SHINGRIX) 50 MCG injectionIndication s:Need for shingles vaccine Inject 0.5 mL into a large muscle now and repeat dose in 60 to 180 days 1 Each 1 12/21/2017 Active Additional Information Patient not taking.Reported on 10/25/2023 Blood Glucose Monitoring Suppl (BriggoUCH ULTRA 2) w/Device KITIndications:Type 2 diabetes mellitus with hemoglobin A1c goal of less than 8.0% (HCC) Test up to 4 times daily or as directed 1 Kit 04/14/2019 Active zoster vac recomb adjuvanted (SHINGRIX) 50 MCG/0.5ML injectionIndication s:Need for shingles vaccine,Encounter for long-term (current) use of medications Inject 0.5 mL into a large muscle now and repeat dose in 60 to 180 days 1 Each 1 07/08/2019 Active Additional Information Patient not taking.Reported on 10/25/2023 BriggoUCH DELICA LANCETS 33G MISC Use to test blood sugar 4 times per day. 400 Each 3 07/18/2019 Active Ipratropium [place] 0.06 % Nasal Solution (Atrovent)Indicatio ns:Vasomotor rhinitis Administer 2 Sprays into each nostril 4 times a day as needed for Rhinitis. 30 mL 5 02/11/2021 Active Ipratropium-Albuter ol 0.5-2.5 (3) MG/3ML Inhalation Solution (Duoneb)Indications :Bronchitis, complicated Inhale 3 mL via nebulizer 4 times a day. 120 mL 5 05/03/2021 Active Bumetanide 2 MG Oral Tablet Take by mouth 1 Tablet in the morning. 90 Tablet 1 08/11/2021 Active OneTouch Ultra Blue In Vitro Strip (Glucose Blood)Indications:T ype 2 diabetes mellitus with hemoglobin A1c goal of less than 8.0% (HCC) Test up to 4 times daily or as directed e11.9 400 Strip 3 01/06/2022 Active guaiFENesin-Codeine 100-10 MG/5ML Oral Syrup (Robitussin AC)Indications:Acut e maxillary sinusitis, recurrence not specified Take 5 mL by mouth every 4 hours as needed for Cough. 120 mL 1 04/25/2022 Active Benzonatate 100 MG Oral Capsule (Tessalon Perles)Indications: Bronchitis, complicated Take 1-2 Capsules by mouth 3 times a day as needed for Cough. Do not cut, crush, or chew. 50 Capsule 1 05/30/2022 Active amLODIPine Besylate 5 MG Oral Tablet (Norvasc) Take 1 Tablet by mouth in the morning. 90 Tablet 3 10/20/2022 Active Fluticasone Propionate 50 MCG/ACT Nasal Suspension (Flonase)Indication s:Seasonal allergic rhinitis, unspecified trigger Administer 2 Sprays into each nostril in the morning. 48 g 3 11/14/2022 Active Metoprolol Tartrate 25 MG Oral Tablet (Lopressor)Indicati ons:Paroxysmal atrial fibrillation (HCC) Take 1 Tablet by mouth in the morning and 1 Tablet at noon and 1 Tablet before bedtime. 270 Tablet 3 04/04/2023 Active Nitroglycerin 0.4 MG Sublingual Tablet Sublingual (Nitrostat)Indicati ons:Atrial fibrillation, unspecified type (HCC),History of cardioversion Place 1 Tablet under the tongue as needed for Pain, Chest. May repeat 3 times. If chest pain continues, call 911. 25 Tablet 5 04/25/2023 Active Dabigatran Etexilate Mesylate 150 MG Oral Capsule (Pradaxa)Indication s:History of cardioversion,Atria l fibrillation, unspecified type (HCC) TAKE 1 CAP BY MOUTH IN THE MORNING AND 1 CAP BEFORE BEDTIME. CAP MUST BE SWALLOWED WHOLE; DO NOT CHEW, CRUSH OR OPEN CAP 180 Capsule 1 06/07/2023 Active metFORMIN HCl ER 500 MG Oral Tablet Extended Release 24 Hour (Glucophage XR)Indications:Type 2 diabetes mellitus with hemoglobin A1c goal of less than 8.0% (HCC) Take 3 tablets by mouth daily with a meal 270 Tablet 1 06/29/2023 Active Allopurinol 300 MG Oral Tablet (Zyloprim) TAKE 1 TABLET BY MOUTH ONCE DAILY 90 Tablet 2 08/17/2023 Active Benzonatate 100 MG Oral CapsuleIndications: Viral upper respiratory tract infection Take 1 Capsule by mouth 3 times a day as needed for Cough. 30 Capsule 1 08/24/2023 Active Fosinopril Sodium 40 MG Oral Tablet (Monopril)Indicatio ns:Essential hypertension with goal blood pressure less than 140/90 Take 1 Tablet by mouth in the morning. 90 Tablet 1 09/10/2023 Active Ozempic (2 MG/DOSE) 8 MG/3ML Subcutaneous Solution Pen-injector (Semaglutide (2 MG/DOSE))Indication s:Type 2 diabetes mellitus with hemoglobin A1c goal of less than 8.0% (HCC) Inject 2mg under the skin once weekly 9 mL 3 09/07/2023 Active Tamsulosin HCl 0.4 MG Oral Capsule (Flomax)Indications :BPH with obstruction/lower urinary tract symptoms Take 1 Capsule by mouth in the morning. 90 Capsule 3 10/19/2023 Active amLODIPine Besylate 5 MG Oral Tablet (Norvasc)Indication s:Essential hypertension with goal blood pressure less than 140/90 Take 1 Tablet by mouth in the morning. 90 Tablet 3 10/19/2023 Active B-12 1000 MCG Oral TabletIndications:B 12 deficiency 1 tab 3 days per week 90 Tablet 3 10/25/2023 Active Atorvastatin Calcium 40 MG Oral Tablet (Lipitor)Indication s:Dyslipidemia, goal LDL below 70 Take 1 Tablet by mouth every night at bedtime. 90 Tablet 3 11/08/2023 Active Finasteride 5 MG Oral Tablet (Proscar) Take 1 Tablet by mouth in the morning. 90 Tablet 1 11/08/2023 Active BD Pen Needle Short U/F 31G X 8 MM (Insulin Pen Needle)Indications: Type 2 diabetes mellitus with hemoglobin A1c goal of less than 8.0% (HCC) Use with Lantus twice daily Dx E11.9 200 Each 3 11/08/2023 Active traMADol HCl 50 MG Oral Tablet (Ultram)Indications :Primary osteoarthritis of both knees Take 1 Tablet by mouth 3 times a day as needed (pain). Take up to 3 times daily with 500mg or 1000mg of Acetaminophen as directed. 90 Tablet 11/25/2023 Active Insulin Glargine Solostar 100 UNIT/ML Subcutaneous Solution Pen-injector (Lantus SoloStar)Indication s:Type 2 diabetes mellitus with hemoglobin A1c goal of less than 8.0% (HCC) Inject a total of 80 units under in two separate injections of 40 units or as directed by MTM 90 mL 1 12/06/2023 Active documented as of this encounter (statuses as of 12/12/2023) Active Problems Problem Noted Date Diagnosed Date [...] as of this encounter (statuses as of 12/12/2023) Resolved Problems Problem Noted Date Diagnosed Date [...] as of this encounter (statuses as of 12/12/2023) Immunizations Name Administration Dates Next Due COVID-19 [...] on file documented as of this encounter Progress Notes * Elo Hebert, [facility] - 12/12/2023 12:58 PM EDT Images from the original note were not included. Medication Therapy Disease Management Clinic - Diabetes Management Progress Note Randall Elam, identified by name and date of , is a 73 year old male being seen for diabetes management/education. Patient presents for return diabetic visit. DIABETES: Current diabetic medications: Metformin XR 500mg, 3 tablets daily Ozempic, Inject 2mg under the skin once weekly Lantus 80 units a day (taking as two separate injections at same time) GFR 85 mL/min as of 08/04/22 Medication Injection Site: Abdomen Lifestyle: Diet: unchanged Glucose Review/SMBG: Readings obtained from patient device Hypoglycemia: Does your blood sugar go below 70 mg/dL? No Hyperglycemia symptoms present: none Recent Labs Units 10/08/23 0801 06/29/23 1448 02/16/23 1002 HEMOGLOBIN A1C - [facility] % 7.8* 9.1* 7.8* Recent Labs Units 10/08/23 0801 06/29/23 1448 08/04/22 1124 ESTIMATED GLOMERULAR FILTRATION RATE - [facility] mL/min >90 >90 85 CREATININE - [facility] mg/dL 0.8 0.8 0.9 HYPERTENSION: Patient on ACEi/ARB: yes BP Readings from Last 3 Encounters: 10/25/23 120/78 04/25/23 102/84 10/20/22 102/60 Blood pressure at goal: yes HYPERLIPIDEMIA: Patient is taking moderate or high intensity statin: yes HEALTH MAINTENANCE REVIEW: Health Maintenance Due Topic Date Due Alpha-1 Antitrypsin Never done Hepatitis C Screening Never done Zoster Vaccines (1 of 2) Never done Diabetic Eye Exam 07/09/2020 Depression Screening 02/11/2022 *COPD SEVERITY VERIFIED BY PFT Never done COVID-19 Vaccine ( season) 2023 *CXR OR CT FOR COPD EVER Never done Colonoscopy 01/03/2024 ASSESSMENT & PLAN: ICD-10-CM 1. Type 2 diabetes mellitus with hemoglobin A1c goal of less than 8.0% ([facility]) E11.9 Considerations: - Jardiance caused unwanted increased urination - Metformin dose limited by tolerability - Freestyle Christin 2 supplied via [employer] [phone] Readings - Blood sugars reasonably controlled. Reviewed christin download with patient. Average 203. No low blood sugars. Medications - Reviewed current regimen, patient is adherent to regimen. Tolerating well. Did offer to upgrade to christin 3, but for now continue all medications. No changes warranted Diet, Exercise, Lifestyle - No significant lifestyle changes since last visit. Discussed with patient that as the colder months come, it is even more important to be mindful of the amount of veggies etc in diet.. Patient is agreeable to SMBG christin 2 daily. Patient aware to contact clinic if any hypoglycemia before next visit. MEDICATION CHANGES: no change Diabetic Medications: Metformin XR 500mg, 3 tablets daily Ozempic, Inject 2mg under the skin once weekly Lantus 80 units a day (taking as two separate injections at same time) GFR 85 mL/min as of 08/04/22 HEALTH MAINTENANCE INTERVENTIONS: Labs: Ordered & Scheduled: HgA1c Immunizations: Up to Date Foot Exam: Up to Date Eye Exam: due Annual Wellness Visit: Up to Date FOLLOW UP: Return to clinic in 6 months 04/30/2024 Elo Hebert RPh Clinical Pharmacist - [employer] Medication Therapy Management Clinic 12/12/2023, 12:58 PM documented in this encounter Plan of Treatment Upcoming Encounters Date Type Department Care Team (Late st Contact Info) Description 04/30/2024 1:30 PM EST Office Visit Pharmacy, [facility] [address] [place] [address] [facility] [address] [place] [facility] [place] [facility] [place] [address] 04/30/2024 2:00 PM EST Office Visit Family Practice, [facility] [address] [place] [facility] [place] [phone] Dario Galloway MD [address] [place] [facility] [place] [address] Scheduled Orders Name Type Priority Associated Diagnoses Orde r Schedule HEMOGLOBIN A1C Lab Routine Type 2 diabetes mellitus with hemoglobin A1c goal of less than 8.0% (HCC) Expected: 04/23/2024 (Approximate), Expires: 12/11/2024 Scheduled Procedures Name Priority Associated Diagnoses Date/Ti me COLONOSCOPY FLEXIBLE PROXIMAL DIAGNOSTIC Recall History of colon polyps Health Maintenance Due Date Last Done Comments Alpha-1 Antitrypsin 1966 Hepatitis C Screening 1966 Zoster Vaccines (1 of 2) 1998 Diabetic Eye Exam 07/09/2020 07/09/2019, , 05/30/2017, Additional history exists Depression Screening 02/11/2022 02/11/2021, 04/10/2017, 10/21/2014 *COPD SEVERITY VERIFIED BY PFT 10/23/2022 COVID-19 Vaccine ( season) 2023 08/05/2020, 07/08/2020 *CXR OR CT FOR COPD EVER 12/09/2023 Colonoscopy 01/03/2024 01/02/2019, 11/25, 12/15/2008 Influenza Vaccine (FLU shot) (#1) 2024 04/25/2023, 04/19/2022, 02/11/2021, Additional history exists HbA1c 04/09/2024 10/08/2023, 02/06/2023, 02/16/2023, Additional history exists Albumin/Creatinine Ratio 10/07/2024 024, 08/14/2022, 08/12/2021, Additional history exists B-12 10/07/2024 10/08/2023, 11/25, 02/11/2018 GFR 10/07/2024 10/08/2023, 02/0 06/2023, 08/04/2022, [...] hemoglobin A1c goal of less than 8.0% (HCC)- Primary documented in this encounter Care Teams Catering Associate Relationship Specialty Start Date End Date Dario Galloway MD [address] [place] [address] PCP - General Family Medicine 08/12/18 documented as of this encounter
--- OUTSIDE RECORDS SUMMARY | 2024-01-17 10:09 | External Medical Summary | Summary of Care ---
Author Name Unknown Organization [facility] Address [address] [place] [address] Phone [phone] Care Team Providers Care Technical Mgr Name Role Phone Dario Galloway MD Primary Care Provider [phone] Reason for Visit * Reason Onset Date Comments Med Request 12/06/2023 Encounter Details Date Type Department Care Team (Late st Contact Info) Description 12/06/2023 Telephone Pharmacy, [address] [address] Bala Gallego, [facility] [address], [place] [id number] Med Request Allergies Active Allergy Reactions Criticality Noted Date Comments Sulfa Antibiotics Nausea/vomiting 11/14/2005 documented as of this encounter (statuses as of 12/06/2023) Medications Medication Sig Dispensed Refills Start Date End Date Status OCEAN NASAL SPRAY 0.65 % NA SOLNIndications:Chr onic rhinitis Two sprays in each nostril as needed for nasal dryness or congestion 1 Bottle 5 2 Active ONETOUCH ULTRA SYSTEM W/DEVICE KITIndications:DM type 2, goal A1c below 7 Use up to four times a day as directed 1 Kit 0 3 Active albuterol (VENTOLIN HFA) 108 (90 BASE) MCG/ACT inhalerIndications: Chronic rhinitis, unspecified type Inhale 2 Puffs by mouth 4 times a day as needed for Cough or Wheezing. 3 Inhaler 3 8 Active zoster vac recomb adjuvanted (SHINGRIX) 50 MCG injectionIndication s:Need for shingles vaccine Inject 0.5 mL into a large muscle now and repeat dose in 60 to 180 days 1 Each 1 8 Active Additional Information Patient not taking.Reported on 10/25/2023 Blood Glucose Monitoring Suppl (Skymet Weather ServicesTOUCH ULTRA 2) w/Device KITIndications:Type 2 diabetes mellitus with hemoglobin A1c goal of less than 8.0% (HCC) Test up to 4 times daily or as directed 1 Kit 9 Active zoster vac recomb adjuvanted (SHINGRIX) 50 MCG/0.5ML injectionIndication s:Need for shingles vaccine,Encounter for long-term (current) use of medications Inject 0.5 mL into a large muscle now and repeat dose in 60 to 180 days 1 Each 1 0 Active Additional Information Patient not taking.Reported on 10/25/2023 Sk[employer] Weather ServicesTOUCH DELICA LANCETS 33G MIS Use to test blood sugar 4 times per day. 400 Each 3 0 Active Ipratropium [place] 0.06 % Nasal Solution (Atrovent)Indicatio ns:Vasomotor rhinitis Administer 2 Sprays into each nostril 4 times a day as needed for Rhinitis. 30 mL 5 1 Active Ipratropium-Albuter ol 0.5-2.5 (3) MG/3ML Inhalation Solution (Duoneb)Indications :Bronchitis, complicated Inhale 3 mL via nebulizer 4 times a day. 120 mL 5 1 Active Bumetanide 2 MG Oral Tablet Take by mouth 1 Tablet in the morning. 90 Tablet 1 2 Active OneTouch Ultra Blue In Vitro Strip (Glucose Blood)Indications:T ype 2 diabetes mellitus with hemoglobin A1c goal of less than 8.0% (HCC) Test up to 4 times daily or as directed e11.9 400 Strip 3 2 Active guaiFENesin-Codeine 100-10 MG/5ML Oral Syrup (Robitussin AC)Indications:Acut e maxillary sinusitis, recurrence not specified Take 5 mL by mouth every 4 hours as needed for Cough. 120 mL 1 11/29/202 2 Active Benzonatate 100 MG Oral Capsule (Tessalon Perles)Indications: Bronchitis, complicated Take 1-2 Capsules by mouth 3 times a day as needed for Cough. Do not cut, crush, or chew. 50 Capsule 1 3 Active amLODIPine Besylate 5 MG Oral Tablet (Norvasc) Take 1 Tablet by mouth in the morning. 90 Tablet 3 3 Active Fluticasone Propionate 50 MCG/ACT Nasal Suspension (Flonase)Indication s:Seasonal allergic rhinitis, unspecified trigger Administer 2 Sprays into each nostril in the morning. 48 g 3 3 Active Metoprolol Tartrate 25 MG Oral Tablet (Lopressor)Indicati ons:Paroxysmal atrial fibrillation (HCC) Take 1 Tablet by mouth in the morning and 1 Tablet at noon and 1 Tablet before bedtime. 270 Tablet 3 3 Active Nitroglycerin 0.4 MG Sublingual Tablet Sublingual (Nitrostat)Indicati ons:Atrial fibrillation, unspecified type (HCC),History of cardioversion Place 1 Tablet under the tongue as needed for Pain, Chest. May repeat 3 times. If chest pain continues, call 911. 25 Tablet 5 3 Active Dabigatran Etexilate Mesylate 150 MG Oral Capsule (Pradaxa)Indication s:History of cardioversion,Atria l fibrillation, unspecified type (HCC) TAKE 1 CAP BY MOUTH IN THE MORNING AND 1 CAP BEFORE BEDTIME. CAP MUST BE SWALLOWED WHOLE; DO NOT CHEW, CRUSH OR OPEN CAP 180 Capsule 1 4 Active metFORMIN HCl ER 500 MG Oral Tablet Extended Release 24 Hour (Glucophage XR)Indications:Type 2 diabetes mellitus with hemoglobin A1c goal of less than 8.0% (HCC) Take 3 tablets by mouth daily with a meal 270 Tablet 1 4 Active Allopurinol 300 MG Oral Tablet (Zyloprim) TAKE 1 TABLET BY MOUTH ONCE DAILY 90 Tablet 2 4 Active Benzonatate 100 MG Oral CapsuleIndications: Viral upper respiratory tract infection Take 1 Capsule by mouth 3 times a day as needed for Cough. 30 Capsule 1 4 Active Fosinopril Sodium 40 MG Oral Tablet (Monopril)Indicatio ns:Essential hypertension with goal blood pressure less than 140/90 Take 1 Tablet by mouth in the morning. 90 Tablet 1 4 Active Ozempic (2 MG/DOSE) 8 MG/3ML Subcutaneous Solution Pen-injector (Semaglutide (2 MG/DOSE))Indication s:Type 2 diabetes mellitus with hemoglobin A1c goal of less than 8.0% (HCC) Inject 2mg under the skin once weekly 9 mL 3 4 Active Tamsulosin HCl 0.4 MG Oral Capsule (Flomax)Indications :BPH with obstruction/lower urinary tract symptoms Take 1 Capsule by mouth in the morning. 90 Capsule 3 4 Active amLODIPine Besylate 5 MG Oral Tablet (Norvasc)Indication s:Essential hypertension with goal blood pressure less than 140/90 Take 1 Tablet by mouth in the morning. 90 Tablet 3 4 Active B-12 1000 MCG Oral TabletIndications:B 12 deficiency 1 tab 3 days per week 90 Tablet 3 4 Active Atorvastatin Calcium 40 MG Oral Tablet (Lipitor)Indication s:Dyslipidemia, goal LDL below 70 Take 1 Tablet by mouth every night at bedtime. 90 Tablet 3 4 Active Finasteride 5 MG Oral Tablet (Proscar) Take 1 Tablet by mouth in the morning. 90 Tablet 1 4 Active BD Pen Needle Short U/F 31G X 8 MM (Insulin Pen Needle)Indications: Type 2 diabetes mellitus with hemoglobin A1c goal of less than 8.0% (HCC) Use with Lantus twice daily Dx E11.9 200 Each 3 4 Active traMADol HCl 50 MG Oral Tablet (Ultram)Indications :Primary osteoarthritis of both knees Take 1 Tablet by mouth 3 times a day as needed (pain). Take up to 3 times daily with 500mg or 1000mg of Acetaminophen as directed. 90 Tablet 4 Active Insulin Glargine Solostar 100 UNIT/ML Subcutaneous Solution Pen-injector (Lantus SoloStar)Indication s:Type 2 diabetes mellitus with hemoglobin A1c goal of less than 8.0% (HCC) Inject a total of 80 units under in two separate injections of 40 units or as directed by MTM 90 mL 1 4 Active Insulin Glargine Solostar 100 UNIT/ML Subcutaneous Solution Pen-injector (Lantus SoloStar)Indication s:Type 2 diabetes mellitus with hemoglobin A1c goal of less than 8.0% ([facility]) Inject 45 units under the skin twice (in different locations on belly) once daily (90 units total) or as directed by MTM 90 mL 1 4 12/06/19 24 Discontinu ed(Refill) documented as of this encounter (statuses as of 12/06/2023) Active Problems Problem Noted Date Diagnosed Date [...] as of this encounter (statuses as of 12/06/2023) Resolved Problems Problem Noted Date Diagnosed Date Resolved Date BMI 50.0-59.9, adult 04/10/2017 05/ 018 Overview: bmi= 53.08 04/10/17 Body mass [...] as of this encounter (statuses as of 12/06/2023) Immunizations Name Administration Dates Next Due COVID-19 [...] encounter Miscellaneous Notes * Telephone Encounter - Elo Hebert RPh - 12/06/2023 10:42 AM EDT New script sent with clear instructions. Patient is actually only taking 80 units daily, still needs to be into two injections for absorption. Elo Hebert PharmD, BCACP Clinical Pharmacist Medication Therapy Disease Management 12/06/2023, 10:44 AM * Telephone Encounter - Epifanio Solis PHARM Tech - 12/06/2023 10:08 AM EDT Pharmacy is calling because pt's prescription for Lantus was sent with unclear directions stating "Inject 45 units under the skin twice (in different locations on belly) once daily (90 units total) or as directed by MTM, ". Please clarify the directions for this medication and send a new prescription to [facility] [facility] [place] . Should the pt be injecting 45 units twice daily for a total of 90 units or 90 units at one time. Sig is showing two sets of directions Epifanio Carmona CPht Record Center Coordinator [facility]ized [facility] 12/06/2023,10:09 AM documented in this encounter Plan of Treatment Upcoming Encounters Date Type Department Care Team (Late st Contact Info) Description 12/12/2023 1:00 PM EDT Office Visit Pharmacy, [place] [address] [place] [address] [facility] [address] [place] [address] 04/30/2024 2:00 PM EST Office Visit [facility], [place] [address] [place] [phone] Dario Galloway MD [address] [place], [place] [phone] Scheduled Procedures Name Priority Associated Diagnoses Date/Ti [...] 10/07/2024 10/08/2023, 11/25, 02/11/2018 GFR 10/07/2024 10/08/2023, 020 06/2023, 08/04/2022, Additional history exists Diabetic Foot [...] Primary documented in this encounter Care Teams Technical Mgr Relationship Specialty Start Date End Date Dario Galloway MD [address], [place] [id number] PCP - General Family Medicine 08/12/18 documented as of this encounter
--- OUTSIDE RECORDS SUMMARY | 2024-01-17 10:09 | External Medical Summary | Summary of Care ---
Author Name Unknown Organization [facility] Address [address] [place] [address] Phone [phone] Care Team Providers Care Siding Coreboard Inspector Name Role Phone Denis Galloway MD Primary Care Provider [phone] Reason for Referral * Medication Prior Authorization - Closed Specialty Diagnoses / Procedures Referred By Contac t Referred To Contact Diagnoses Primary osteoarthritis of both knees Denis Galloway MD [address] [place] [address] Referral ID Status Reason Start Date Expiration Date Visits Re quested Visits Authorized [id number] Closed 999 999 Reason for Visit * Reason Onset Date Comments Medication Refill 11/23/2023 Encounter Details Date Type Department Care Team (Late st Contact Info) Description 11/23/2023 Refill [facility] [address] [place] [address] Denis Galloway MD [address] [place] [address] Primary osteoarthritis of both knees Allergies Active Allergy Reactions Criticality Noted Date Comments Sulfa Antibiotics Nausea/vomiting 11/14/2005 documented as of this encounter (statuses as of 11/25/2023) Medications Medication Sig Dispensed Refills Start Date End Date Status OCEAN NASAL SPRAY 0.65 % NA SOLNIndications:Chr onic rhinitis Two sprays in each nostril as needed for nasal dryness or congestion 1 Bottle 5 2 Active IGAWorksTOUCH ULTRA SYSTEM W/DEVICE KITIndications:DM type 2, goal [...] taking.Reported on 10/25/2023 Blood Glucose Monitoring Suppl (PirqUCH ULTRA 2) w/Device KITIndications:Type 2 diabetes mellitus with hemoglobin A1c goal of less than 8.0% ([facility]) Test up to 4 times daily or as directed 1 Kit 9 Active zoster vac recomb adjuvanted (SHINGRIX) 50 MCG/0.5ML injectionIndication s:Need for shingles vaccine,Encounter for long-term (current) use of medications Inject 0.5 mL into a large muscle now and repeat dose in 60 to 180 days 1 Each 1 0 Active Additional Information Patient not taking.Reported on 10/25/2023 Gyft DELICA LANCETS 33G [facility] [place] [place] Use to test blood sugar 4 times per day. 400 Each 3 0 Active Ipratropium [place] 0.06 % Nasal Solution (Atrovent)Indicatio ns:Vasomotor rhinitis [...] as needed for Cough. 120 mL 1 2 Active Benzonatate 100 MG Oral Capsule [...] a meal 270 Tablet 1 4 Active Insulin Glargine Solostar 100 UNIT/ML Subcutaneous Solution Pen-injector (Lantus SoloStar)Indication s:Type 2 diabetes mellitus with hemoglobin A1c goal of less than 8.0% (HCC) Inject 45 units under the skin twice (in different locations on belly) once daily (90 units total) or as directed by MTM 90 mL 1 4 Active Allopurinol 300 MG Oral [...] Acetaminophen as directed. 90 Tablet 4 Active traMADol HCl 50 MG Oral Tablet (Ultram)Indications :Primary osteoarthritis of both knees Take 1 Tablet by mouth 3 times a day as needed (pain). Take up to 3 times daily with 500mg or 1000mg of Acetaminophen as directed. 90 Tablet 4 11/23/19 24 Discontinu ed(Refill) documented as of this encounter (statuses as of 11/25/2023) Active Problems Problem Noted Date Diagnosed Date [...] as of this encounter (statuses as of 11/25/2023) Resolved Problems Problem Noted Date Diagnosed Date [...] as of this encounter (statuses as of 11/25/2023) Immunizations Name Administration Dates Next Due COVID-19 mRNA, LNP-s, No Pre serve, 2-Dose Series ([employer]) 08/05/2020,07/08/2020 H1N1 2009 Influenza, IM 06/02/2009 Pneumococcal [...] encounter Miscellaneous Notes * Telephone Encounter - Denis Galloway MD - 11/25/2023 8:18 AM EDTSigned Prescriptions: Disp Refills traMADol HCl 50 MG Oral Tablet (Ultram) 90 Tab*0 Sig: Take 1 Tablet by mouth 3 times a day as needed (pain). Take up to 3 times daily with 500mg or 1000mg of Acetaminophen as directed. Authorizing Provider: DENIS GALLOWAY * Telephone Encounter - Ileana Jameson [facility] - 11/24/2023 8:54 AM EDTPending Prescriptions: Disp Refills traMADol HCl 50 MG Oral Tablet (Ultram) 90 Tab*0 Sig: Take 1 Tablet by mouth 3 times a day as needed (pain). Take up to 3 times daily with 500mg or 1000mg of Acetaminophen as directed. * Telephone Encounter - Ileana Jameson [facility] - 11/24/2023 8:52 AM EDT I have reviewed the patients controlled substance dispensing history in the Prescription Drug Monitoring Program in compliance with the [facility] regulations before prescribing a controlled substance. PDMP checked on 11/24/2023. Pending Prescriptions: Disp Refills traMADol HCl 50 MG Oral Tablet (Ultram) 90 Tab*0 Sig: Take 1 Tablet by mouth 3 times a day as needed (pain). Take up to 3 times daily with 500mg or 1000mg of Acetaminophen as directed. Last Visit: 10/25/2023 (in office), 08/24/2023 (telemedicine) Next Visit: 04/30/2024 Date medication was last filled: 10/07 Date medication is due for refill: 11/05 Pharmacy: [facility]- [place] Is this request for a controlled substance? Yes and Urine Drug Screen Not completed Toxicology results: No results found for this or any previous visit. Please approve if appropriate. Thank you, Ileana Jameson, PharmD Clinical Pharmacist [facility] ([facility]) [phone] 11/24/2023, 8:53 AM * Telephone Encounter - Trina Diaz [facility] - 11/23/2023 2:20 PM EDT Did you pend patient's preferred pharmacy and medication before forwarding?yes Pharmacy: [facility]- [place] Pending Prescriptions: Disp Refills traMADol HCl 50 MG Oral Tablet (Ultram) 90 Tab*0 Sig: Take 1 Tablet by mouth 3 times a day as needed (pain). Take up to 3 times daily with 500mg or 1000mg of Acetaminophen as directed. Last Visit: 10/25/2023 (in office), 08/24/2023 (telemedicine) Next Visit: 04/30/2024 If no future appointments scheduled, and last appointment is greater than a year ago, please schedule patient for a follow-up appointment Last date the medication was ordered: 10/02/23 Is this request for a controlled substance?Yes, What was the last refill date 10/02/23 w/ quantity 90 and dosage 50 and Urine Drug Screen Not completed Urine Drug Screen:No results found for this [...] 12/12/2023 1:00 PM EDT [facility] [place] [address] [facility] [address] [place] [address] [facility] [place] [phone] 04/30/2024 2:00 PM EST [facility] Visit [facility] [place] [address] [facility] [address] Denis Galloway MD [address] [facility] [place] [id number] Scheduled Procedures Name Priority Associated Diagnoses Date/Ti [...] 08/05/2020, 07/08/2020 Colonoscopy 01/03/2024 01/02/2019, 11/25, 12/15/2008 HbA1c 04/09/2024 10/08/2023, 0 06/2023, 02/16/2023, Additional history exists Albumin/Creatinine Ratio 10/07/2024 024, 08/14/2022, 08/12/2021, Additional history exists B-12 10/07/2024 10/08/2023, 11/25, 02/11/2018 GFR 10/07/2024 10/08/2023, 06/2023, 08/04/2022, Additional history exists Diabetic Foot Exam 10/24/2024 10/25/2023, 0 02/11/2021, 05/04/2020, Additional history exists O2 ASSESSMENT COMPLETED IN PAST YEAR FOR COPD 10/24/2024 10/25/2023 DTaP,Tdap,and Td Vaccines (2 - Td or Tdap) 12/22/2027 12/21/2017, 02/10/2004 Pneumococcal Vaccine: 65+ Years Completed 04/10/2017, 04/05/2016, 03/09/2003 RETIRED - COLONOSCOPY-EVERY 5 YRS AGES 18-100 Discontinued 01/02/2019, 12/12/2013, 12/15/2008 Influenza Vaccine (FLU shot) Completed 04/25/2023, 04/19/2022, 02/11/2021, Additional history exists GARDASIL-HPV IMMUNIZATION SERIES Aged Out No longer eligible based on patient's age to complete this topic Hepatitis B Aged Out No longer eligi ble based on patient's age to complete this topic MENINGOCOCCAL (MENACTRA/MENVEO) Aged Out No longer eligible based on patient's age to complete this topic documented as of this encounter Medical Devices Not on filedocumented as of this encounter Visit Diagnoses Diagnosis Primary osteoarthritis of both knees Primary localized osteoarthrosis, lower leg documented in this encounter Care Teams Siding Coreboard Inspector Relationship Specialty Start Date End Date Denis Galloway MD [address] [place] [address] PCP - General Family Medicine 08/12/18 documented as of this encounter
--- OUTSIDE RECORDS SUMMARY | 2024-01-17 10:09 | External Medical Summary | Summary of Care ---
Author Name Unknown Organization [facility] Address [address] [place] [address] Phone [phone] Care Team Providers Care Implementation Consultant Name Role Phone Denis Galloway MD Primary Care Provider [phone] Reason for Visit * Reason Onset Date Comments Medication Refill 10/19/2023 Encounter Details Date Type Department Care Team (Late st Contact Info) Description 10/19/2023 Refill [facility] [address] [place] [address] Denis Galloway MD [address] [place] [address] BPH with obstruction/lower urinary tract symptoms; Essential hypertension with goal blood pressure less than 140/90 Allergies Active Allergy Reactions Criticality Noted Date Comments Sulfa Antibiotics Nausea/vomiting 11/14/2005 documented as of this encounter (statuses as of 10/19/2023) Medications Medication Sig Dispensed Refills Start Date [...] 180 days 1 Each 1 8 Active Blood Glucose Monitoring Suppl (SabrixTOUCH ULTRA 2) w/Device KITIndications:Type 2 diabetes mellitus [...] 180 days 1 Each 1 0 Active ONETOUCH DELICA LANCETS 33G [facility] Use to test blood sugar 4 times per day. 400 Each 3 0 Active Ipratropium [place] 0.06 % Nasal Solution (Atrovent)Indicatio ns:Vasomotor rhinitis [...] or chew. 50 Capsule 1 3 Active BD Pen Needle Short U/F 31G X 8 MM (Insulin Pen Needle)Indications: Type 2 diabetes mellitus with hemoglobin A1c goal of less than 8.0% (HCC) Use with Lantus twice daily Dx E11.9 200 Each 3 3 Active Atorvastatin Calcium 40 MG Oral Tablet (Lipitor)Indication s:Dyslipidemia, goal LDL below 70 Take 1 Tablet by mouth every night at bedtime. 90 Tablet 3 3 Active amLODIPine Besylate 5 MG Oral [...] call 911. 25 Tablet 5 3 Active Finasteride 5 MG Oral Tablet (Proscar) Take 1 Tablet by mouth in the morning. 90 Tablet 1 3 Active Dabigatran Etexilate Mesylate 150 MG [...] once weekly 9 mL 3 4 Active traMADol HCl 50 MG Oral Tablet (Ultram)Indications :Primary osteoarthritis of both knees Take 1 Tablet by mouth 3 times a day as needed (pain). Take up to 3 times daily with 500mg or 1000mg of Acetaminophen as directed. 90 Tablet 4 Active Tamsulosin HCl 0.4 MG Oral Capsule (Flomax)Indications :BPH with obstruction/lower urinary tract symptoms Take 1 Capsule by mouth in the morning. 90 Capsule 3 4 Active amLODIPine Besylate 5 MG Oral Tablet (Norvasc)Indication s:Essential hypertension with goal blood pressure less than 140/90 Take 1 Tablet by mouth in the morning. 90 Tablet 3 4 Active Tamsulosin HCl 0.4 MG Oral Capsule (Flomax)Indications :BPH with obstruction/lower urinary tract symptoms Take 1 Capsule by mouth in the morning. 90 Capsule 3 3 10/19/19 24 Discontinu ed(Refill) amLODIPine Besylate 5 MG Oral Tablet (Norvasc)Indication s:Essential hypertension with goal blood pressure less than 140/90 Take 1 Tablet by mouth in the morning. 90 Tablet 3 3 10/19/19 Discontinu ed(Refill) documented as of this encounter (statuses as of 10/19/2023) Active Problems Problem Noted Date Diagnosed Date [...] as of this encounter (statuses as of 10/19/2023) Resolved Problems Problem Noted Date Diagnosed Date [...] as of this encounter (statuses as of 10/19/2023) Immunizations Name Administration Dates Next Due COVID-19 [...] in the Last Year Never true 07/08/2019 Sex and Gender Information Value Date Recorded Sex Assigned at Male 09/24/2018 1:04 PM EDT Gender Identity Male 09/24/2018 1:04 PM EDT Sexual Orientation Not on file Job Start Date Occupation Industry Not on file Not on file Not on file documented as of this encounter Miscellaneous Notes * Telephone Encounter - Audelia Johnson [facility] - 10/19/2023 6:32 PM EDT Signed Prescriptions: Disp Refills Tamsulosin HCl 0.4 MG Oral Capsule (Flomax)90 Cap*3 Sig: Take 1 Capsule by mouth in the morning.Authorizing Provider: DENIS GALLOWAY User: AUDELIA JOHNSON amLODIPine Besylate 5 MG Oral Tablet (Norv*90 Tab*3 Sig: Take 1 Tablet by mouth in the morning.Authorizing Provider: DENIS GALLOWAY User: AUDELIA JOHNSON * Telephone Encounter - Suzy Blackwell, wallpaper printer - 10/19/2023 9:45 AM EDT Did you pend patient's preferred pharmacy and medication before forwarding?yes Pharmacy: [facility] [place] Pending Prescriptions: Disp Refills Tamsulosin HCl 0.4 MG Oral Capsule (Floma*90 Cap*3 Sig: Take 1 Capsule by mouth in the morning. amLODIPine Besylate 5 MG Oral Tablet (Nor*90 Tab*3 Sig: Take 1 Tablet by mouth in the morning. Last Visit: 04/25/2023 (in office), 08/24/2023 (telemedicine) Next Visit: 10/25/2023 If no future appointments scheduled, and last appointment is greater than a year ago, please schedule patient for a follow-up appointment Last date the medication was ordered: 04/25/2023,11/03/2022 Is this request for a controlled substance?No [...] Care Team (Late st Contact Info) Description 10/25/2023 1:00 PM EDT [facility] [place] [address] [facility] [id number] Denis [facility] [address] [facility] [address] 11/08/2023 2:30 PM EDT [facility] [place] [address] [facility] [place] [address] [place] [facility] [address] [facility] [address] Scheduled Procedures Name Priority Associated Diagnoses Date/Ti me COLONOSCOPY FLEXIBLE PROXIMAL DIAGNOSTIC Recall History of colon polyps Health Maintenance Due Date Last Done Comments Alpha-1 Antitrypsin 1966 Hepatitis C Screening 1966 Zoster Vaccines (1 of 2) 1998 Diabetic Eye Exam 07/09/2020 07/09/2019, , 05/30/2017, Additional history exists Depression Screening 02/11/2022 02/11/2021, 04/10/2017, 10/21/2014 Diabetic Foot Exam 02/11/2022 02/11/2021, 1 07/05/2019, 07/08/2019, Additional history exists *COPD SEVERITY VERIFIED BY PFT 10/23/2022 COVID-19 Vaccine ( season) 2023 08/05/2020, 07/08/2020 Colonoscopy 01/03/2024 01/02/2019, 11/25, 12/15/2008 HbA1c 04/09/2024 10/08/2023, 020 06/2023, 02/16/2023, Additional history exists O2 ASSESSMENT COMPLETED IN PAST YEAR FOR COPD 04/25/2024 04/25/2023 Albumin/Creatinine Ratio 10/07/2024 024, 08/14/2022, 08/12/2021, Additional history exists B-12 10/07/2024 10/08/2023, 11/25, 02/11/2018 GFR 10/07/2024 10/08/2023, 02/0 06/2023, 08/04/2022, Additional history exists DTaP,Tdap,and Td Vaccines (2 - Td or [...] as of this encounter Visit Diagnoses Diagnosis BPH with obstruction/lower urinary tract symptoms Hypertrophy of prostate with urinary obstruction and other lower urinary tract symptoms (LUTS) Essential hypertension with goal blood pressure less than 140/90 documented in this encounter Care Teams Implementation Consultant Relationship Specialty Start Date End Date Denis Galloway MD [address] [place], [place] [phone] PCP - General Family Medicine 08/12/18 documented as of this encounter
--- OUTSIDE RECORDS SUMMARY | 2024-01-17 10:09 | External Medical Summary | Summary of Care ---
Author Name Unknown Organization [facility] Address [address] [place] [address] Phone [phone] Care Team Providers Care Slicing Machine Operator/Tender Name Role Phone Dario Galloway MD Primary Care Provider [phone] Reason for Visit * Reason Onset Date Comments MyCode Nonconsent - Not interested at this time 12/12/2023 Encounter Details Date Type Department Care Team (Late st Contact Info) Description 12/12/2023 Orders Only [facility] [address] [place] [address] Roslyn Turner CHRA MyCode Nonconsent Documentation Allergies Active Allergy Reactions Criticality Noted Date Comments Sulfa Antibiotics Nausea/vomiting 11/14/2005 documented as of this encounter (statuses as of 12/12/2023) Medications Medication Sig Dispensed Refills Start Date End Date Status OCEAN NASAL SPRAY 0.65 % NA SOLNIndications:Chr onic rhinitis Two sprays in each nostril as needed for nasal dryness or congestion 1 Bottle 5 04/09/2012 Active Lodo SoftwareTOUCH ULTRA SYSTEM W/DEVICE KITIndications:DM type 2, goal [...] taking.Reported on 10/25/2023 Blood Glucose Monitoring Suppl (ONETOUCH ULTRA 2) w/Device KITIndications:Type 2 diabetes mellitus [...] Additional Information Patient not taking.Reported on 10/25/2023 ONETOUCH DELICA LANCETS 33G MISC Use to test blood sugar 4 times per day. 400 Each 3 07/18/2019 Active Ipratropium [place] 0.06 % Nasal Solution (Atrovent)Indicatio ns:Vasomotor rhinitis [...] 04/25/2022 Active Benzonatate 100 MG Oral Capsule (Tessalroberto [place])Indications: Bronchitis, complicated Take 1-2 Capsules by mouth [...] mRNA, LNP-s, No Pre serve, 2-Dose Series ([employer]) 08/05/2020,07/08/2020 H1N1 2009 Influenza, IM 06/02/2009 [...] as of this encounter Progress Notes * Roslyn Turner CHRA - 12/12/2023 1:38 PM EDT MyCode Nonconsent Documentation Randall Pizano Tinawali was approached in the clinic regarding participation in the MyCode Project and did not consent. documented in this encounter Plan of Treatment Upcoming Encounters Date Type Department Care Team (Late st Contact Info) Description 04/30/2024 1:30 PM EST Office Visit Pharmacy, [place] [address] [place] [address] [facility] [address] [place] [address] 04/30/2024 2:00 PM EST Office Visit [facility] [address] [place] [address] Dario Galloway MD [address] [place] [address] Scheduled Procedures Name Priority Associated Diagnoses Date/Ti [...] Not on filedocumented as of this encounter Care Teams Slicing Machine Operator/Tender Relationship Specialty Start Date End Date Dario Galloway MD [address] [facility] [place] [phone] PCP - General Family Medicine 08/12/18 documented as of this encounter
--- OUTSIDE RECORDS SUMMARY | 2024-01-17 10:09 | External Medical Summary | Summary of Care ---
Author Name Unknown Organization [facility] Address [address] [place] [address] Phone [phone] Care Team Providers Care Aircraft Instrument Tester Name Role Phone Dario Galloway MD Primary Care Provider [phone] Reason for Visit * Reason Comments Follow Up Patient is here toda y for 6 month check upPatient states no concerns Encounter Details Date Type Department Care Team (Late st Contact Info) Description 10/25/2023 1:00 PM EDT Office Visit [facility] [address] [place] [address] Dario Galloway MD [address] [place] [address] Type 2 diabetes mellitus with diabetic nephropathy, with long-term current use of insulin ([facility]; Tooth abscess; B12 deficiency Allergies Active Allergy Reactions Criticality Noted Date Comments Sulfa Antibiotics Nausea/vomiting 11/14/2005 documented as of this encounter (statuses as of 11/30/2023) Medications Medication Sig Dispensed Refills Start Date End Date Status OCEAN NASAL SPRAY 0.65 % NA SOLNIndications:Chr onic rhinitis Two sprays in each nostril as needed for nasal dryness or congestion 1 Bottle 5 2 Active Mainstream Renewable PowerTOUCH ULTRA SYSTEM W/DEVICE KITIndications:DM type 2, goal [...] taking.Reported on 10/25/2023 Blood Glucose Monitoring Suppl (Mainstream Renewable PowerTOUCH ULTRA 2) w/Device KITIndications:Type 2 diabetes mellitus [...] Additional Information Patient not taking.Reported on 10/25/2023 Mainstream Renewable PowerTOUCH DELICA LANCETS 33G MIS Use to test blood sugar 4 times per day. 400 Each 3 0 Active Ipratropium [place] 0.06 % Nasal Solution (Atrovent)Indicatio ns:Vasomotor rhinitis [...] A1c goal of less than 8.0% ([facility]) Take 3 tablets by mouth daily with a meal 270 Tablet 1 4 Active Insulin Glargine Solostar 100 UNIT/ML Subcutaneous Solution Pen-injector (Lantus SoloStar)Indication s:Type 2 diabetes mellitus with hemoglobin A1c goal of less than 8.0% ([facility]) Inject 45 units under [...] per week 90 Tablet 3 4 Active BD Pen Needle Short U/F 31G X 8 MM (Insulin Pen Needle)Indications: Type 2 diabetes mellitus with hemoglobin A1c goal of less than 8.0% (HCC) Use with Lantus twice daily Dx E11.9 200 Each 3 3 11/07/19 24 Discontinue d(Refill) Atorvastatin Calcium 40 MG Oral Tablet (Lipitor)Indication s:Dyslipidemia, goal LDL below 70 Take 1 Tablet by mouth every night at bedtime. 90 Tablet 3 3 11/07/19 24 Discontinue d(Refill) Finasteride 5 MG Oral Tablet (Proscar) Take 1 Tablet by mouth in the morning. 90 Tablet 1 3 11/07/19 24 Discontinue d(Refill) traMADol HCl 50 MG Oral Tablet (Ultram)Indications :Primary osteoarthritis of both knees Take 1 Tablet by mouth 3 times a day as needed (pain). Take up to 3 times daily with 500mg or 1000mg of Acetaminophen as directed. 90 Tablet 4 11/23/19 24 Discontinue d(Refill) Amoxicillin 875 MG Oral TabletIndications:T ooth abscess Take 1 Tablet by mouth in the morning and 1 Tablet before bedtime. Do all this for 10 days. 20 Tablet 4 11/04/19 24 documented as of this encounter (statuses as of 11/30/2023) Active Problems Problem Noted Date Diagnosed Date [...] as of this encounter (statuses as of 11/30/2023) Resolved Problems Problem Noted Date Diagnosed Date Resolved Date BMI 50.0-59.9, adult 04/10/201710/10/ 018 Overview: bmi= 53.08 04/10/17 Body mass [...] as of this encounter (statuses as of 11/30/2023) Immunizations Name Administration Dates Next Due COVID-19 mRNA, LNP-s, No Pre serve, 2-Dose Series ([employer]) 08/05/2020,07/08/2020 H1N1 2009 Influenza, IM 06/02/2009 Pneumococcal [...] on file documented as of this encounter Last Filed Vital Signs Vital Sign Reading Time Taken Comments Blood Pressure 120/78 10/25/2023 1:05 PM EDT Pulse 90 10/25/2023 1:05 PM EDT Temperature 35.4 C (95.7 F) 10/25/2023 1:05 PM ED T Respiratory Rate 16 10/25/2023 1:05 PM EDT Oxygen Saturation 98% 10/25/2023 1:05 PM EDT Inhaled Oxygen Concentration - - Weight - - Height 180.3 cm (5' 11") 10/25/2023 1:05 PM EDT Body Mass Index - - documented in this encounter Patient Instructions * Patient Instructions* Santiago Singh Student - 10/25/2023 12:56 PM EDT Diabetes: Keeping Feet Healthy Inspect your feet every day for signs of a problem. Diabetes can damage nerves in your feet and cause neuropathy. This condition makes it hard for you to feel injuries or sore spots. Diabetes can also change blood flow, making it harder for small problems, like a blister, to heal properly. In fact, minor injuries can quickly become serious infections that send you to the hospital. Practice self-care to protect your feet and keep them healthy. Take Special Care Inspect your feet daily for problems such as redness, blisters, cracks, dry skin, or numbness. Use a mirror to see the bottoms of your feet. Or, ask for help. Manage your diabetes. Monitor and control your blood sugar. Take all your medications as prescribed. Avoid walking barefoot, even indoors. Wash your feet with warm water and mild soap. Dry well, especially between toes. Dont treat corns or calluses yourself. Talk to your doctor or aircraft refueller (a doctor who specializes in foot care) if you need assistance trimming your toenails. Use moisturizing cream or lotion if you have dry skin, but dont use it between toes. Dont use heating pads on your feet. If you have neuropathy, you could get a burn and not feel it. Stop smoking. Smoking restricts blood flow and can make it harder for wounds to heal. Have Regular Checkups Foot problems can develop quickly. So be sure to follow your healthcare teams schedule for regular checkups. During office visits, take off your shoes and socks as soon as you get in the exam room. Ask your healthcare provider to examine your feet for problems. This will make it easier to find and treat small skin irritations before they get worse. Regular checkups can also help keep track of the blood flow and feeling in your feet. If you have neuropathy, you may need to have checkups more often. Wear Proper Footwear Wearing proper footwear is very important. If areas of your feet have been damaged by too much pressure, your healthcare provider may recommend changing your footwear. In some cases, avoiding high heels or tight work boots may be all thats needed. Or, your healthcare provider may recommend special shoes or custom inserts. These help protect your feet and keep existing irritations from getting worse. If you need special footwear, ask your healthcare provider if you qualify for [facility] diabetic shoe program. Make Sure Shoes and Socks Fit Any pair of shoes--new or old--should feel comfortable as soon as you put them on. There shouldnt be any rubbing when you walk. Wear the right shoe for any activity. For instance, a running shoe is designed to keep your feet injury-free while jogging. Buy shoes at the end of the day, when your feet are larger. Make sure they provide support without feeling too loose. Make sure your socks fit, t oo. Wear soft, seamless, well-padded socks for activity. Cotton or microfiber socks are best to help to absorb sweat. To protect your feet, avoid shoes that are open-toed or open-heeled. If you have questions about what kinds of shoes and socks are best, talk to your healthcare team. Get Regular Exercise Regular exercise improves blood flow in your feet. It also increases foot strength and flexibility.Gentle exercises, like walking or riding a stationary bicycle, are best. You can also do special foot exercises. Just be sure to talk with your healthcare provider before starting any exercise program. Also mention if any exercise causes pain, redness, or other signs of foot problems. Note: If you have any kind of break in the skin of your foot or ankle, keep the area clean. Then call your doctor--especially if the area doesnt appear to be healing. [phone] [employer], [address] [place] [address], [place] [address]. All rights reserved. This information is not intended as a substitute for professional medical care. Always follow your healthcare professional's instructions. documented in this encounter Progress Notes * Dario Galloway MD - 10/25/2023 1:37 PM EDT Subjective: Randall Elam is a 73 year old male. Chief Complaint Patient presents with Follow Up Patient is here today for 6 month check up Patient states no concerns HPI: 73-year-old seen today as a six-month return visit. He also follows closely with MTM especially in regards to his diabetes. His past medical history notable for insulin-requiring type 2 diabetes. Last hemoglobin A1c showed significant improvement was down to 7.8. That has the same as it was 6 months ago but in between it had risen to 9.1. Does point out that he had a knee injection steroid about 2 weeks ago. He always see some rise in his blood sugars for about 10 days after his knee injections. Has not been on any regular schedule for the knee injections in has gone as long as 9 months but also as short as 3 months. He remains on Ozempic and metformin although that is maxed out for him at 1500 mg daily . He did not tolerate Jardiance due to urinary frequency. Um His biggest current complaint in really consistent complaint has been shortness of breath with activity. That being said been improvement in whether he will be outside more and more active. He has a history of atrial fibrillation in his on long-term anticoagulation Has a bad right upper molar in that is to be extracted in about 12 days time. Has not been on antibiotic. Patient Active Problem List Diagnosis Venous insufficiency Esophageal reflux Sedentary lifestyle Allergic rhinitis Type 2 diabetes mellitus with hemoglobin A1c goal of less than 8.0% ([facility]) Gouty arthropathy BPH with obstruction/lower urinary tract symptoms Diabetic polyneuropathy associated with type 2 diabetes mellitus ([facility]) Essential hypertension with goal blood pressure less than 140/90 Dyslipidemia, goal LDL below 70 Paroxysmal atrial fibrillation ([facility]) ROGER on CPAP MEDICATION USE AGREEMENT Morbid obesity with BMI of 50.0-59.9, adult ([facility]) Encounter for long-term (current) use of medications Type 2 diabetes mellitus with diabetic nephropathy, with long-term current use of insulin ([facility]) Chronic atrial fibrillation ([facility]) Chronic obstructive pulmonary disease ([facility]) Current Outpatient Medications Medication Sig Dispense Refill OCEAN NASAL SPRAY 0.65 % NA SOLN Two sprays in each nostril as needed for nasal dryness or congestion 1 Bottle 5 Mainstream Renewable PowerTOUCH ULTRA SYSTEM W/DEVICE KIT Use up to four times a day as directed 1 Kit 0 Blood Glucose Monitoring Suppl (ONETOUCH ULTRA 2) w/Device KIT Test up to 4 times daily or as directed 1 Kit 0 Mainstream Renewable PowerTOUCH DELICA LANCETS [address] [facility] Use to test blood sugar 4 times per day. 400 Each 3 Ipratropium [place] 0.06 % Nasal Solution (Atrovent) Administer 2 Sprays into each nostril 4 times a day as needed for Rhinitis. 30 mL 5 Ipratropium-Albuterol 0.5-2.5 (3) MG/3ML Inhalation Solution (Duoneb) Inhale 3 mL via nebulizer 4 times a day. 120 mL 5 Bumetanide 2 MG Oral Tablet Take by mouth 1 Tablet in the morning. 90 Tablet 1 OneTouch Ultra Blue In Vitro Strip (Glucose Blood) Test up to 4 times daily or as directed e11.9 400 Strip 3 guaiFENesin-Codeine 100-10 MG/5ML Oral Syrup (Robitussin AC) Take 5 mL by mouth every 4 hours as needed for Cough. 120 mL 1 Benzonatate 100 MG Oral Capsule (Tessalon Perles) Take 1-2 Capsules by mouth 3 times a day as needed for Cough. Do not cut, crush, or chew. 50 Capsule 1 BD Pen Needle Short U/F 31G X 8 MM (Insulin Pen Needle) Use with Lantus twice daily Dx E11.9 200 Each 3 Atorvastatin Calcium 40 MG Oral Tablet (Lipitor) Take 1 Tablet by mouth every night at bedtime. 90 Tablet 3 amLODIPine Besylate 5 MG Oral Tablet (Norvasc) Take 1 Tablet by mouth in the morning. 90 Tablet 3 Fluticasone Propionate 50 MCG/ACT Nasal Suspension (Flonase) Administer 2 Sprays into each nostril in the morning. 48 g 3 Metoprolol Tartrate 25 MG Oral Tablet (Lopressor) Take 1 Tablet by mouth in the morning and 1 Tablet at noon and 1 Tablet before bedtime. 270 Tablet 3 Nitroglycerin 0.4 MG Sublingual Tablet Sublingual (Nitrostat) Place 1 Tablet under the tongue as needed for Pain, Chest. May repeat 3 times. If chest pain continues, call 911. 25 Tablet 5 Finasteride 5 MG Oral Tablet (Proscar) Take 1 Tablet by mouth in the morning. 90 Tablet 1 Dabigatran Etexilate Mesylate 150 MG Oral Capsule (Pradaxa) TAKE 1 CAP BY MOUTH IN THE MORNING AND 1 CAP BEFORE BEDTIME. CAP MUST BE SWALLOWED WHOLE; DO NOT CHEW, CRUSH OR OPEN CAP 180 Capsule 1 metFORMIN HCl ER 500 MG Oral Tablet Extended Release 24 Hour (Glucophage XR) Take 3 tablets by mouth daily with a meal 270 Tablet 1 Insulin Glargine Solostar 100 UNIT/ML Subcutaneous Solution Pen-injector (Lantus SoloStar) Inject 45 units under the skin twice (in different locations on belly) once daily (90 units total) or as directed by MTM 90 mL 1 Allopurinol 300 MG Oral Tablet (Zyloprim) TAKE 1 TABLET BY MOUTH ONCE DAILY 90 Tablet 2 Benzonatate 100 MG Oral Capsule Take 1 Capsule by mouth 3 times a day as needed for Cough. 30 Capsule 1 Fosinopril Sodium 40 MG Oral Tablet (Monopril) Take 1 Tablet by mouth in the morning. 90 Tablet 1 Ozempic (2 MG/DOSE) 8 MG/3ML Subcutaneous Solution Pen-injector (Semaglutide (2 MG/DOSE)) Inject 2mg under the skin once weekly 9 mL 3 traMADol HCl 50 MG Oral Tablet (Ultram) Take 1 Tablet by mouth 3 times a day as needed (pain). Takeup to 3 times daily with 500mg or 1000mg of Acetaminophen as directed. 90 Tablet 0 Tamsulosin HCl 0.4 MG Oral Capsule (Flomax) Take 1 Capsule by mouth in the morning. 90 Capsule 3 amLODIPine Besylate 5 MG Oral Tablet (Norvasc) Take 1 Tablet by mouth in the morning. 90 Tablet 3 Amoxicillin 875 MG Oral Tablet Take 1 Tablet by mouth in the morning and 1 Tablet before bedtime. Do all this for 10 days. 20 Tablet 0 albuterol (VENTOLIN HFA) 108 (90 BASE) MCG/ACT inhaler Inhale 2 Puffs by mouth 4 times a day as needed for Cough or Wheezing. 3 Inhaler 3 zoster vac recomb adjuvanted (SHINGRIX) 50 MCG injection Inject 0.5 mL into a large muscle now and repeat dose in 60 to 180 days (Patient not taking: Reported on 10/25/2023) 1 Each 1 zoster vac recomb adjuvanted (SHINGRIX) 50 MCG/0.5ML injection Inject 0.5 mL into a large muscle now and repeat dose in 60 to 180 days (Patient not taking: Reported on 10/25/2023) 1 Each 1 No current facility-administered medications for this visit. Review of patient's allergies indicates: Allergen Reactions Sulfa Antibiotics Nausea/vomiting Objective: BP 120/78 | Pulse 90 | Temp 35.4 C (95.7 F) (Temporal Artery) | Resp 16 | Ht 1.803 m (5' 11") |SpO2 98% | BMI 53.42 kg/m | BSA 2.95 m Physical Exam: CONST: alert, pleasant, no acute distress HEAD: normocephalic, atraumatic NECK: supple, soft, no adenopathy EARS: canals normal, TMs normal NARES: clear Eyes - PERRLA, EOM'I OROPHARYNX: clear, no swelling or erythema, moist CV: regular rate and rhythm, no murmur CHEST: clear to auscultation bilaterally, no rales or wheezing ABD: soft, non tender, non distended, no masses or hepatosplenomegaly EXT: no edema, no joint swelling or deformities, NEURO: AAOx3, no gross focal deficits, cerebellar signs normal, affect appropriate MENTAL STATUS: no evidence of thought disorder, no delusional thought, no evidence of paranoia, thought is non-tangential. SKIN: no rash or significant lesions ASSESSMENT/PLAN: Type 2 diabetes mellitus with diabetic nephropathy, with long-term current use of insulin ([facility]) (Primary) - TELEMEDICINE DIABETIC EYE - DIABETES FOOT EXAM [facility] satisfied with a hemoglobin A1c of 7.8. No change in his regimen at this time. Tooth abscess - Amoxicillin 875 MG Oral Tablet; Take 1 Tablet by mouth in the morning and 1 Tablet before bedtime. Do all this for 10 days. In his most recent lab work this month his white count was slightly elevated just under 12 which may be related to his abscess tooth. In any regard, the white count is not associated with any other cell line deviations and I do not think any further evaluation necessary Routine health maintenance-I encouraged the patient to get RSV vaccine and flu shot in January [facility]. Low normal B12 in a patient who previously did have low B12. He is placed on oral B12 1000 mcg to use 1 tablet about 3 times a week. See again 6 months Dario Galloway MD * Santiago Singh MED ASSIST - 10/25/2023 12:56 PM EDT Images from the original note were not included. The importance of having a yearly diabetic eye exam has been discussed with patient. Order and/or Referral placed along with patient instructions. Provider made aware. Santiago Singh, Student Diabetic Retinopathy: Evaluating Your Eyes Diabetic retinopathy is a condition that happens when diabetes damages blood vessels in the rear ofthe eye. It can lead to vision loss. To help catch it early, have a complete dilated eye exam at least once a year. During the exam, the eye healthcare provider will review your medical history, examine your eyes, and check your vision. Women who are and have pre-existing type 1 or type 2 diabetes have an increased risk of retinopathy. Women with diabetes should have an eye exam before or in the first trimester. They should continue to be monitored every trimester and for 1 year after delivery, depending on the severity of the retinopathy. The retina is the light-sensitive part of the eye that allows you to see. High blood sugar can damage blood vessels of the retina and cause them to leak or bleed. This damage can lead to abnormal blood vessel growth. This condition is called diabetic retinopathy. You may not have symptoms early in the disease. Later, there may be floaters, blurred vision, or poor night vision. There may also be partial or complete vision loss. Early cases of diabetic retinopathy can be treated by carefully controlling blood sugar, blood pressure, and cholesterol. Surgery or laser treatments may help restore lost vision. Laser surgery can shrink abnormal blood vessels or close ones that are leaking. Medicines injected in the eye can help decrease swelling of the retina. Home care Take all medicines, including insulin or oral diabetic medicine, exactly as prescribed. Follow the diet advised by your healthcare provider. If you have high cholesterol, follow a low-fat, low-cholesterol diet. Monitor blood sugars as advised. Try to achieve your ideal weight. If you smoke, quit smoking. Tobacco use worsens the effect of diabetes on your blood vessels. If you have high blood pressure, consider buying an automatic blood pressure machine. These are available at most pharmacies. Use this to monitor your blood pressure. Report your blood pressure readings to your healthcare provider. Exercise regularly. Follow-up care Follow up with your healthcare provider, or as advised. You must have a complete eye exam at least once a year, more often if needed. Untreated diabetic retinopathy can lead to complete loss of vision. Occupational therapists can help you adapt to any vision loss you have, including learning techniques to safely administer insulin. When to seek medical advice Call your healthcare provider right away if any of these occur. Increasing blurriness or any sudden changes in your vision Sudden flashes of light inside your eye New floaters (small dots or strings that seem to be moving across your field of vision) Eye pain, redness, or discharge from your eyelid New dark spots appearing in your field of vision Halos around lights Dimness of vision Partial or complete loss of vision Women with diabetes should have a complete eye exam before becoming , or as soon as possible when they find out they are . Retinopathy sometimes worsens during . Your eye exam Your eye healthcare provider uses an eye chart and other tools to check your vision. Then he or sheexamines your eyes for signs of disease. You are given eye drops to widen (dilate) your pupils. Youmay have one or more of the following tests: Tonometry to measure fluid pressure inside the eye. Slit lamp exam to allow the healthcare provider to view the structures of your eye. Ultrasound to create an image of the eye using sound waves. Ultrasound may be used if blood is found in the clear gel that fills the eye (vitreous). Ocular coherence tomography (OCT) to create an image of the retina using light waves. This shows ifthere is fluid leaking into certain parts of the eye. It can also measure the thickness of the retina. Fluorescein angiography This test may be done to check the health of the inside lining of the eye (retina). It also checks the tiny blood vessels (capillaries) that carry blood to the retina. During the test: Photographs are taken of the retina. A dye is then injected into the bloodstream through the arm or hand. The dye travels to the capillaries in the eye. More photographs are taken of the retina. The dye causes the capillaries to stand out on the photographs. You may feel brief nausea during the procedure. For a few hours after the test, your skin, eyes, and urine may appear yellow. Talk with your healthcare provider for more information about this test. Date Last Reviewed: 10/27/201519996254-2085 [employer]. [address] [place] [address], [place] [address]. All rights reserved. This information is not intended as a substitute for professional medical care. Always follow your healthcare professional's instructions. Socks and Shoes Removed for Annual Diabetic Foot Screening documented in this encounter Nursing Notes * Santiago Singh Student - 10/25/2023 1:05 PM EDT The patient has been properly identified by confirmation of name and date of . Chief Complaint Patient presents with Follow Up Patient is here today for 6 month check up Patient states no concerns documented in this encounter Plan of Treatment Upcoming Encounters Date Type Department Care Team (Late st Contact Info) Description 12/12/2023 1:00 PM EDT Office Visit Pharmacy, [facility] [address] [place] [address] [facility] [address] [place] [address] 04/30/2024 2:00 PM EST Office Visit [facility] [place] [address] [place] [id number] Dario Galloway MD [address] [place] [address] Scheduled Procedures Name Priority Associated Diagnoses Date/Ti [...] 08/12/2021, Additional history exists B-12 10/07/2024 10/08/2023, 07/01/2021, 02/11/2018 GFR 10/07/2024 10/08/2023, 02/0 06/2023, 08/04/2022, [...] Diagnoses Diagnosis Type 2 diabetes mellitus with diabetic nephropathy, with long-term current use of insulin (HCC)- Primary Tooth abscess Periapical abscess without sinus B12 deficiency Other B-complex deficiencies documented in this encounter Care Teams Aircraft Instrument Tester Relationship Specialty Start Date End Date [facility]alloway [facility] [address] [facility] [place] [address] P[facility] - General Family Medicine 08/12/18 documented as of this encounter
--- OUTSIDE RECORDS SUMMARY | 2024-01-17 10:09 | External Medical Summary | Summary of Care ---
Author Name Unknown Organization [facility] Address [address] [place] [address] Phone [phone] Care Team Providers Care Pharmacists Name Role Phone Denis Galloway MD Primary Care Provider [phone] Reason for Visit * Reason Onset Date Comments Medication Refill 12/14/2023 Encounter Details Date Type Department Care Team (Late st Contact Info) Description 12/14/2023 Refill [facility] [place] [address] [place] [address] Denis Galloway MD [address] [place] [address] History of cardioversion; Atrial fibrillation, unspecified type (HCC) Allergies Active Allergy Reactions Criticality Noted Date Comments Sulfa Antibiotics Nausea/vomiting 11/14/2005 documented as of this encounter (statuses as of 12/14/2023) Medications Medication Sig Dispensed Refills Start Date [...] taking.Reported on 10/25/2023 Blood Glucose Monitoring Suppl (HOMETRAXTOUCH ULTRA 2) w/Device KITIndications:Type 2 diabetes mellitus [...] Additional Information Patient not taking.Reported on 10/25/2023 [employer] DELICA LANCETS 33G MISC Use to test blood sugar 4 times per day. 400 Each 3 0 Active Ipratropium [place] 0.06 % Nasal Solution (Atrovent)Indicatio ns:Vasomotor rhinitis [...] call 911. 25 Tablet 5 3 Active metFORMIN HCl ER 500 MG Oral [...] by MTM 90 mL 1 4 Active Dabigatran Etexilate Mesylate 150 MG Oral Capsule (Pradaxa)Indication s:History of cardioversion,Atria l fibrillation, unspecified type (HCC) TAKE 1 CAP BY MOUTH IN THE MORNING AND 1 CAP BEFORE BEDTIME. CAP MUST BE SWALLOWED WHOLE; DO NOT CHEW, CRUSH OR OPEN CAP 180 Capsule 1 4 Active Dabigatran Etexilate Mesylate 150 MG Oral Capsule (Pradaxa)Indication s:History of cardioversion,Atria l fibrillation, unspecified type (HCC) TAKE 1 CAP BY MOUTH IN THE MORNING AND 1 CAP BEFORE BEDTIME. CAP MUST BE SWALLOWED WHOLE; DO NOT CHEW, CRUSH OR OPEN CAP 180 Capsule 1 4 12/14/19 24 Discontinu ed(Refill) documented as of this encounter (statuses as of 12/14/2023) Active Problems Problem Noted Date Diagnosed Date [...] as of this encounter (statuses as of 12/14/2023) Resolved Problems Problem Noted Date Diagnosed Date [...] as of this encounter (statuses as of 12/14/2023) Immunizations Name Administration Dates Next Due COVID-19 [...] encounter Miscellaneous Notes * Telephone Encounter - Edwin Jordan RP - 12/14/2023 1:09 PM EDTSigned Prescriptions: Disp Refills Dabigatran Etexilate Mesylate 150 MG Oral *180 Ca*1 Sig: TAKE 1 CAP BY MOUTH IN THE MORNING AND 1 CAP BEFORE BEDTIME. CAP MUST BE SWALLOWED WHOLE; DO NOT CHEW, CRUSH OR OPEN CAP Authorizing Provider: DENIS GALLOWAY Ordering User: EDWIN JORDAN * Telephone Encounter - Tresa Arredondo CPhT - 12/14/2023 12:36 PM EDT Did you pend patient's preferred pharmacy and medication before forwarding?yes Pharmacy: [facility] [facility] [place] Pending Prescriptions: Disp Refills Dabigatran Etexilate Mesylate 150 MG Oral*180 Ca*1 Last Visit: 10/25/2023 (in office), 08/24/2023 (telemedicine) Next Visit: 04/30/2024 If no future appointments scheduled, and last appointment is greater than a year ago, please schedule patient for a follow-up appointment Last date the medication was ordered: [id number] Is this request for a controlled substance?No [...] 04/30/2024 1:30 PM EST Office Visit Pharmacy, [facility] [address] [place] [id number] [facility] [address] [facility] [place] [phone] 04/30/2024 2:00 PM EST Office Visit [facility] [address] [place] [address] Denis Galloway MD [address] [facility] [place] [address] Scheduled Procedures Name Priority Associated Diagnoses Date/Ti [...] as of this encounter Visit Diagnoses Diagnosis History of cardioversion Personal history of surgery to heart and great vessels, presenting hazards to health Atrial fibrillation, unspecified type (HCC) documented in this encounter Care Teams Pharmacists Relationship Specialty Start Date End Date Denis Galloway MD [address] [place] [address] PCP - General Family Medicine 08/12/18 documented as of this encounter
[2024-01-17] MEDS: niCARdipine HCL INJ 2.5 MG/ML 10 ML AMP ONE ×2 (10:14→13:09)
[2024-01-17] MEDS: NITROGLYCERIN/D5W 100MCG/ML 20ML SYR ONE ×2 (10:14→13:43)
[2024-01-17] MEDS: OPTIRAY 350 ONE ×2 (10:15→13:42)
--- NOTE | 2024-01-17 10:35 | Hospitalist Progress Note ---
Date of Service January 17, 2024 Assessment & Plan (1) NSTEMI (non-ST elevated myocardial infarction): (2) Chronic atrial fibrillation: (3) Diabetes mellitus, type 2: (4) Morbid obesity: (5) Sleep apnea: Plan Communication with Dr. العراقي, cardiology anticipate cardiac cath today Postcardiac cath care as coordinated by cardiology Phone conversation with patient's , where patient will be going to cardiac cath May use home CPAP Monitor glucose, insulin for management Resume anticoagulation for atrial fibrillation postcardiac cath 45 minutes prolonged services on the day of admission Admission and Anticipated Discharge Date Admission Date: January 17, 2024 Subjective Patient states his chest discomfort significantly improved, 1-2. Ec hocardiogram being performed Physical Exam Physical Exam: Generally: Awake, alert, no significant distress Lungs: No respiratory distress CV: S1-S2 irregular Extremities: Chronic edema Results & Data Results & Data Vital Signs (Past 12 Hours) Vital Signs Temp Pulse Pulse Resp BP BP Pulse Ox 01/17/24 08:04 77 117/77 01/17/24 07:58 73 18 97/64 L 96 01/17/24 06:59 72 01/17/24 03:04 67 18 97 01/16/24 23:17 86 01/16/24 23:00 36.4 C L 94 H 121/73 97 01/16/24 22:59 36.8 C 86 18 91/71 L 95 01/16/24 22:59 96 O2 Del Method 01/17/24 08:04 01/17/24 07:58 Room Air 01/17/24 06:59 01/17/24 03:04 Room Air 01/16/24 23:17 01/16/24 23:00 Room Air 01/16/24 22:59 Room Air 01/16/24 22:59 Room Air Diagnostic Findings Reviewed imaging, laboratory and diagnostic studies. Pertinent findings as below. Personally reviewed EKG, atrial fibrillation controlled ventricular response Troponin 10,547.5, significant increase from previous 541 Discussed preliminary report of echocardiogram with cardiology, definite inferi or wall motion abnormality Hemoglobin A1c 7.9% Magnesium 1.4 Critical Care Time Prolonged Care Time 45 minutes
--- NOTE | 2024-01-17 10:47 | Post Anesthesia Assessment ---
Date of Service January 17, 2024 Post Sedation Assessment Vital Signs Temp Pulse Pulse Pulse Resp BP BP 01/17/24 19:23 36.9 C 87 18 138/76 01/17/24 18:55 91 H 18 146/89 H 01/17/24 18:40 81 22 138/76 01/17/24 18:25 91 H 20 125/78 01/17/24 15:58 75 130/80 01/17/24 15:30 72 122/84 01/17/24 15:18 01/17/24 15:15 75 125/82 01/17/24 14:59 71 20 127/80 01/17/24 14:37 36.5 C 75 20 128/85 01/17/24 14:06 76 18 118/77 01/17/24 13:45 77 18 135/82 01/17/24 12:45 70 16 130/86 01/17/24 12:30 82 16 125/73 01/17/24 12:15 76 16 115/79 01/17/24 12:00 74 16 137/75 01/17/24 11:45 75 16 142/88 H 01/17/24 11:30 65 16 133/77 01/17/24 08:04 77 117/77 01/17/24 07:58 73 18 97/64 L 01/17/24 06:59 72 01/17/24 03:04 67 18 01/16/24 23:17 86 01/16/24 23:00 36.4 C L 94 H 121/73 01/16/24 22:59 36.8 C 86 18 91/71 L 01/16/24 22:59 Pulse Ox O2 Del Method 01/17/24 19:23 96 Room Air 01/17/24 18:55 97 Room Air 01/17/24 18:40 97 Room Air 01/17/24 18:25 95 Room Air 01/17/24 15:58 97 Room Air 01/17/24 15:30 97 Room Air 01/17/24 15:18 Room Air 01/17/24 15:15 97 Room Air 01/17/24 14:59 96 Room Air 01/17/24 14:37 96 Room Air 01/17/24 14:06 96 Room Air 01/17/24 13:45 96 Room Air 01/17/24 12:45 98 Room Air 01/17/24 12:30 98 Room Air 01/17/24 12:15 98 Room Air 01/17/24 12:00 98 Room Air 01/17/24 11:45 98 Room Air 01/17/24 11:30 96 Room Air 01/17/24 08:04 01/17/24 07:58 96 Room Air 01/17/24 06:59 01/17/24 03:04 97 Room Air 01/16/24 23:17 01/16/24 23:00 97 Room Air 01/16/24 22:59 95 Room Air 01/16/24 22:59 96 Room Air Recovery Score Respiration: Deep Breath/Cough Circulation: +/-20% PreAnes Value Consciousness: Arouseable (by name) Oxygen Saturation: O2 needed for >90% Discharge Sedation Level of Care: Phase I Post Sedation Plan On clinical assessment, the patient appears to have tolerated the sedation without complications. Patient is recovering as anticipated. Patient will continue to be monitored by nursing and may be discharged when sedation discharge criteria are met per below protocol. Upon Completions of procedure up to 15 minutes continue every 5 minute vital signs and the P.A.R. score; then discharge to a Phase I or Fast Track to Phase II per the following guidelines: * Discharge Patient to appropriate Phase II area if PAR is 8 or greater or return to pre- procedure baseline. The post - procedure orders will be as directed. * If PAR score is less than 8 or not return to pre-procedure baseline then patient will follow Phase I monitoring till PAR is reached for Phase II. The Phase I may be done in procedure room or may call to secure a Phase I area. * If naloxone or flumazenil are used for reversal, hold in Phase I for continued monitoring from when last reversal dose was given for a minimum of 60 minutes or longer pending the nurse and/or physician discretion of patient condition before discharge to Phase II. Please call the Sedation Physician to re-evaluate and complete post-note for discharge to Phase II area. Do NOT discharge from procedure sedation or Phase 1 until post- sedation evaluation note is complete by procedure /sedation MD Sedation Discharge Instructions to be given to the patient at discharge to home.
[2024-01-17] MEDS ORDERED: NITROGLYCERIN SL 0.4 MG/TAB TAB SL PRN (11:22)
--- NOTE | 2024-01-17 11:22 | Cardiac Catheterization ---
Cardiac Cath Procedure Full Procedure Date January 17, 2024 Pre-Procedure Diagnosis Pre-Procedure Diagnosis: Non STEMI AUC Score AUC Score: 8 Post-Procedure Diagnosis Post-Procedure Diagnosis: Severe CAD Procedure(s) Performed Procedure(s) Performed: Coronary Angiography Cut Out Stitcher Chris العراقي DO Cream Gatherer(s) Kodi RTR Estimated Blood Loss Estimated Blood Loss: 5cc Medication(s) Medication(s): Fentanyl, Heparin, Lidocaine 1%, Nicardipine, Nitroglycerin and Versed Summary of Findings 70% mid, 90% distal RCA Hemodynamics Rest Ao:: 97/67/80 Final Ao: 111/71/87 LV: N/A Recommendations Recommendations: PCI without planned CABG Radiation Exposure (mGy) 1923 Contrast (mls) 90 Drains Drains: N/A Anesthesia Moderate sedation. Start 1016. End 1035. Sedation monitor: Monse NUNEZ. Procedural Complication(s) None Disposition Patient remained in Sales And Service Advisor for PCI of the RCA. I attest to the content of the Intraoperative Record and any orders documented therein. Any exceptions are noted below. ACC Data: Sales And Service Advisor Cardiac Status Clinical evaluation leading to the procedure 73-year-old male present to the emergency room with chest pain, diagnosed with NSTEMI with high-sensitivity troponin in excess of 10,000. Bedside echocardiogram reveals inferior wall motion abnormality with preserved LV systolic function. CAD Presenation: Non STEMI Anginal Classification: CCS IV Heart Failure: No Cardiogenic Shock within 24 Hours: No Cardiac Arrest within 24 Hours: No Imaging Studies Past 6 Months: No Stress Studies Past 6 Months: No STEMI OR Non-STEMI Symptom Onset Date: 01/16/24 Symptom Onset Time: 17:00 Thrombolytics: No Coronary Anatomy Dominant: Right Left Main (% Stenosis): Normal (Short vessel with nearly separate ostia of the left anterior descending and left circumflex artery.) LAD (% Stenosis): Proximal (30%) and Mid (40%) D1 (% Stenosis): Proximal (99%) and Mid (100% ) D2 (% Stenosis): Normal Circumflex (% Stenosis): Mid (Luminal irregularities, 30%.) OM1 (% Stenosis): Mid (Luminal irregularities, 20%) L PL1 (% Stenosis): Proximal (30%) RCA (% Stenosis): Ostial (30%), Proximal (20% diffuse), Mid (70%, moderate calcification) and Distal (90%) R PDA (% Stenosis): Normal R PL1 (% Stenosis): Normal (small, 1mm vessel) AM (% Stenosis): Mid (Diffuse luminal irregularities, 10%) Diagnostic Physicians Name: Chris العراقي DO Closure Device Percutaneous Entry Location: Radial Closure Device: Radial Band Recommendations: PCI without planned CABG Intraprocedure Events Significant Disection: No Perforation: No
[2024-01-17] MEDS: fentaNYL citrate PF 100 MCG/2 ML VIAL ONE ×2 (11:41→13:42)
[2024-01-17] MEDS: HEPARIN (PORCINE) 1000 UNIT/ML 10 ML (CATH LAB USE ONLY) ONE ×2 (11:42→13:42)
[2024-01-17] MEDS: IODIXANOL (VISIPAQUE) 320 MG/ML 100ML IV ONE ×2 (11:43→13:09)
[2024-01-17] MEDS: MIDAZOLAM HCL 1 MG/ML 2ML VIAL ONE ×2 (11:43→13:42)
--- NOTE | 2024-01-17 13:08 | Electrocardiogram Report ---
Test Reason : Blood Pressure : */* mmHG Vent. Rate : 78 BPM Atrial Rate : * BPM P-R Int : * ms QRS Dur : 94 ms QT Int : 388 ms P-R-T Axes : * -59 70 degrees QTcB Int : 442 ms Atrial fibrillation Left anterior fascicular block Abnormal ECG When compared with ECG of 17-Jan-2024 04:47, No significant change was found Confirmed by Fercho Denny ([id number]) on 01/17/2024 1:08:25 PM Referred By: REFERRED SELF Confirmed By: Fercho Denny
[2024-01-17] MEDS: TICAGRELOR 90 MG TAB ONE (13:09)
--- NOTE | 2024-01-17 13:13 | Electrocardiogram Report ---
Test Reason : Blood Pressure : */* mmHG Vent. Rate : 78 BPM Atrial Rate : * BPM P-R Int : * ms QRS Dur : 100 ms QT Int : 372 ms P-R-T Axes : * -42 95 degrees QTcB Int : 424 ms Atrial fibrillation Left anterior fascicular block Nonspecific T wave abnormality Lateral leads Abnormal ECG When compared with ECG of 07-Mar-2018 20:12, Atrial fibrillation has replaced Sinus rhythm Confirmed by Fercho Denny ([id number]) on 01/17/2024 1:13:04 PM Referred By: REFERRED SELF Confirmed By: Fercho Denny
--- NOTE | 2024-01-17 13:48 | Post Anesthesia Assessment ---
Date of Service January 17, 2024 Post Sedation Assessment Vital Signs Temp Pulse Pulse Pulse Resp BP BP 01/17/24 12:45 70 16 130/86 01/17/24 12:30 82 16 125/73 01/17/24 12:15 76 16 115/79 01/17/24 12:00 74 16 137/75 01/17/24 11:45 75 16 142/88 H 01/17/24 11:30 65 16 133/77 01/17/24 08:04 77 117/77 01/17/24 07:58 73 18 97/64 L 01/17/24 06:59 72 01/17/24 03:04 67 18 01/16/24 23:17 86 01/16/24 23:00 36.4 C L 94 H 121/73 01/16/24 22:59 36.8 C 86 18 91/71 L 01/16/24 22:59 Pulse Ox O2 Del Method 01/17/24 12:45 98 Room Air 01/17/24 12:30 98 Room Air 01/17/24 12:15 98 Room Air 01/17/24 12:00 98 Room Air 01/17/24 11:45 98 Room Air 01/17/24 11:30 96 Room Air 01/17/24 08:04 01/17/24 07:58 96 Room Air 01/17/24 06:59 01/17/24 03:04 97 Room Air 01/16/24 23:17 01/16/24 23:00 97 Room Air 01/16/24 22:59 95 Room Air 01/16/24 22:59 96 Room Air Recovery Score Activity: Moves 4 extremities Respiration: Deep Breath/Cough Circulation: +/-20% PreAnes Value Consciousness: Fully Awake Oxygen Saturation: > 92% On Room Air Post Anesthesia Score: 10 Discharge Sedation Level of Care: Fast Track Phase II Post Sedation Plan On clinical assessment, the patient appears to have tolerated the sedation without complications. Patient is recovering as anticipated. Patient will continue to be monitored by nursing and may be discharged when sedation discharge criteria are met per below protocol. Upon Completions of procedure up to 15 minutes continue every 5 minute vital signs and the P.A.R. score; then discharge to a Phase I or Fast Track to Phase II per the following guidelines: * Discharge Patient to appropriate Phase II area if PAR is 8 or greater or return to pre- procedure baseline. The post - procedure orders will be as directed. * If PAR score is less than 8 or not return to pre-procedure baseline then patient will follow Phase I monitoring till PAR is reached for Phase II. The Phase I may be done in procedure room or may call to secure a Phase I area. * If naloxone or flumazenil are used for reversal, hold in Phase I for continued monitoring from when last reversal dose was given for a minimum of 60 minutes or longer pending the nurse and/or physician discretion of patient condition before discharge to Phase II. Please call the Sedation Physician to re-evaluate and complete post-note for discharge to Phase II area. Do NOT discharge from procedure sedation or Phase 1 until post- sedation evaluation note is complete by procedure /sedation MD Sedation Discharge Instructions to be given to the patient at discharge to home. [facility] Procedure Codes (Charges) Indication for Procedure Indication for procedure: NSTEMI Sedation/Anesthesia Procedure 1: Sedation/Anesthesia: 27215 Mod Sedation by the same physician;Init15 Min Child Age 5 & Up (INITIAL 15 MIN, START 13:11) Procedure 2: Sedation/Anesthesia: 64484 Mod Sedation by the same physician; Ea [id number] Minutes (ADDITIONAL 14 MIN)
[2024-01-17] MEDS: HEPARIN 25000 UNIT/500 ML D5W IV ONE (14:10)
[2024-01-17] MEDS: Heparin IV Adult Wt-Based Standard *NO* INITIAL Bolus Protocol IV ONE (14:22)
[2024-01-17] MEDS: HEPARIN SODIUM/DEXTROSE 25,000 UNITS/500 ML BAG IV SCH ×2 (14:22→18:00)
[2024-01-17] MEDS ORDERED: Heparin IV Adult Wt-Based Standard *NO* INITIAL Bolus Protocol IV SCH (16:30)
--- NOTE | 2024-01-17 16:52 | Discharge Summary ---
Discharge Summary Date of Service January 17, 2024 Principal Dx & Hospital Course #1 = Principal Diagnosis (1) NSTEMI (non-ST elevated myocardial infarction): (2) Chronic atrial fibrillation: (3) Diabetes mellitus, type 2: (4) Morbid obesity: (5) Sleep apnea: Plan Patient presented to the emergency room with chest tightness and discomfort. Admitted to the hospital for evaluation acute coronary syndrome. Troponins rapidly trended upward. Cardiology consultation was obtained. Patient was taken to the cardiac Senior Process Analyst urgently.Cardiac catheterization revealed 70% mid and 90% distal RCA stenosis that was unnameable to PCI. Patient was started on IV heparin and cardiology initiated transfer to higher level of care. Postcardiac cath course was uneventful. Patient's chest pain had improved. Extensive discussion with the patient and at bedside. They are aware of recommendations for transfer. Patient will be maintained on IV heparin, transferred to [facility] when bed available for further evaluation for intervention on patient's RCA disease. Notes For Next Care Provider Continued cardiac care Medication Changes From Visit Pradaxa on hold, IV heparin for non-STEMI Admission HPI Per Admitting Provider History obtained from patient, family, and records. Medical history significant for A-fib on Pradaxa, hypertension, hyperlipidemia, COPD as per records, ROGER on CPAP, DM2 insulin requiring, GERD, BPH, gout. Last confinement 2016 for new onset A-fib status post cardioversion. Patient discharged on metoprolol and Pradaxa. Patient had achy left-sided chest pain without cough, SOB symptoms last night. Symptoms transiently improved by consumption of old nitroglycerin tablets at home. Compliant with home medications. Denies fluid retention. Aspirin and Nitropaste administered at the ER. 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 Lungs: Clear to auscultation, decreased, no wheezes rales or rhonchi CV: S1-S2, irregular Abdomen: Soft, nontender, nondistended Extremities: No significant edema, right wrist pressure bandage in place post cath Neuro: No focal deficits Psych: Cooperative, normal mood Updated Medication List Medication Instructions Recorded Confirmed Type atorvastatin 40 mg tablet 40 mg PO HS 03/07/18 01/17/24 History dabigatran etexilate 150 mg 150 mg PO AMHS 03/07/18 01/17/24 History capsule (Pradaxa) fosinopril 40 mg tablet 40 mg PO QAM 03/07/18 01/17/24 History insulin glargine 100 unit/mL 80 unit subcut QAM 03/07/18 01/17/24 History subcutaneous solution (Lantus U-100 Insulin) metoprolol tartrate 25 mg tablet 25 mg PO AMHS 03/07/18 01/17/24 History nitroglycerin 0.4 mg sublingual 0.4 mg sublingual DIRECTED PRN 03/07/18 01/17/24 History tablet (Nitrostat) Chest Pain tamsulosin 0.4 mg capsule (Flomax) 0.4 mg PO HS 03/07/18 01/17/24 History tramadol 50 mg tablet 50 mg PO TID PRN Pain 03/07/18 01/17/24 History albuterol sulfate 90 mcg/actuation 2 puff inhalation QID PRN 12/23/18 01/17/24 History aerosol inhaler (Ventolin HFA) Shortness Of Breath allopurinol 300 mg tablet 300 mg PO QAM 12/23/18 01/17/24 History amlodipine 5 mg tablet 5 mg PO QAM 01/17/24 01/17/24 History cyanocobalamin (vitamin B-12) 1,000 mcg PO 3XWK 01/17/24 01/17/24 History 1,000 mcg tablet (Vitamin B-12) finasteride 5 mg tablet 5 mg PO HS 01/17/24 01/17/24 History metformin 500 mg tablet,extended 500 mg PO UD 01/17/24 01/17/24 History release 24 hr semaglutide 2 mg/dose (8 mg/3 mL) 2 mg subcut WK 01/17/24 01/17/24 History subcutaneous pen injector (Ozempic) Hospital Stay Data Consultations 01/17/24 00:25 ED Decision to Admit Stat 01/17/24 03:04 Consult Cardiology Routine 01/17/24 16:27 Burn CD for patient Stat Procedures Performed Operation Date: 01/17/24 13:00 Actual Procedures p Cineradiography w/Routine Exam - Ta Thomas MD, PhD p Cath, Coronaries ONLY (no LV) - Chris العراقي, p POBA SGL Vessel - Ta Thomas MD, PhD Diagnostic Imagining Performed Reviewed imaging, laboratory and diagnostic studies. Pertinent findings as below. I refer you to the cardiac cath report for full details, significant RCA disease. Magnesium 1.4, replaced Troponin 10,547.5 Echocardiogram report pending EKG showing chronic atrial fibrillation controlled ventricular response 01/17/24 09:51 CL Cath Imgs for PACS use only Routine 01/17/24 12:43 CL Cath Imgs for PACS use only Routine Pending Results Patient Have Any Pending Studies at Discharge: No Discharge Instructions Given to Patient (Per Discharging Provider) Recommend transfer to higher level of care for ongoing cardiac care Total Time Total Time Spent Total Time Spent (In Minutes): 46
[2024-01-17] MEDS ORDERED: NITROGLYCERIN 2% OINTMENT 30GM TUBE EXT SCH (18:00)
[2024-01-17] MEDS ORDERED: STAT IV Infusion **Titration per Protocol STA (18:00)
[2024-01-17] MEDS: NITROGLYCERIN/D5W 100MCG/ML 250 ML IV SCH (18:19)
[2024-01-17] MEDS ORDERED: TAMSULOSIN HCL 0.4 MG CAP PO SCH (21:00)
[2024-01-17] MEDS ORDERED: FINASTERIDE 5 MG TAB PO SCH (21:00)
[2024-01-17] MEDS ORDERED: ATORVASTATIN 40 MG TAB PO SCH (21:00)
[2024-01-18] MEDS ORDERED: ASPIRIN 81 MG ECTAB PO SCH (09:00)
--- NOTE | 2024-01-19 11:50 | Cardiac Catheterization ---
ACC Data: Scientific Software Developer Cardiac Status Clinical evaluation leading to the procedure CAD Presenation: Non STEMI Anginal Classification: CCS IV Cardiogenic Shock within 24 Hours: No Cardiac Arrest within 24 Hours: No Coronary Anatomy LAD (% Stenosis): Proximal (50 to 60% heavy calcification), Mid (Diffuse calcification less than 50% stenosis) and Distal D1 (% Stenosis): Proximal (99 to 100%) D2 (% Stenosis): Normal Circumflex (% Stenosis): Proximal (Less than 50% calcified) and Mid (50 to 70% calcified) OM1 (% Stenosis): Normal L PL1 (% Stenosis): Normal Diagnostic Physicians Name: Ta Thomas MD, PhD Closure Device Percutaneous Entry Location: Radial Recommendations: PCI without planned CABG Cardiac Cath Procedure Full Procedure Date January 17, 2024 START 10:45 Pre-Procedure Diagnosis Pre-Procedure Diagnosis: Non STEMI AUC Score AUC Score: 7 Post-Procedure Diagnosis Post-Procedure Diagnosis: Severe CAD Procedure(s) Performed Procedure(s) Performed: Coronary Angiography Principal Architect Ta Thomas MD, PhD Nurse Practical(s) Kodi RTR Estimated Blood Loss Estimated Blood Loss: 5cc Medication(s) Medication(s): Fentanyl, Heparin and Versed Summary of Findings Brief description: I was asked to evaluate the patient's coronary anatomy and proceed with PCI as indicated. Initial diagnostic coronary angiography was performed by Dr. العراقي via the radial artery approach. However, because of the patient's large body habitus and heavily calcified vessels in addition to his essentially separate LAD and circumflex coronary ostia the left coronary angiography was of inadequate quality for me to plan appropriate intervention. Therefore, I initially endeavored to repeat coronary angiography and based decisions with regard to PCI on results. Patient had a 6 Australian radial artery glide sheath in place. He had already received heparin. ACT was checked and additional heparin was provided as needed to maintain therapeutic anticoagulation. Patient was also provided additional sedation with fentanyl and Versed. All catheters were advanced and exchanged over a 0.035 J-tip wire. A 5 Australian JL 3.5 guide catheter was chosen to engage the LAD. This was chosen in anticipation that IFR analysis of the LAD may be necessary. Coronary angiography was performed in multiple views. A 5 Australian MPA 2 catheter was then used in an attempt to selectively engage the left circumflex. However, this was unsuccessful. A 5 Australian AR-1 diagnostic catheter was then used to attempt to engage the circumflex. We could not selectively engage but we did have adequate angiography to evaluate the vessel nonselectively. Multiple views were taken. After left coronary angiography was completed decision was made to attempt PCI of the RCA. However, an emergency ST elevation NH was called overhead and we decided to remove the patient from the table so that we could address the emergency case JF. The radial artery sheath was therefore dressed and fixed in place. The patient was removed from the table and transported to the holding area with plan for return to the Scientific Software Developer and attempted PCI of the RCA. This ended the case. Coronary angiography findings: LAD-proximally there is a long eccentric hazy and severely calcified stenosis appearing 50 to 60% narrowed. LAD gives a first diagonal with proximal 99 to 100% occlusion. The mid LAD also has diffuse heavy calcification with a lesion appearing less than 50% stenosed. It then gives a second diagonal which has no disease. The distal LAD near the apex has less than 30% stenosis. LCx-this is heavily calcified in the proximal and mid segments. Appears to be up to 50% narrowing in the proximal segment. Vessel gives a large branching OM1 which has no significant disease. The mid AV groove circumflex has 50 to 60% narrowing angiographically. It then provides a small posterolateral branch. Summary: 1. Selective LAD coronary angiography reveals moderate to borderline severe proximal LAD lesion with moderate mid and mild distal LAD disease. Subtotal occlusion of the D1 which is too small for PCI. Additionally, the circumflex appears to have moderate proximal disease and moderate to borderline severe mid AV groove vessel disease. The large branch vessels are without significant disease. None of these lesions appear to be acute/thrombotic and are unlikely to be the culprit for his non-ST elevation NH. Therefore, plan attempted intervention of the RCA lesion which is severe and better correlates with his echo findings (RCA territory hypokinesis). Likely to be the culprit although this also does not appear to be an acute lesion. 2. Plan to return to the Scientific Software Developer later today to attempt PCI of the RCA. Significant issues include heavily calcified vessels, and morbid obesity with the patient having received a significant radiation dose just to complete diagnostic case. Hemodynamics Rest Ao:: 118/77 mmHg Final Ao: 110/79 mm of LV: Not performed Recommendations Recommendations: PCI without planned CABG Radiation Exposure (mGy) 3026 mGy, fluoroscopy time 13 minutes Contrast (mls) 150 cc Drains Drains: N/A Anesthesia 2 mg Versed, 50 mcg fentanyl IV. Start time 1045, end time 1110 Procedural Complication(s) None Disposition Scientific Software Developer Holding/Recovery I attest to the content of the Intraoperative Record and any orders documented therein. Any exceptions are noted below. [facility] Card Cath Procedure Codes Cardiac Catheterization Procedure 1: Cardiovascular Cath Procedures: 61410 Coronaries Moderate Sedation Procedure 1: Sedation/Anesthesia: 05693 Mod Sedation by a different physician ;Init15 Min Child Age 5&Up (Start time 1045, initial 15 minutes) Procedure 2: Sedation/Anesthesia: 92306 Mod Sedation by a different physician;Ea Additional 15 Minutes (Additional 10 min, end time 1110) PG Care Time/CCT Total # of Minutes Spent Total Time Spent with Patient: Total time spent is greater than 50% in coordination of care (as documented) at patient's floor/unit and/or counseling patient:
--- NOTE | 2024-01-19 12:28 | Cardiac Catheterization ---
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: Business Planner Cardiac Status Clinical evaluation leading to the procedure CAD Presenation: Non STEMI Anginal Classification: CCS IV Coronary Anatomy Dominant: Co-Dominant (See diagnostic report) Diagnostic Physicians Name: Ta Thomas MD, PhD Closure Device Percutaneous Entry Location: Radial Closure Device: Radial Band Recommendations: PCI without planned CABG PCI Indication: PCI for high risk Non-DENZEL Lesion Segment Name: Distal RCA Culprit Artery: Yes Stenosis Prior to Rx (%): 99 Chronic Total Occlusion: No Pre-Procedure FORREST Flow: 2 Previously Treated Lesion: No Lesion Complexity: Non-High/Non-C Lesion Length (mm): 12 Thrombus Present: No Bifurcation Lesion: No Guidewire Across Lesion: Yes Intraprocedure Events Significant Disection: No Perforation: No Cardiac Cath Procedure Full Procedure Date January 19, 2024 Pre-Procedure Diagnosis Pre-Procedure Diagnosis: Non STEMI AUC Score AUC Score: 7 Post-Procedure Diagnosis Post-Procedure Diagnosis: Unsuccessful PCI Procedure(s) Performed Procedure(s) Performed: PTCA Supervisor Data Processing Ta Thomas MD, PhD Risk Assessment Consultant(s) Kodi RTR Estimated Blood Loss Estimated Blood Loss: 5cc Medication(s) Medication(s): Fentanyl, Heparin and Versed Summary of Findings Brief description: Patient was returned to the Business Planner after his initial case was interrupted because of an emergency. He had the 6 [place] radial artery glide sheath in place. This was reprepped and then exchanged for a new 6 [place] radial artery glide sheath over the wire. He was provided nicardipine and nitroglycerin. ACT was checked and additional heparin was provided as needed to maintain therapeutic anticoagulation. PCI was undertaken using a 6 [place] JR4 guide catheter used to engage the right coronary. Through this a BMW reversal guidewire was advanced with some difficulty and positioned distally in the RCA. Initially attempted to deliver a 2.0 x 12 mm trek balloon but this could not pass the lesion. Therefore, it was exchanged for a sprinter 1.5 x 12 mm balloon but this also could not pass the distal lesion. It was removed and in its place a guide liner catheter extension was advanced. Then, the sprinter 1.5 x 12 mm balloon was reintroduced and was able to pass the lesion distally. The lesion was predilated up to 8 carolynn. This resulted in some improvement in the luminal diameter and therefore the balloon was exchanged for the 2.0 x 12 mm trek balloon. However, despite multiple attempts and advancement of the guide liner catheter we were unable to deliver a balloon across the lesion. Because of his high radiation requirement and evidence that we would be unlikely to advance the balloon across this lesion decision was made to abandon further attempts at PCI for the day. After removal of the guide liner, the balloon catheter, and the guidewire a final angiographic evaluation was performed. The guide catheter was then removed over the J-wire. Radial artery sheath was removed. Hemostasis was obtained using the TR band. Patient was hemodynamically stable and asymptomatic. He was therefore returned to the recovery area. This ended the case. PCI findings: 99% stenosis of the distal RCA is reduced to 95% stenosis status post PTCA. Note: When the guidewire crossed lesion the vessel was completely occluded. Thus, it was more severely stenosed than initially appreciated. FORREST-3 flow post PTCA No evidence of dissection or perforation post PTCA Summary: 1. PTCA of the distal RCA lesion results in modest improvement of luminal diameter and flow. However, the lesion is fairly unyielding. The radial artery approach was suboptimal to provide adequate backup support to deliver additional interventional equipment. 2. Since the patient no longer had any chest pain I recommend the following; medical management for secondary prevention of coronary artery disease per primary equipment installer. Also, titrate up his antianginal regimen and include dual antiplatelet therapy. Finally, in a few weeks I would have the patient seen at a tertiary center regarding high risk staged PCI of the RCA and/or Doppler wave wire analysis of the LAD and circumflex. My suspicion is that the patient actually has three-vessel coronary disease. If not, this should be more definitively excluded by hemodynamic assessment and if he does not fact have three-vessel coronary disease then bypass grafting would be a better option than stenting. Hemodynamics Rest Ao:: 114/69 mmHg Final Ao: 124/76 mmHg LV: Not performed Recommendations Recommendations: PCI without planned CABG Radiation Exposure (mGy) 1151 mGy (total for day 4177 mGy), fluoroscopy time 7.3 minutes Contrast (mls) 70 mL Drains Drains: N/A Anesthesia 1 mg Versed, 25 mcg fentanyl IV. Start time 1311, end time 1340 Procedural Complication(s) None Disposition Business Planner Holding/Recovery I attest to the content of the Intraoperative Record and any orders documented therein. Any exceptions are noted below. [facility] Card Cath Procedure Codes Moderate Sedation Procedure 1: Sedation/Anesthesia: 78077 Mod Sedation by the same physician;Init15 Min Child Age 5 & Up (Initial 15 minutes, start time 1311) Procedure 2: Sedation/Anesthesia: 46991 Mod Sedation by the same physician; Ea [id number] Minutes (Additional 14 minutes, end time 1340) Angioplasty Procedure 1: Cardiovascular Angioplasty Procedures: 03724 PTCA; Single mafor coronary artery or branch RC LC LD (RCA) PG Care Time/CCT Total # of Minutes Spent Total Time Spent with Patient: Total time spent is greater than 50% in coordination of care (as documented) at patient's floor/unit and/or counseling patient:
== END 2024-01-17 20:30 | disposition short-term general hospital (02) | DRG 281 ==
LOC: ED 22:59 → EDINP 22:59 → 4W 01-17 14:05

== ENCOUNTER 2025-02-19 12:33 | Inpatient (IN) ==
[2025-02-19 13:42] LABS: Hematocrit (blood only) 38.8 % (42.0-52.0); Hemoglobin 12.7 g/dl (14.0-18.0); Immature Granulocytes # (auto) 0.07 K/uL (0.01-0.20); Immature Granulocytes % (auto) 0.6 %; Mean Corpuscular Hemoglobin 29.3 pg (25.0-34.0); Mean Corpuscular Volume 89.6 fL (80.0-100.0); Platelet Count 255 K/uL (130-400); RDW Standard Deviation 46.9 fL (36.4-46.3); Red Blood Count 4.33 M/uL (4.70-6.10); White Blood Count 11.44 K/ul (4.8-10.8)
--- NOTE | 2025-02-19 13:51 | XRay Report ---
XR chest 2V PA/lateral CLINICAL HISTORY: Chest pain, nonspecific COMPARISON STUDY: 11/13/2024 FINDINGS: Heart size and pulmonary vasculature are normal. No consolidation or pleural effusion. No p neumothorax. IMPRESSION: No acute findings. ACT 112: Negative or not required by law. Electronically signed by: Wei Nguyen M.D. 02/19/2025 1:49 PM
[2025-02-19 14:01] LABS: Alanine Aminotransferase 11 U/L (7-52); Albumin Globulin Ratio 1.0 (0.9-2); Albumin Level 3.4 gm/dl (3.4-5.0); Alkaline Phosphatase 88 U/L (34-104); Anion Gap 8 (3-11); Bilirubin,Total 0.6 mg/dl (0.2-1.0); Blood Urea Nitrogen 15 mg/dl (6-23); Calcium 9.3 mg/dl (8.6-10.3); Carbon Dioxide 28 mmol/L (21-32); Chloride 102 mmol/L (98-107); Globulin 3.5 gm/dl (2.5-4.0); Glucose 215 mg/dl (70-99(Fasting)); Lipase 37 U/L (11-82); Magnesium 1.4 mg/dl (1.7-2.4); Potassium 4.5 mmol/L (3.5-5.1); Sodium 138 mmol/L (136-145); Total Protein 6.9 gm/dl (6.0-8.3)
[2025-02-19 14:14] LABS: INR 1.1 (0.9-1.1); Partial Thromboplastin Time 30 Seconds (21-31); Prothrombin Time 11.5 Seconds (9.0-12.0)
[2025-02-19] MEDS: MAGNESIUM SULFATE / D5W 1 GM/100 ML BAG IV STA (14:16)
[2025-02-19] MEDS: ASPIRIN 81 MG CHEW PO STA (14:35)
--- NOTE | 2025-02-19 14:47 | Emergency Department Note ---
ED Visit Note I was consulted by the Advanced Practice Provider, KAMRAN Hall. I performed a substantive portion of the visit. This includes aspects of: History: Patient is a 74-year-old male presenting with shortness of breath and diaphoresis. Reportedly has been having episodes of diaphoresis and shortness of breath over the past 2 days. He had called his director of neurology who referred him to the emergency department. MDM: Laboratory workup in the emergency department showed slight leukocytoss (WBC 11.44); normal PT/INR; stable electrolytes other than hypomagnesemia (Mg 1.4); troponin (180.7). Chest x-ray image reviewed by myself is needed for pneumonia, per my interpretation. EKG image reviewed and interpreted by myself showed normal sinus rhythm. Rate 86 bpm. QT 388. No acute ischemic changes. Patient was given 1 g IV magnesium for electrolyte replacement and loaded with 324 mg of aspirin. He will be admitted to hospitalist service for further cardiac workup. .
--- NOTE | 2025-02-19 14:52 | Emergency Department Note ---
Impression & Plan Elevated troponin, Hypomagnesemia ED Provider Note CHIEF COMPLAINT: Chest pain shortness of breath HISTORY OF PRESENTING ILLNESS: Patient is a 74-year-old male presents to the emergency department today for complaints of shortness of breath and mid chest burning that he experiences at nighttime. He has been following with his PCP for this complaint and was recently put on Carafate and omeprazole but has not yet taking a dose. He does have a significant cardiac history with aortic stenosis, dyslipidemia, hypertension, A-fib, NSTEMI, 3 stents, type 2 diabetes, sleep apnea with CPAP use. Patient reports anywhere before bedtime he starts to experience some burning in the esophagus area that travels down into his stomach. At that time he will typically get an episode of shortness of breath that is relieved with his CPAP use. He has been using Tums when he experiences the symptoms and that does seem to relieve them. He also reports some episodes of sweating at the time of this occurrence. Currently he is denying any chest pain, shortness of breath, or any other discomfort. He denies any fevers or chills, headache, blurred vision, lightheadedness, syncope, dizziness, or any other neurological deficits. REVIEW OF SYSTEMS: See HPI for pertinent positives and pertinent negatives. ALLERGIES: See below MEDICATIONS: See below PAST MEDICAL HISTORY: See below PHYSICAL EXAM: VITAL SIGNS - Vital signs and nursing notes were reviewed. GENERAL -74-year-old male appearing his stated age who is in no acute distress. Communicates well with provider and answers questions appropriately. SKIN - Without rashes. HEAD - NC/AT. EYES - PERRL with EOMI bilaterally. Sclera anicteric. Palpebral conjunctiva pink and moist with no injection noted. MOUTH/OROPHARYNX - Without perioral cyanosis. Buccal mucosa pink and moist and without leukoplakia. Tongue midline with equal elevation of palate bilaterally. No tonsillar hypertrophy, erythema, or exudates noted. Good dentition noted. NECK - Neck with FROM. Supple to palpation. No lymphadenopathy noted. No nuchal rigidity. LUNGS - Chest wall symmetric without accessory muscle use, intercostals retractions, or central cyanosis. Normal vesicular breath sounds CTA B/L. No wheezes, rales, or rhonchi appreciated. CARDIAC -irregular rhythm noted. No murmur, rubs, or gallops appreciated. ABDOMEN - Abdominal contour is without pulsations or visible masses. BS normoactive all four quadrants. No tenderness, palpable masses, hepatosplenomegaly, or ascites noted. EXTREMITIES - No clubbing or peripheral cyanosis. No pretibial edema present. +3/5 radial, posterior tibial, and dorsalis pedis pulses palpated throughout. NEUROLOGIC - Sensory intact to light touch throughout. Patellar reflexes +2/4. PSYCH - A&Ox3 and cooperates fully with examiner. Pt is very pleasant and interacts well with examiner. DIFFERENTIAL DIAGNOSIS: Differential diagnosis includes acute coronary syndrome, pulmonary embolism, pneumothorax, pericarditis, myocarditis, endocarditis, anxiety, musculoskeletal pain, GERD, costochondritis, pneumonia, among others. ED COURSE AND MEDICAL DECISION MAKING: HISTORY FROM INDEPENDENT HISTORIAN: History was provided by the patient and his who acts as a secondary historian at the bedside. MONITOR: Continuous integrated logistics support manager: Order was placed for continuous integrated logistics support manager. Patient was placed on the integrated logistics support manager and continuous pulse ox. Patient was noted to be in normal sinus rhythm at an initial rate of 90 bpm per my interpretation. EKG: EKG was interpreted by myself as irregular rhythm, A-fib with a ventricular rate of 86 bpm. INTERPRETATION OF LABS: I interpreted the labs with full lab results as below in the lab section of this note. Laboratory results pertinent to the emergent complaint are discussed in the MDM section below. The patient was advised to follow up with their PCP and/or specialist(s) for further outpatient monitoring and management of any abnormal results. INTERPRETATION OF IMAGING: Imaging studies were interpreted by myself and read by radiology as per the imaging section of this note. The patient was advised to follow up with their PCP and/or specialist(s) for further outpatient management of any non-emergent abnormal findings. CHRONIC MEDICAL/SOCIAL CONDITIONS AFFECTING CARE: No social concerns were identified as barriers to patients care. EXTERNAL RECORDS REVIEWED: I reviewed the patient's cardiology consult inpatient visit from 01/17/2024. I also reviewed the patient's invasive cardiac summary report from 01/17/2024. ESCALATION OF CARE CONSIDERED: I considered admission on this patient due to elevated troponins and hypomagnesemia. CONSULTATIONS: I had a meaningful discussion about this patient with Dr. Juares who agrees with my assessment and the treatment plan. I also consulted with Dr. Trina bonilla who will plan to see the patient tomorrow and consider laborer rags. I spoke to Dr. Cobian for admission to the hospital. The patient was accepted. SUMMARY: I examined the patient for complaints of chest pain and shortness of breath. A physical exam and history were performed. Nursing notes, EMR, and medication list were personally reviewed. CBC showed a mild leukocytosis with a white blood cell count of 11.44, mild anemia with a hemoglobin of 12.7. There is no thrombocytopenia. PT/INR and APTT are normal. CMP shows no emergent findings. Magnesium was 1.4, the patient was given 1 g replacement in the emergency department. BNP was 222. Initial troponin was 180.72-hour repeat was 188. The patient was given 324mg of ASA. Urinalysis showed no nitrites, trace leukocytes. The patient declines any urinary symptoms. I spoke with Dr. Mena with cardiology who will plan to see the patient tomorrow and consider Loss Prevention Agent. I then spoke with Dr. Cobian who accepts the patient for admission. The patient is to have close outpatient follow-up with a recheck of their symptoms. To return to the ER sooner for any significantly changing or worsening symptoms. The patient was educated on the treatment plan and the discharge instructions. The patient was discharged home in stable condition and verbalized understanding of all discharge instructions and treatment plan. DIAGNOSIS: Elevated troponins, hypomagnesemia TREATMENT PLAN/DISCHARGE INSTRUCTIONS: Admit to hospitalist services The chart was completed utilizing [employer] Speech voice recognition software.Grammatical errors, random word insertions, pronoun errors, and incomplete sentences are an occasional consequence of this system due to software limitations, ambient noise, and hardware issues.Any formal questions or concerns about the content, text, or information contained within the body of this dictation should be directly addressed to the physician for clarification. Past Med/Surg History Problem List (Updated 02/19/25 @ 21:21 by KAMRAN Hinojosa) Hypomagnesemia (Acute) GERD (gastroesophageal reflux disease) Elevated troponin (Acute) Diastolic CHF due to valvular disease Aortic stenosis Dyslipidemia, goal LDL below 70 Hypertension Chronic atrial fibrillation NSTEMI (non-ST elevated myocardial infarction) Hyperglycemia due to diabetes mellitus (Acute) Substernal chest pain (Acute) Osteoarthritis of both knees Encounter for pre-operative examination Diabetes (Chronic) New onset a-fib New onset a-fib Medical History (Updated 02/19/25 @ 21:21 by KAMRAN Hinojosa) Morbid obesity History of colon polyps Gout BPH (benign prostatic hyperplasia) Diabetes mellitus, type 2 On anticoagulant therapy pradaxa bid Hyperlipidemia Shortness of breath on exertion reason for inhaler Sleep apnea cpap Atrial fibrillation reason for pradaxa and follows with Dr. 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 Required: No Beliefs That Will Affect Care: None marital status: Current Living Situation: Family Current Living Situation Comment: Lives with and 1 son and 1 daughter current occupational status: retired Other Information That Helps Us Care for You: No Feels Safe at Home: Yes Safety Concerns: Feels Safe At This Time Assistive Devices: CPAP, Glasses, Scooter/Electric Scooter and Walker Allergies Allergies Allergy/AdvReac Type Severity Reaction Status Date / Time Sulfa (Sulfonamide AdvReac Intermediate Gastrointestinal Verified 01/17/24 01:23 Antibiotics) Upset Home Meds Home Medications Medication Instructions Recorded Confirmed atorvastatin 40 mg tablet 40 mg PO HS 03/07/18 02/19/25 fosinopril 40 mg tablet 40 mg PO QAM 03/07/18 02/19/25 insulin glargine 100 unit/mL 100 unit subcut QAM 03/07/18 02/19/25 subcutaneous solution (Lantus U-100 Insulin) nitroglycerin 0.4 mg sublingual 0.4 mg sublingual DIRECTED PRN 03/07/18 02/19/25 tablet (Nitrostat) Chest Pain tamsulosin 0.4 mg capsule (Flomax) 0.4 mg PO QAM 03/07/18 02/19/25 tramadol 50 mg tablet 50 mg PO BID PRN Pain 03/07/18 02/19/25 albuterol sulfate 90 mcg/actuation 2 puff inhalation QID PRN 12/23/18 02/19/25 aerosol inhaler (Ventolin HFA) Shortness Of Breath allopurinol 300 mg tablet 300 mg PO HS 12/23/18 02/19/25 cyanocobalamin (vitamin B-12) 1,000 mcg PO 3XWK 01/17/24 02/19/25 1,000 mcg tablet (Vitamin B-12) finasteride 5 mg tablet 5 mg PO HS 01/17/24 02/19/25 metformin 500 mg tablet,extended 500 mg PO BID 01/17/24 02/19/25 release 24 hr semaglutide 2 mg/dose (8 mg/3 mL) 2 mg subcut WK 01/17/24 02/19/25 subcutaneous pen injector (Ozempic) apixaban 5 mg tablet (Eliquis) 5 mg PO BID 11/13/24 02/19/25 bumetanide 2 mg tablet 1.5 mg PO QAM 11/13/24 02/19/25 clopidogrel 75 mg tablet 75 mg PO HS 11/13/24 02/19/25 metoprolol succinate 100 mg 100 mg PO HS 02/19/25 02/19/25 tablet,extended release 24 hr omeprazole 20 mg capsule,delayed 20 mg PO HS 02/19/25 02/19/25 release sucralfate 1 gram tablet 1 g PO QID 02/19/25 02/19/25 Results & Data (ED) Vital Signs Vital Signs - 24 hr 02/19/25 12:42 02/19/25 13:47 02/19/25 15:20 Temperature 36.6 C Temperature Source Temporal Artery Scan Pulse Rate 88 91 H 77 Pulse Rate from SpO2 Sensor Respiratory Rate 18 20 Blood Pressure 119/70 Blood Pressure Mean 86 Pulse Oximetry 99 Oxygen Delivery Method Room Air Sepsis Recent Fever Within 48 Hours No Sepsis New/Unexplained Change in Mental Status No Sepsis Action Taken by Nursing No Action Required 02/19/25 15:41 02/19/25 16:29 02/19/25 16:32 Temperature Temperature Source Pulse Rate 77 75 76 Pulse Rate from SpO2 Sensor 76 75 Respiratory Rate 19 15 20 Blood Pressure Blood Pressure Mean Pulse Oximetry 100 100 Oxygen Delivery Method Sepsis Recent Fever Within 48 Hours Sepsis New/Unexplained Change in Mental Status Sepsis Action Taken by Nursing 02/19/25 17:05 02/19/25 17:19 02/19/25 17:19 Temperature Temperature Source Pulse Rate 82 Pulse Rate from SpO2 Sensor 85 Respiratory Rate 18 Blood Pressure 132/74 132/74 Blood Pressure Mean 103 103 Pulse Oximetry 99 Oxygen Delivery Method Sepsis Recent Fever Within 48 Hours Sepsis New/Unexplained Change in Mental Status Sepsis Action Taken by Nursing 02/19/25 17:19 Temperature Temperature Source Pulse Rate Pulse Rate from SpO2 Sensor Respiratory Rate Blood Pressure 132/74 Blood Pressure Mean 103 Pulse Oximetry Oxygen Delivery Method Sepsis Recent Fever Within 48 Hours Sepsis New/Unexplained Change in Mental Status Sepsis Action Taken by Nursing Laboratory Data 02/19/25 12:55 02/19/25 12:55 Lab Results 02/19/25 02/19/25 02/19/25 Range/Units 12:55 14:59 15:47 WBC 11.44 H (4.8-10.8) K/ul RBC 4.33 L (4.70-6.10) M/uL Hgb 12.7 L (14.0-18.0) g/dl Hct 38.8 L (42.0-52.0) % MCV 89.6 (80.0-100.0) fL MCH 29.3 (25.0-34.0) pg MCHC 32.7 (32.0-36.0) g/dL RDW Std Deviation 46.9 H (36.4-46.3) fL RDW Coeff of Nima 14.6 H (11.5-14.5) % Plt Count 255 (130-400) K/uL MPV 10.5 (9.4-12.4) fL Immature Gran % (Auto) 0.6 % Neut % (Auto) 65.7 % Lymph % (Auto) 24.2 % Lewis % (Auto) 6.3 % Eos % (Auto) 2.6 % Baso % (Auto) 0.6 % Neut # (Auto) 7.51 H (1.40-6.50) K/uL Lymph # (Auto) 2.77 (1.20-3.40) K/uL Lewis # (Auto) 0.72 H (0.11-0.59) K/uL Eos # (Auto) 0.30 (0.00-0.50) K/uL Baso # (Auto) 0.07 (0.00-0.20) K/uL Immature Gran # (Auto) 0.07 (0.01-0.20) K/uL PT 11.5 (9.0-12.0) Seconds INR 1.1 (0.9-1.1) APTT 30 (21-31) Seconds PTT Ratio 1.1 Sodium 138 (136-145) mmol/L Potassium 4.5 (3.5-5.1) mmol/L Chloride 102 (98-107) mmol/L Carbon Dioxide 28 (21-32) mmol/L Anion Gap 8 (3-11) BUN 15 (6-23) mg/dl Creatinine 0.86 (0.6-1.4) mg/dl Est Cr Clr Drug Dosing Not Reportable eGFR 89.74 BUN/Creatinine Ratio 17.4 (10-20) Glucose 215 H (70-99(Fasting)) mg/dl Calcium 9.3 (8.6-10.3) mg/dl Magnesium 1.4 L (1.7-2.4) mg/dl Total Bilirubin 0.6 (0.2-1.0) mg/dl AST 16 (13-39) U/L ALT 11 (7-52) U/L Alkaline Phosphatase 88 (34-104) U/L Troponin I High Sens 180.7 H* 188.0 H* (0-20) pg/ml B-Natriuretic Peptide (0-100) pg/ml Total Protein 6.9 (6.0-8.3) gm/dl Albumin 3.4 (3.4-5.0) gm/dl Globulin 3.5 (2.5-4.0) gm/dl Albumin/Globulin Ratio 1.0 (0.9-2) Lipase 37 (11-82) U/L Adenovirus (PCR) Not Detected (NotDetected) B. pertussis DNA (PCR) Not Detected (NotDetected) B.parapertussis DNA PCR Not Detected (NotDetected) C. pneumoniae DNA (PCR) Not Detected (NotDetected) Coronavirus OC43 (PCR) Not Detected (NotDetected) Coronavirus HKU1 (PCR) Not Detected (NotDetected) Coronavirus 229E (PCR) Not Detected (NotDetected) SARS-CoV-2 (PCR) Not Detected (NotDetected) Coronavirus NL63 (PCR) Not Detected (NotDetected) Human Metapneumovir PCR Not Detected (NotDetected) Influenza Type A (PCR) Not Detected (NotDetected) Influenza Type B (PCR) Not Detected (NotDetected) M. pneumoniae (PCR) Not Detected (NotDetected) Parainfluenza 1 (PCR) Not Detected (NotDetected) Parainfluenza 2 (PCR) Not Detected (NotDetected) Parainfluenza 3 (PCR) Not Detected (NotDetected) Parainfluenza 4 (PCR) Not Detected (NotDetected) RSV (PCR) Not Detected (NotDetected) Entero/Rhino (PCR) Not Detected (NotDetected) 02/19/25 Range/Units 15:52 WBC (4.8-10.8) K/ul RBC (4.70-6.10) M/uL Hgb (14.0-18.0) g/dl Hct (42.0-52.0) % MCV (80.0-100.0) fL MCH (25.0-34.0) pg MCHC (32.0-36.0) g/dL RDW Std Deviation (36.4-46.3) fL RDW Coeff of Nima (11.5-14.5) % Plt Count (130-400) K/uL MPV (9.4-12.4) fL Immature Gran % (Auto) % Neut % (Auto) % Lymph % (Auto) % Lewis % (Auto) % Eos % (Auto) % Baso % (Auto) % Neut # (Auto) (1.40-6.50) K/uL Lymph # (Auto) (1.20-3.40) K/uL Lewis # (Auto) (0.11-0.59) K/uL Eos # (Auto) (0.00-0.50) K/uL Baso # (Auto) (0.00-0.20) K/uL Immature Gran # (Auto) (0.01-0.20) K/uL PT (9.0-12.0) Seconds INR (0.9-1.1) APTT (21-31) Seconds PTT Ratio Sodium (136-145) mmol/L Potassium (3.5-5.1) mmol/L Chloride (98-107) mmol/L Carbon Dioxide (21-32) mmol/L Anion Gap (3-11) BUN (6-23) mg/dl Creatinine (0.6-1.4) mg/dl Est Cr Clr Drug Dosing eGFR BUN/Creatinine Ratio (10-20) Glucose (70-99(Fasting)) mg/dl Calcium (8.6-10.3) mg/dl Magnesium (1.7-2.4) mg/dl Total Bilirubin (0.2-1.0) mg/dl AST (13-39) U/L ALT (7-52) U/L Alkaline Phosphatase (34-104) U/L Troponin I High Sens (0-20) pg/ml B-Natriuretic Peptide 222 H (0-100) pg/ml Total Protein (6.0-8.3) gm/dl Albumin (3.4-5.0) gm/dl Globulin (2.5-4.0) gm/dl Albumin/Globulin Ratio (0.9-2) Lipase (11-82) U/L Adenovirus (PCR) (NotDetected) B. pertussis DNA (PCR) (NotDetected) B.parapertussis DNA PCR (NotDetected) C. pneumoniae DNA (PCR) (NotDetected) Coronavirus OC43 (PCR) (NotDetected) Coronavirus HKU1 (PCR) (NotDetected) Coronavirus 229E (PCR) (NotDetected) SARS-CoV-2 (PCR) (NotDetected) Coronavirus NL63 (PCR) (NotDetected) Human Metapneumovir PCR (NotDetected) Influenza Type A (PCR) (NotDetected) Influenza Type B (PCR) (NotDetected) M. pneumoniae (PCR) (NotDetected) Parainfluenza 1 (PCR) (NotDetected) Parainfluenza 2 (PCR) (NotDetected) Parainfluenza 3 (PCR) (NotDetected) Parainfluenza 4 (PCR) (NotDetected) RSV (PCR) (NotDetected) Entero/Rhino (PCR) (NotDetected) Administered Medications Allopurinol (Allopurinol 300 Mg Tab) 300 mg PO HS KEITH Stop: 03/21/25 20:59 Last Admin: 02/19/25 21:03 Dose: 300 mg Documented By: sreekanth Atorvastatin Calcium (Atorvastatin 40 Mg Tab) 40 mg PO HS KEITH Stop: 03/21/25 20:59 Last Admin: 02/19/25 21:05 Dose: 40 mg Documented By: sreekanth Clopidogrel Bisulfate (Clopidogrel Bisulfate 75 Mg Tab) 75 mg PO HS KEITH Stop: 03/21/25 20:59 Last Admin: 02/19/25 21:05 Dose: 75 mg Documented By: sreekanth Finasteride (Finasteride 5 Mg Tab) 5 mg PO HS KEITH Stop: 03/21/25 20:59 Last Admin: 02/19/25 21:03 Dose: 5 mg Documented By: sreekanth Magnesium Sulfate/Dextrose (Magnesium Sulfate / D5w) 1 gm in 100 mls @ 50 mls/hr IV Q2H KEITH Stop: 02/19/25 22:29 Last Admin: 02/19/25 21:02 Dose: 50 mls/hr Documented By: sreekanth Infusion: 02/19/25 20:56 Dose: Infused Documented By: sreekanth Admin: 02/19/25 18:56 Dose: 50 mls/hr Documented By: MARLON Insulin Aspart (Insulin Aspart Per Unit Charge) 0 units SC ACHS KEITH Stop: 03/21/25 20:59 Last Admin: 02/19/25 20:45 Dose: Not Given Documented By: [email or web address] Co-signed By: ACO Metoprolol Succinate (Metoprolol Succ 50mg Ext Rel Tab) 100 mg PO HS KEITH Stop: 03/21/25 20:59 Last Admin: 02/19/25 21:04 Dose: 100 mg Documented By: sreekanth Pantoprazole Sodium (Pantoprazole 40 Mg Tab) 40 mg PO HS KEITH Stop: 03/21/25 20:59 Last Admin: 02/19/25 21:05 Dose: 40 mg Documented By: sreekanth Sucralfate (Sucralfate 1 Gm Tab) 1 gm PO QID KEITH Stop: 03/21/25 20:59 Last Admin: 02/19/25 21:04 Dose: 1 gm Documented By: sreekanth Discontinued Medications Aspirin (Aspirin 81 Mg Chew) 324 mg PO NOW STA Stop: 02/19/25 14:31 Last Admin: 02/19/25 14:35 Dose: 324 mg Documented By: MICHAEL Magnesium Sulfate/Dextrose (Magnesium Sulfate / D5w) 1 gm in 100 mls @ 100 mls/hr IV NOW STA Stop: 02/19/25 15:02 Last Infusion: 02/19/25 16:37 Dose: Infused Documented By: Admin: 02/19/25 14:16 Dose: 100 mls/hr Documented By: MICHAEL Imaging Data Radiologist's Impression: Chest X-Ray 02/19/25 13:21 XR chest 2V PA/lateral CLINICAL HISTORY: Chest pain, nonspecific COMPARISON STUDY: 11/13/2024 FINDINGS: Heart size and pulmonary vasculature are normal. No consolidation or pleural effusion. No pneumothorax. IMPRESSION: No acute findings. ACT 112: Negative or not required by law. Electronically signed by: Wei Nguyen M.D. 02/19/2025 1:49 PM Discharge Plan Visit Data Chief Complaint: Cardiac Assessment Stated Complaint: HEART ISSUES ED Provider: Tawnya Juares ED Midlevel Provider: Elizabeth Goldstein Discharge Problem: Elevated troponin, Hypomagnesemia Patient Disposition: Admitted As Inpatient Condition: Good Discharge Instructions Interventions: ED Discharge Assessment Last Done: 02/19/25 19:59
[2025-02-19 16:05] LABS: Chlamydia pneumoniae PCR Not Detected (NotDetected); Coronavirus 229E PCR Not Detected (NotDetected); Coronavirus CoV-2 (COVID19)PCR Not Detected (NotDetected); Coronavirus HKU1 PCR Not Detected (NotDetected); Coronavirus NL63 PCR Not Detected (NotDetected); Coronavirus OC43PCR Not Detected (NotDetected); Human Metapneumovirus PCR Not Detected (NotDetected); Parainfluenza Virus 1 PCR Not Detected (NotDetected); Parainfluenza Virus 2 PCR Not Detected (NotDetected); Parainfluenza Virus 3 PCR Not Detected (NotDetected); Parainfluenza Virus 4 PCR Not Detected (NotDetected); Respiratory Syncytial VirusPCR Not Detected (NotDetected); Rhinovirus/Enterovirus PCR Not Detected (NotDetected)
--- NOTE | 2025-02-19 16:15 | History & Physical Report ---
Date of Service February 19, 2025 Assessment & Plan (1) NSTEMI (non-ST elevated myocardial infarction): (2) Elevated troponin: (3) GERD (gastroesophageal reflux disease): (4) Hypomagnesemia: (5) Diabetes mellitus, type 2: (6) Atrial fibrillation: (7) Hypertension: (8) Hyperlipidemia: (9) BPH (benign prostatic hyperplasia): (10) Gout: (11) Sleep apnea: Plan 74 year old male with PMH significant for type 2 diabetes with polyneuropathy, gouty arthropathy, dyslipidemia, allergic rhinitis, ROGER on CPAP, COPD, PAF, venous insufficiency, hypertension, CAD s/p RCA stent (2023), morbid obesity, GERD and BPH who presents to the ED on 02/19/2025 with SOB and indigestion ni ghtly x4 nights. Elevated troponin NSTEMI Troponin 180 repeat 188 Trend q6hr EKG without significant ST changes Received 325mg ASA in ED Cardiology consulted and recommending: --Continue his beta munir, Plavix, ASA for now and Bumex. HOLD his Eliquis for now --If enymes cont to increase-IV heparin, but now bolus. --Keep NPO post midnight for right and left cath with Dr. Taveras. --Pt will need respiratory to set up his CPAP for tonight. --Await cath --recheck ECHO in am Chest pain GERD Patient presenting with indigestion associated with SOB and indigestion CXR and biofire negative Continue PPI and carafate recently prescribed PRN maalox Hypomagnesemia Mag 1.4 on admission Replete and recheck in am Type 2 diabetes Home metformin and Ozempic on hold Hold home am lantus due to NPO at midnight BSG ACHS and SSI while inpatient CAD s/p RCA stent Dyslipidemia Continue plavix and statin Atrial fibrillation Continue metoprolol Hold Eliquis as above Hypertension Continue fosinopril and bumetanide BPH Continue finasteride and tamsulosin Gout Continue allopurinol Osteoarthritis Continue tramadol ROGER Continue home CPAP DVT Prophylaxis: Eliquis on hold; SCDs Code Status: FULL CODE - As per discussion at bedside with the patient. PCP: Dario Galloway Disposition: admit to [facility] Patient seen in collaboration with Dr Cobian. Please see addendum. I spent a total of 75 minutes coordinating, documenting and providing care for this patient excluding time spent in the performance of separately billed services or time spent by another provider/QHP. Admission and Anticipated Discharge Date Admission Date: 02/19/2025 History of Present Illness Chief Complaint: SOB Primary Care Provider: Dario Galloway MD 74 year old male with PMH significant for type 2 diabetes with polyneuropathy, gouty arthropathy, dyslipidemia, allergic rhinitis, ROGER on CPAP, COPD, PAF, venous insufficiency, hypertension, CAD s/p RCA stent, morbid obesity, GERD and BPH who presents to the ED on 02/19/2025 with SOB and indigestion nightly x4 nights. Patient reports that for the last four nights, he has developed severe indigestion where he describes his sternum as raw which causes SOB and diaphoresis. The symptoms start 1-2 hours after he takes his evening medicine. He reports that tums and use of his CPAP relieves the indigestion. He was seen via telemedicine yesterday for these symptoms and prescribed omeprazole and carafate. He took one dose of each medicine last night but still had the indigestion and SOB. He called his Medical Technologist Hematology, Dr. Carmelita Negron, who he has followed with since his NSTEMI and cardiac cath last year, who advised that he be seen in the ED. Upon evaluation patient denies current symptoms. Denies fevers, chills, cough, chest pain, SOB, abdominal pain, N/V/D, dysuria. Allergies Allergy/AdvReac Type Severity Reaction Status Date / Time Sulfa (Sulfonamide AdvReac Intermediate Gastrointestinal Verified 01/17/24 01:23 Antibiotics) Upset Home Medications Medication Instructions Recorded Confirmed Type atorvastatin 40 mg tablet 40 mg PO HS 03/07/18 02/19/25 History fosinopril 40 mg tablet 40 mg PO QAM 03/07/18 02/19/25 History insulin glargine 100 unit/mL 100 unit subcut QAM 03/07/18 02/19/25 History subcutaneous solution (Lantus U-100 Insulin) nitroglycerin 0.4 mg sublingual 0.4 mg sublingual DIRECTED PRN 03/07/18 02/19/25 History tablet (Nitrostat) Chest Pain tamsulosin 0.4 mg capsule (Flomax) 0.4 mg PO QAM 03/07/18 02/19/25 History tramadol 50 mg tablet 50 mg PO BID PRN Pain 03/07/18 02/19/25 History albuterol sulfate 90 mcg/actuation 2 puff inhalation QID PRN 12/23/18 02/19/25 History aerosol inhaler (Ventolin HFA) Shortness Of Breath allopurinol 300 mg tablet 300 mg PO HS 12/23/18 02/19/25 History cyanocobalamin (vitamin B-12) 1,000 mcg PO 3XWK 01/17/24 02/19/25 History 1,000 mcg tablet (Vitamin B-12) finasteride 5 mg tablet 5 mg PO HS 01/17/24 02/19/25 History metformin 500 mg tablet,extended 500 mg PO BID 01/17/24 02/19/25 History release 24 hr semaglutide 2 mg/dose (8 mg/3 mL) 2 mg subcut WK 01/17/24 02/19/25 History subcutaneous pen injector (Ozempic) apixaban 5 mg tablet (Eliquis) 5 mg PO BID 11/13/24 02/19/25 History bumetanide 2 mg tablet 1.5 mg PO QAM 11/13/24 02/19/25 History clopidogrel 75 mg tablet 75 mg PO HS 11/13/24 02/19/25 History metoprolol succinate 100 mg 100 mg PO HS 02/19/25 02/19/25 History tablet,extended release 24 hr omeprazole 20 mg capsule,delayed 20 mg PO HS 02/19/25 02/19/25 History release sucralfate 1 gram tablet 1 g PO QID 02/19/25 02/19/25 History Past Med/Surg History Problem List (Updated 02/19/25 @ 18:28 by KAMRAN Ríos) Hypomagnesemia GERD (gastroesophageal reflux disease) Elevated troponin Diastolic CHF due to valvular disease Aortic stenosis Dyslipidemia, goal LDL below 70 Hypertension Chronic atrial fibrillation NSTEMI (non-ST elevated myocardial infarction) Hyperglycemia due to diabetes mellitus (Acute) Substernal chest pain (Acute) Osteoarthritis of both knees Encounter for pre-operative examination Diabetes (Chronic) New onset a-fib New onset a-fib Medical History (Updated 02/19/25 @ 18:28 by KAMRAN Ríos) Morbid obesity History of colon polyps Gout BPH (benign prostatic hyperplasia) Diabetes mellitus, type 2 On anticoagulant therapy pradaxa bid Hyperlipidemia Shortness of breath on exertion reason for inhaler Sleep apnea cpap Atrial fibrillation reason for pradaxa and follows with Dr. Jang Surgical History Hx of right inguinal hernia repair History of colonoscopy History of tooth extraction History of wisdom tooth extraction History of cardioversion x2 @ [facility]--not successful Family History Father Family history of diabetes mellitus Brother Family history of diabetes mellitus Family hx colonic polyps Other No family history of adverse response to anesthesia Social History Smoking Status: Never smoker Second Hand Exposure: Yes (father smoked); Hx Alcohol Use: No Hx Substance Use: No Preferred Language: Khmer Communication Ability: Effective Stave Block Roller Required: No Beliefs That Will Affect Care: None marital status: Current Living Situation: Spouse and Family Current Living Situation Comment: Lives with and 1 son and 1 daughter current occupational status: retired Feels Safe at Home: Yes Assistive Devices: Brace/Splint/Immobilizer, CPAP, Glasses, Scooter/Electric Scooter, Walker and Wheelchair Review of Systems Review of Systems: All systems reviewed & are unremarkable except as noted in HPI & below Physical Exam Physical Exam: Refer to exam by Dr Cobian Results & Data Results & Data Vital Signs (Past 12 Hours) Vital Signs Temp Pulse Resp BP Pulse Ox O2 Del Method 02/19/25 13:47 91 H 02/19/25 12:42 36.6 C 88 18 119/70 99 Room Air Laboratory Results Short CBC 02/19/25 Range/Units 12:55 WBC 11.44 H (4.8-10.8) K/ul Hgb 12.7 L (14.0-18.0) g/dl Hct 38.8 L (42.0-52.0) % Plt Count 255 (130-400) K/uL BMP 02/19/25 12:55 Sodium 138 Potassium 4.5 Chloride 102 Carbon Dioxide 28 BUN 15 Creatinine 0.86 Glucose 215 H Calcium 9.3 Liver Function 02/19/25 Range/Units 12:55 Total Bilirubin 0.6 (0.2-1.0) mg/dl AST 16 (13-39) U/L ALT 11 (7-52) U/L Alkaline Phosphatase 88 (34-104) U/L Albumin 3.4 (3.4-5.0) gm/dl I have independently reviewed and interpreted patient's admitting labs including CBC, CMP, PTT, PT/INR, mag, troponin, BNP, lipase. Diagnostic Findings Chest X-Ray 02/19/25 13:21 XR chest 2V PA/lateral CLINICAL HISTORY: Chest pain, nonspecific COMPARISON STUDY: 11/13/2024 FINDINGS: Heart size and pulmonary vasculature are normal. No consolidation or pleural effusion. No pneumothorax. IMPRESSION: No acute findings. ACT 112: Negative or not required by law. Electronically signed by: Wei Nguyen M.D. 02/19/2025 1:49 PM ECG Additional Comments: I have independently reviewed and interpreted patient's admitting EKG which revealed: atrial fibrillation at a rate of 86bpm Code Status & VTE Plan Code Status Full Code Supervising Physician Co-Signing Physician Notes Presents with feeling of "rawness in throat" at night for past 4 days. Initial 2 days resolved with tums. The last 2 days episode were associated with SOB and improved with using his CPAP reported that last 2 nights, he was SOB and clammy Was recently started on PPI and carafate in the past 2 days for symptoms She called his Medical Technologist Hematology and was asked to come to ER. On exam General: Not in distress, obese Eyes: PERRL, conjunctivae normal, not pale, anicteric sclerae, EOM intact bilaterally ENMT: External ear and nose normal, oropharynx normal Respiratory: Not in resp distress, on room air, CTA b/l Cardiovascular: Irregularly irregular S1 S2 Gastrointestinal (Abdomen): Abdomen is not distended, soft, non-tender to palpation, normal bowel sounds Musculoskeletal: B/l pitting pedal edema Neurologic: Alert and oriented x 3, No focal weakness Psychiatric: Normal mood and affect Labs notable for Trop of 180, BNP 222, Mg 1.4, Glucose 215, WBC 11.22, Hb 12.7 CXR did not show any acute findings Trend trop Cards consult Keep NPO PMN Hold DIRECTOR OF TESTING metformin. ISS/lantus for now Continue other DIRECTOR OF TESTING home meds Other plans as detailed by Jaimee ANDREW (7) Hypertension Hypertension type: primary hypertension Qualified Code(s): I10 - Essential (primary) hypertension
--- NOTE | 2025-02-19 17:49 | Cardiology Consultation ---
Date of Consultation February 19, 2025 Assessment & Plan (1) NSTEMI (non-ST elevated myocardial infarction): (2) Aortic stenosis: (3) Chronic atrial fibrillation: (4) Dyslipidemia, goal LDL below 70: (5) Diastolic CHF due to valvular disease: Plan Continue his betablocker, Plavix ASA for now and Bumex. HOLD his Eliquis for now If enymes cont to increase-IV heparin, but now bolus. Keep NPO post midnight for right and left cath with Dr. Taveras. Pt will need respiratory to set up his CPAP for tonight. Await cath recheck ECHO in am History of Present Illness Reason for Consultation: NSTEMI Requesting Physician: ER Attending Physician: Dr. Dario Galloway is primary History of Present Illness Patient is a very nice 74 y/o man well known to me from his NSTEMI 12/2023. He was initially treated by Dr. Thomas and performed CBI of his RCA. The interven tion was difficult and the patient was subsequently transferred to [facility] for additional intervention. He has prox mid and distal disease treated with 3 Xience LUCA as well as atherectomy, intravascular lithotripsy and IVUS. Initially was on dabigatran 150mg bid x 1 week and then Brilinta x 3 months but this was changed to clopidogrel due to debilitating SOB. In addition, at the time of the initial event was noted to have aortic murmur with moderate . His was slightly worse when I saw him in September with peak velocities of 3.5msec and peak and mean gradients of 48/25mmHg. His SOB was at his baseline when I saw in September. He now presents with increased nocturnal symptoms starting about a week ago with a burning sensation in his chest-initially he was taking TuMS. About 3 nights ago started getting PND, orthopnea associated with diaphoresis. He felt better when using his CPAP. He called the office this am and advised to present to ER. ECG with chronic persistent Afib, baseline ST changes similar to prior ECG. Troponin 180. BNP 222 He has been on Eliquis-took last dose this am. Discussed with patient cardiac cath to redefine his anatomy as well as assess the aortic stenosis. He and his family are agreeable. Case discussed with electrical laboratory technician and Dr. Taveras. Plan on cath tomorrow. Will hold Eliquis. Cont Plavix. If Trop cont to increase overnight-consider IV heparin without a bolus. Allergies Allergy/AdvReac Type Severity Reaction Status Date / Time Sulfa (Sulfonamide AdvReac Intermediate Gastrointestinal Verified 01/17/24 01:23 Antibiotics) Upset Home Medications Medication Instructions Recorded Confirmed Type atorvastatin 40 mg tablet 40 mg PO HS 03/07/18 02/19/25 History fosinopril 40 mg tablet 40 mg PO QAM 03/07/18 02/19/25 History insulin glargine 100 unit/mL 100 unit subcut QAM 03/07/18 02/19/25 History subcutaneous solution (Lantus U-100 Insulin) nitroglycerin 0.4 mg sublingual 0.4 mg sublingual DIRECTED PRN 03/07/18 02/19/25 History tablet (Nitrostat) Chest Pain tamsulosin 0.4 mg capsule (Flomax) 0.4 mg PO QAM 03/07/18 02/19/25 History tramadol 50 mg tablet 50 mg PO BID PRN Pain 03/07/18 02/19/25 History albuterol sulfate 90 mcg/actuation 2 puff inhalation QID PRN 12/23/18 02/19/25 H istory aerosol inhaler (Ventolin HFA) Shortness Of Breath allopurinol 300 mg tablet 300 mg PO HS 12/23/18 02/19/25 History cyanocobalamin (vitamin B-12) 1,000 mcg PO 3XWK 01/17/24 02/19/25 History 1,000 mcg tablet (Vitamin B-12) finasteride 5 mg tablet 5 mg PO HS 01/17/24 02/19/25 History metformin 500 mg tablet,extended 500 mg PO BID 01/17/24 02/19/25 History release 24 hr semaglutide 2 mg/dose (8 mg/3 mL) 2 mg subcut WK 01/17/24 02/19/25 History subcutaneous pen injector (Ozempic) apixaban 5 mg tablet (Eliquis) 5 mg PO BID 11/13/24 02/19/25 History bumetanide 2 mg tablet 1.5 mg PO QAM 11/13/24 02/19/25 History clopidogrel 75 mg tablet 75 mg PO HS 11/13/24 02/19/25 History metoprolol succinate 100 mg 100 mg PO HS 02/19/25 02/19/25 History tablet,extended release 24 hr omeprazole 20 mg capsule,delayed 20 mg PO HS 02/19/25 02/19/25 History release sucralfate 1 gram tablet 1 g PO QID 02/19/25 02/19/25 History Patient History Medical History (Updated 02/19/25 @ 17:46 by Carmelita Negron DO) Morbid obesity History of colon polyps Gout BPH (benign prostatic hyperplasia) Diabetes mellitus, type 2 On anticoagulant therapy pradaxa bid Hyperlipidemia Shortness of breath on exertion reason for inhaler Sleep apnea cpap Atrial fibrillation reason for pradaxa and follows with Dr. Jang Surgical History Hx of right inguinal hernia repair History of colonoscopy History of tooth extraction History of wisdom tooth extraction History of cardioversion x2 @ [facility]--not successful Family History Father Family history of diabetes mellitus Brother Family history of diabetes mellitus Family hx colonic polyps Other No family history of adverse response to anesthesia Social History Smoking Status: Never smoker Second Hand Exposure: Yes (father smoked); Hx Alcohol Use: No Hx Substance Use: No Preferred Language: Azeri Communication Ability: Effective Commutator Undercutter Required: No Beliefs That Will Affect Care: None marital status: Current Living Situation: Spouse and Family Current Living Situation Comment: Lives with and 1 son and 1 daughter current occupational status: retired Feels Safe at Home: Yes Assistive Devices: Brace/Splint/Immobilizer, CPAP, Glasses, Scooter/Electric Scooter, Walker and Wheelchair Review of Systems Review of Systems: All systems reviewed & are unremarkable except as noted in HPI & below Physical Exam Physical Exam: AAO x 3 in NAD ENMT: no JVD Respiratory: lungs CTA Cardiovascular: Grade 3/6 Crescendo-decrescendo murmur-sounds somewhat high pitched +2 edema Results & Data Vital Signs (Past 12 Hours) Vital Signs Temp Pulse Resp BP Pulse Ox O2 Del Method 02/19/25 16:32 76 20 100 02/19/25 16:29 75 15 100 02/19/25 15:41 77 19 02/19/25 15:20 77 20 02/19/25 13:47 91 H 02/19/25 12:42 36.6 C 88 18 119/70 99 Room Air Laboratory Results Abnormal lab results 02/19/25 02/19/25 02/19/25 Range/Units 12:55 15:47 15:52 WBC 11.44 H (4.8-10.8) K/ul RBC 4.33 L (4.70-6.10) M/uL Hgb 12.7 L (14.0-18.0) g/dl Hct 38.8 L (42.0-52.0) % RDW Std Deviation 46.9 H (36.4-46.3) fL RDW Coeff of Nima 14.6 H (11.5-14.5) % Neut # (Auto) 7.51 H (1.40-6.50) K/uL [place] # (Auto) 0.72 H (0.11-0.59) K/uL Glucose 215 H (70-99(Fasting)) mg/dl Magnesium 1.4 L (1.7-2.4) mg/dl Troponin I High Sens 180.7 H* 188.0 H* (0-20) pg/ml B-Natriuretic Peptide 222 H (0-100) pg/ml (2) Aortic stenosis Cardiac valve disease etiology: nonrheumatic Qualified Code(s): I35.0 - Nonrheumatic aortic (valve) stenosis
[2025-02-19] MEDS: MAGNESIUM SULFATE / D5W 1 GM/100 ML BAG IV SCH (18:56)
[2025-02-19] MEDS ORDERED: GLUCAGON FOR INJ 1 MG VIAL SQ PRN (20:24)
[2025-02-19] MEDS ORDERED: ALUMINUM/MAGNESIUM SUSP 30 ML UDC PO PRN (20:24)
[2025-02-19] MEDS ORDERED: GLUCOSE 40% GEL 15 GM TUBE PO PRN (20:24)
[2025-02-19] MEDS ORDERED: DEXTROSE 50% 50 ML SYRINGE IV PRN (20:24)
[2025-02-19] MEDS ORDERED: GLUCOSE 10 TAB/TUBE PO PRN (20:24)
[2025-02-19] MEDS ORDERED: POLYETHYLENE (MIRALAX) 17 GM PACK PO PRN (20:24)
[2025-02-19] MEDS ORDERED: ONDANSETRON INJ 2 MG/ML 2 ML VIAL IV PRN (20:24)
[2025-02-19] MEDS ORDERED: CARBOHYDRATES FOR HYPOGLYCEMIA PO PRN (20:24)
[2025-02-19] MEDS ORDERED: ACETAMINOPHEN 325 MG TAB PO PRN (20:24)
[2025-02-19] MEDS: INSULIN ASPART PER UNIT CHARGE SC SCH (20:45)
[2025-02-19 20:53] LABS: Appearance Urine Clear (Clear); Bacteria Urine Automated None Seen (None Seen); Cast Urine Automated 0-2 /lpf (0-2); Epithelial Cell Urine Auto 0-2 /hpf (0-2); Glucose Urine UA Negative (Negative); RBC Urine Automated >20 /hpf (0-2); WBC Urine Automated 0-5 /hpf (0-5)
[2025-02-19] MEDS: FINASTERIDE 5 MG TAB PO SCH (21:03)
[2025-02-19] MEDS: METOPROLOL SUCC 50MG EXT REL TAB PO SCH (21:04)
[2025-02-19] MEDS: SUCRALFATE 1 GM TAB PO SCH (21:04)
[2025-02-19] MEDS: CLOPIDOGREL BISULFATE 75 MG TAB PO SCH (21:05)
[2025-02-19] MEDS: ATORVASTATIN 40 MG TAB PO SCH (21:05)
[2025-02-19] MEDS ORDERED: Nursing to Pharmacy Communication SCH (23:45)
[2025-02-20] MEDS: INSULIN ASPART PER UNIT CHARGE SC SCH ×2 (00:36→21:48)
[2025-02-20 05:06] LABS: Hematocrit (blood only) 36.2 % (42.0-52.0); Hemoglobin 11.7 g/dl (14.0-18.0); Mean Corpuscular Hemoglobin 29.0 pg (25.0-34.0); Mean Corpuscular Volume 89.8 fL (80.0-100.0); Platelet Count 235 K/uL (130-400); RDW Standard Deviation 48.1 fL (36.4-46.3); Red Blood Count 4.03 M/uL (4.70-6.10); White Blood Count 11.20 K/ul (4.8-10.8)
[2025-02-20 05:21] LABS: Anion Gap 6.0 (3-11); Blood Urea Nitrogen 13.0 mg/dl (6-23); Calcium 8.7 mg/dl (8.6-10.3); Carbon Dioxide 27.0 mmol/L (21-32); Chloride 104.0 mmol/L (98-107); Creatinine Clr Calc Pharmacy 125.4 ml/min; Glucose 141.0 mg/dl (70-99(Fasting)); Magnesium 1.8 mg/dl (1.7-2.4); Potassium 4.3 mmol/L (3.5-5.1); Sodium 137.0 mmol/L (136-145)
[2025-02-20] MEDS: TAMSULOSIN HCL 0.4 MG CAP PO SCH (09:14)
[2025-02-20] MEDS: BUMETANIDE 1 MG TAB PO SCH (09:14)
--- NOTE | 2025-02-20 09:19 | Cardiology Progress Note ---
Date of Service February 20, 2025 Assessment & Plan (1) NSTEMI (non-ST elevated myocardial infarction): (2) Aortic stenosis: (3) Chronic atrial fibrillation: (4) Dyslipidemia, goal LDL below 70: (5) Diastolic CHF due to valvular disease: Plan Mr. Elam feels pretty good this morning. He is without anginal symptoms. He is very sedentary and gets around in a cart at home so changes to his functional capacity are difficult to define. He only has chest discomfort at [facility], never during the day. Continue his beta munir, Plavix, ASA and Bumex. Kori is held for his cardiac catheterization this morning. His troponins have stayed stable in the 180s. He did not have any chest pain overnight or this morning. He attributes this to putting his cpap on early. He has an echo pending. His is moderate. He had preserved LV function. A right cath is planned as well as left today to check pressures. His blood pressure is controlled. He is in permanent afib. His rates are controlled. Admission and Anticipated Discharge Date Admission Date: February 19, 2025 Subjective Mr. Elam did not have any chest pain over night and notes that he feels pretty good this morning. He does describe a very sedentary lifestyle with activity significantly limited by shortness of breath, ongoing for many years. He does not think his dyspnea is any worse than typical. He has chronic lower extremity edema which he feels is at his baseline this morning. Review of Systems Review of Systems: All systems reviewed & are unremarkable except as noted in HPI & below Physical Exam Constitutional: WD/WN, vitals as above Cardiovascular: Rate/Rhythm: + abnormal rate and + abnormal rhythm Heart Sounds: + murmur (right upper sternal border 2/6 systolic murmur ) Extremities: + edema (bilateral LE pitting edema ) Skin: no rashes, warm and dry Neurologic: moves all extremities and awake Psychiatric: A+Ox3, euthymic affect Results & Data Vital Signs (Past 12 Hours) Vital Signs Temp Pulse Pulse Resp BP BP Pulse Ox 02/20/25 08:08 36.5 C 69 18 124/84 99 02/20/25 06:57 79 02/20/25 03:40 36.5 C 82 18 107/75 96 02/19/25 23:21 36.6 C 84 18 110/74 98 02/19/25 21:47 96 H O2 Del Method 02/20/25 08:08 Room Air 02/20/25 06:57 02/20/25 03:40 Room Air, CPAP 02/19/25 23:21 Room Air, CPAP 02/19/25 21:47 (2) Aortic stenosis Cardiac valve disease etiology: nonrheumatic Qualified Code(s): I35.0 - Nonrheumatic aortic (valve) stenosis
--- NOTE | 2025-02-20 11:49 | Hospitalist Progress Note ---
Date of Service February 20, 2025 Assessment & Plan (1) NSTEMI (non-ST elevated myocardial infarction): (2) Elevated troponin: (3) GERD (gastroesophageal reflux disease): (4) Hypomagnesemia: (5) Diabetes mellitus, type 2: (6) Atrial fibrillation: (7) Hypertension: (8) Hyperlipidemia: (9) BPH (benign prostatic hyperplasia): (10) Gout: (11) Sleep apnea: Plan 74 year old male with PMH significant for type 2 diabetes with polyneuropathy, gouty arthropathy, dyslipidemia, allergic rhinitis, ROGER on CPAP, COPD, PAF, venous insufficiency, hypertension, CAD s/p RCA stent (2023), morbid obesity, GERD and BPH who presents to the ED on 02/19/2025 with SOB and indigestion ni ghtly x4 nights. NSTEMI Patient presented with chest discomfort for several days at night Troponin 180 repeat 188 and stable EKG shows sinus rhythm without significant ST changes Received 325mg ASA in ED Cardiology consulted; plan for cardiac cath today Continue on plavix, lipitor, metoprolol, lisinopril Chest pain GERD Patient presenting with indigestion associated with SOB and indigestion CXR and biofire negative Continue PPI and carafate recently prescribed PRN maalox Hypomagnesemia- repleted Type 2 diabetes Home metformin and Ozempic on hold Hold home am lantus due to NPO at midnight BSG ACHS and SSI while inpatient CAD s/p RCA stent Dyslipidemia Continue plavix and statin Atrial fibrillation Continue metoprolol Hold Eliquis for now Hypertension Continue fosinopril and bumetanide BPH Continue finasteride and tamsulosin Gout Continue allopurinol Osteoarthritis Continue tramadol ROGER Continue home CPAP DVT Prophylaxis: Eliquis on hold; SCDs Code Status: FULL CODE - As per discussion at bedside with the patient. PCP: Dario Galloway Disposition: admit to [facility] tele Time spent evaluating patient, direct bedside care, chart review, placing orders, interpretation of diagnostic studies, discussion with consultants, patient, and family members, as well as other required patient management activities is 50 minutes Please note the above document was generated using voice recognition software. It may contain grammatical, syntax or spelling errors. Any formal questions or concerns about the content, text or information contained within the body of this dictation should be directly addressed to the provider for clarification Admission and Anticipated Discharge Date Admission Date: February 19, 2025 Subjective Patient seen and examined at bedside. He is comfortable; not in distress. He denies any chest pain or discomfort overnight and today morning. He denies any increasing shortness of breath. Review of Systems Review of Systems: All systems reviewed & are unremarkable except as noted in Subjective Physical Exam Physical Exam: Constitutional: AO X3, comfortable, not in any distress Respiratory: normal respiratory effort, lungs clear to auscultation, no wheeze, rales, rhonchi. Normal insp/exp effort, no accessory muscle use Cardiovascular: RRR, no murmur, no edema Vessels: no JVD or carotid bruit Chest: normal inspection of chest Abdomen: normal bowel sounds, soft, nontender, no hepatosplenomegaly Musculoskeletal: no cyanosis or clubbing, extremities motor strength 5/5 Skin: no rashes, warm and dry normal turgor Neurologic: PERRL, EOMI, accommodation nl, no face palsy, no dysarthria CN's II- XI intact bilaterally and moves all extremities Psychiatric: A+Ox3, euthymic affect Results & Data Results & Data Vital Signs (Past 12 Hours) Vital Signs Temp Pulse Pulse Resp BP BP Pulse Ox 02/20/25 11:37 36.6 C 99 H 16 107/67 95 02/20/25 11:03 02/20/25 08:08 36.5 C 69 18 124/84 99 02/20/25 06:57 79 02/20/25 03:40 36.5 C 82 18 107/75 96 O2 Del Method 02/20/25 11:37 Room Air 02/20/25 11:03 Room Air 02/20/25 08:08 Room Air 02/20/25 06:57 02/20/25 03:40 Room Air, CPAP (7) Hypertension Hypertension type: primary hypertension Qualified Code(s): I10 - Essential (primary) hypertension
--- NOTE | 2025-02-20 14:04 | Pre Anesthesia Assessment ---
Date of Service February 20, 2025 Pre Sedation Assessment Vital Signs Temp Pulse Pulse Resp BP BP BP 02/20/25 13:00 93 H 18 139/87 02/20/25 11:37 97.9 F 99 H 16 107/67 02/20/25 11:03 02/20/25 08:08 97.7 F 69 18 124/84 02/20/25 06:57 79 02/20/25 03:40 97.7 F 82 18 107/75 02/19/25 23:21 97.9 F 84 18 110/74 02/19/25 21:47 96 H 02/19/25 20:33 97.5 F L 97 H 124/76 02/19/25 20:30 113 H 02/19/25 20:20 02/19/25 19:59 02/19/25 19:30 80 15 02/19/25 19:30 122/77 02/19/25 19:30 122/77 02/19/25 19:09 67 19 02/19/25 19:00 125/79 02/19/25 18:48 88 22 02/19/25 18:36 76 15 02/19/25 18:30 130/81 02/19/25 18:24 68 15 02/19/25 18:03 76 24 02/19/25 18:00 116/89 02/19/25 18:00 116/89 02/19/25 18:00 116/89 02/19/25 17:54 78 17 02/19/25 17:37 69 18 120/65 02/19/25 17:33 83 17 02/19/25 17:30 120/65 02/19/25 17:27 76 17 02/19/25 17:19 132/74 02/19/25 17:19 132/74 02/19/25 17:19 132/74 02/19/25 17:05 82 18 02/19/25 16:32 76 20 02/19/25 16:29 75 15 02/19/25 15:41 77 19 02/19/25 15:20 77 20 Pulse Ox O2 Del Method 02/20/25 13:00 97 Room Air 02/20/25 11:37 95 Room Air 02/20/25 11:03 Room Air 02/20/25 08:08 99 Room Air 02/20/25 06:57 02/20/25 03:40 96 Room Air, CPAP 02/19/25 23:21 98 Room Air, CPAP 02/19/25 21:47 02/19/25 20:33 99 Room Air 02/19/25 20:30 02/19/25 20:20 Room Air, CPAP 02/19/25 19:59 Room Air 02/19/25 19:30 99 02/19/25 19:30 02/19/25 19:30 02/19/25 19:09 98 02/19/25 19:00 02/19/25 18:48 94 02/19/25 18:36 96 02/19/25 18:30 02/19/25 18:24 98 02/19/25 18:03 98 02/19/25 18:00 02/19/25 18:00 02/19/25 18:00 02/19/25 17:54 98 02/19/25 17:37 98 Room Air 02/19/25 17:33 98 02/19/25 17:30 02/19/25 17:27 99 02/19/25 17:19 02/19/25 17:19 02/19/25 17:19 02/19/25 17:05 99 02/19/25 16:32 100 02/19/25 16:29 100 02/19/25 15:41 02/19/25 15:20 Cardiovascular + regular rate Respiratory + respiratory effort normal Pre-Sedation Airway Assessment Smoking Status: Never smoker Hx Sleep Apnea: No Short, Thick Neck: No Thyromental Distance: > or= 3.5 Finger Breadths Oral Cavity: + WNL Mallampati Class: III ASA: ASA3 NPO Status Date of Last Intake of Fluids: 02/19/25 Time of Last Intake of Fluids: 23:00 Date of Last Intake of Solid Food: 02/19/25 Time of Last Intake of Solid Foods: 18:00 Procedure Planning Contraindications for Sedation: none Current Medications Reviewed: Yes Notes The planned sedation has been discussed with the patient. Informed Consent was obtained. I have identified the patient, determined the appropriateness of sedation and have assessed the patient immediately prior to the procedure. All medicine(s) and interventions are by my order.
[2025-02-20] MEDS: niCARdipine 2,000 MCG/20 ML SYR ONE (15:06)
[2025-02-20] MEDS: NITROGLYCERIN/D5W 100MCG/ML 20ML SYR ONE (15:06)
[2025-02-20] MEDS: MIDAZOLAM HCL 1 MG/ML 2ML VIAL ONE (15:06)
[2025-02-20] MEDS: OPTIRAY 350 ONE (15:13)
[2025-02-20] MEDS: HEPARIN (PORCINE) 1000 UNIT/ML 10 ML (CATH LAB USE ONLY) ONE ×2 (15:15)
[2025-02-20 15:27] LABS: iSTAT Art Bld Gas Base Excess -1.0 mmol/L (-9-1.8)
[2025-02-20] MEDS: CLOPIDOGREL BISULFATE 300 MG TAB ONE (15:41)
[2025-02-20 16:18] LABS: iSTAT Art Bld Gas Base Excess 2.0 mmol/L (-9-1.8)
--- NOTE | 2025-02-20 17:23 | Post Anesthesia Assessment ---
Date of Service February 20, 2025 Post Sedation Assessment Vital Signs Temp Pulse Pulse Resp BP BP BP 02/20/25 16:03 97.3 F L 95 H 19 121/78 02/20/25 15:30 75 18 128/74 02/20/25 13:00 93 H 18 139/87 02/20/25 11:37 97.9 F 99 H 16 107/67 02/20/25 11:03 02/20/25 08:08 97.7 F 69 18 124/84 02/20/25 06:57 79 02/20/25 03:40 97.7 F 82 18 107/75 02/19/25 23:21 97.9 F 84 18 110/74 02/19/25 21:47 96 H 02/19/25 20:33 97.5 F L 97 H 124/76 02/19/25 20:30 113 H 02/19/25 20:20 02/19/25 19:59 02/19/25 19:30 80 15 02/19/25 19:30 122/77 02/19/25 19:30 122/77 02/19/25 19:09 67 19 02/19/25 19:00 125/79 02/19/25 18:48 88 22 02/19/25 18:36 76 15 02/19/25 18:30 130/81 02/19/25 18:24 68 15 02/19/25 18:03 76 24 02/19/25 18:00 116/89 02/19/25 18:00 116/89 02/19/25 18:00 116/89 02/19/25 17:54 78 17 02/19/25 17:37 69 18 120/65 02/19/25 17:33 83 17 02/19/25 17:30 120/65 02/19/25 17:27 76 17 Pulse Ox O2 Del Method 02/20/25 16:03 97 Room Air 02/20/25 15:30 97 Room Air 02/20/25 13:00 97 Room Air 02/20/25 11:37 95 Room Air 02/20/25 11:03 Room Air 02/20/25 08:08 99 Room Air 02/20/25 06:57 02/20/25 03:40 96 Room Air, CPAP 02/19/25 23:21 98 Room Air, CPAP 02/19/25 21:47 02/19/25 20:33 99 Room Air 02/19/25 20:30 02/19/25 20:20 Room Air, CPAP 02/19/25 19:59 Room Air 02/19/25 19:30 99 02/19/25 19:30 02/19/25 19:30 02/19/25 19:09 98 02/19/25 19:00 02/19/25 18:48 94 02/19/25 18:36 96 02/19/25 18:30 02/19/25 18:24 98 02/19/25 18:03 98 02/19/25 18:00 02/19/25 18:00 02/19/25 18:00 02/19/25 17:54 98 02/19/25 17:37 98 Room Air 02/19/25 17:33 98 02/19/25 17:30 02/19/25 17:27 99 Recovery Score Activity: Moves 4 extremities Respiration: Deep Breath/Cough Circulation: +/-20% PreAnes Value Consciousness: Fully Awake Oxygen Saturation: > 92% On Room Air Post Anesthesia Score: 10 Discharge Sedation Level of Care: Fast Track Phase II
--- NOTE | 2025-02-20 17:26 | Post Operative Brief Note ---
Cardiology Brief Post Op Date of Surgery February 20, 2025 Pre & Post Diagnosis Coronary artery disease Procedure Left heart catheterization Right heart catheterization PCI of mid LAD with single drug-eluting stent Cathode Washer Bala Taveras MD Chef Saucier showers Estimated Blood Loss 25 Findings See Below 50% calcified LAD ostium 90% mid LAD stenosis Ostial to distal RCA stents patent with 50% proximal ISR and 50% latemid ISR. Right heart pressuresnormal left and right sided filling pressures. No pulmonary hypertension. Preserved cardiac output. Successful PCI of mid LAD with single drug-eluting stent. Anesthesia Type RN Sedation Complications none Disposition Accompanied Patient To Recovery: Yes Disposition: Recovery Room
--- NOTE | 2025-02-20 21:47 | Cardiac Catheterization ---
[facility] Data: Team Driver Cardiac Status Clinical evaluation leading to the procedure CAD Presenation: Non STEMI Diagnostic Physicians Name: Bala Taveras MD Closure Device Recommendations: PCI without planned CABG Cardiac Cath Procedure Full Procedure Date February 20, 2025 Pre-Procedure Diagnosis Pre-Procedure Diagnosis: Non STEMI and CAD AUC Score AUC Score: 7 Post-Procedure Diagnosis Post-Procedure Diagnosis: Severe CAD Procedure(s) Performed Procedure(s) Performed: Coronary Angiography, Left Heart Cath, Right Heart Cath, Drug Eluting Stent and IVUS Barber Bala Taveras MD Webbing Weaver(s) Showers Estimated Blood Loss Estimated Blood Loss: 30 Medication(s) Medication(s): Clopidogrel, Fentanyl, Heparin, Lidocaine 1%, Nicardipine, Nitroglycerin and Versed Summary of Findings Indication: NSTEMI. History of complex CAD post atherectomy/IVL and ostial to distal RCA stenting 12/2023 Access: 6 Fr slender right radial artery Catheters: [place], JR4, EBU 3.5 guide Findings: LM -Short, almost separate ostium LAD -medium caliber, heavily calcified, 40% ostial, diffuse proximal up to 50%. 90+% mid stenosis. Remainder of LAD without significant disease and distal vessel wraps around apex. D1 100% chronic proximal occlusion. Medium D2 without significant disease. Circumflex -calcified, large caliber proximal to mid luminal regularities. Small distal AV groove circumflex without disease. Large bifurcating OM2 with 30% proximal disease. RCA -dominant, large caliber, ostial to distal stents patent with 50% proximal ISR and 50%mid ISR. Distal stent and RPDA without significant disease. RA 3 RV 33/3 PA 30/14 (21) PAWP 9 PaSat 65% AoSat 96% Coby CO/CI 7.4/2.7 Thermo CO/CI 6.7/2.5 -- PCI -- Antithrombotic therapy: Heparin, clopidogrel Procedure: Left main/LAD cannulated with EBU 3.5 guide Pre-procedure flow FORREST 3 Security Tester 50 wire passed across lesion into distal vessel Quarles IVUS catheter placed in mid LAD, unable to pass area of severe stenosis in mid LAD. Pullback revealed heavy concentric calcium with moderate proximal/ostial stenosis. Mid LAD lesion predilated with 2.5 compliant balloon Dilated lesion stented with 2.75 x 22 mm [place] drug-eluting stent Stent post-dilated with 3.5 noncompliant balloon IC vasodilators administered for spasm Post procedure FORREST 3 flow, stent well expanded with minimal residual stenosis and no apparent cardiac complications. Arterial Closure: TR band Summary: 1. Multivessel coronary artery disease -40-50% calcified ostial/proximal LAD, 90+% mid LAD stenosis. 100% D1 GIFT SHOP ASSISTANT Patent ostial to distal RCA stents with 50% proximal and 50% latemid RCA in- stent restenosis 2. Normal left and right sided filling pressures. 3. Normal pulmonary artery pressure 4. Normal cardiac output 5. Successful PCI of mid LAD with single drug-eluting stent (2.75 x 22 mm [place]; postdilated with 3.5 NC). Recommendations: To PCU for continued monitoring Reloaded with clopidogrel 300 mg in Team Driver Continue dual therapy with clopidogrel, Eliquis. Continue statin, and ASCVD risk factor modification Medical management of residual in-stent RCA disease. If significant recurrent anginal symptoms in the future invasive assessment of RCA disease with possible PCI could be considered. Hemodynamics Rest Ao:: 99/66/81 Final Ao: 112/65/85 LV: -- Recommendations Recommendations: PCI without planned CABG Radiation Exposure (mGy) 3041 Contrast (mls) 110 Anesthesia Moderate 1172-3744 Procedural Complication(s) None Disposition PCU I attest to the content of the Intraoperative Record and any orders documented therein. Any exceptions are noted below. [facility] Card Cath Procedure Codes Cardiac Catheterization Procedure 1: Cardiovascular Cath Procedures: 62981 Coronaries and RHC Therapeutic Services & Ancillary Procedure 1: Cardiovascular Tx and Anc Procedures: 13960 IV Ultrasound (Coronary or Graft) Moderate Sedation Procedure 1: Sedation/Anesthesia: 90406 Mod Sedation by the same physician;Init15 Min Child Age 5 & Up Procedure 2: Sedation/Anesthesia: 77885 Mod Sedation by the same physician; Ea [id number] Minutes Stenting Procedure 1: Cardiovascular Stent Procedures: 67450 Perc transcatheter placement of intracoronary stent(s), with ang PG Care Time/CCT Total # of Minutes Spent Total Time Spent with Patient: Total time spent is greater than 50% in coordination of care (as documented) at patient's floor/unit and/or counseling patient:
[2025-02-21 07:46] LABS: Hematocrit (blood only) 36.1 % (42.0-52.0); Hemoglobin 12.2 g/dl (14.0-18.0); Immature Granulocytes # (auto) 0.07 K/uL (0.01-0.20); Immature Granulocytes % (auto) 0.7 %; Mean Corpuscular Hemoglobin 30.0 pg (25.0-34.0); Mean Corpuscular Volume 88.9 fL (80.0-100.0); Platelet Count 235 K/uL (130-400); RDW Standard Deviation 46.6 fL (36.4-46.3); Red Blood Count 4.06 M/uL (4.70-6.10); White Blood Count 10.67 K/ul (4.8-10.8)
[2025-02-21 08:08] LABS: Anion Gap 8.0 (3-11); Blood Urea Nitrogen 17.0 mg/dl (6-23); Calcium 8.6 mg/dl (8.6-10.3); Carbon Dioxide 28.0 mmol/L (21-32); Chloride 104.0 mmol/L (98-107); Creatinine Clr Calc Pharmacy 98.8 ml/min; Glucose 158.0 mg/dl (70-99(Fasting)); Potassium 4.0 mmol/L (3.5-5.1); Sodium 140.0 mmol/L (136-145)
[2025-02-21 08:09] VITALS: RESP 19; TEMP 98.1
[2025-02-21] MEDS: ASPIRIN 81 MG ECTAB PO SCH (08:14)
[2025-02-21] MEDS ORDERED: INFLUENZA VACC TS2025-26(65y+)/PF (IIV3) 0.5mL Syr IM ONE (10:55)
[2025-02-21 11:19] VITALS: BP 114/70; PULSE 81; O2SAT 96
--- NOTE | 2025-02-21 11:38 | XCELERA ---
[id number] \\[id number]
--- NOTE | 2025-02-21 12:17 | Discharge Summary ---
Date of Service February 21, 2025 Admission HPI Per Admitting Provider 74 year old male with PMH significant for type 2 diabetes with polyneuropathy, gouty arthropathy, dyslipidemia, allergic rhinitis, ROGER on CPAP, COPD, PAF, venous insufficiency, hypertension, CAD s/p RCA stent, morbid obesity, GERD and BPH who presents to the ED on 02/19/2025 with SOB and indigestion nightly x4 nights. Patient reports that for the last four nights, he has developed severe indigestion where he describes his sternum as raw which causes SOB and diaphoresis. The symptoms start 1-2 hours after he takes his evening medicine. He reports that tums and use of his CPAP relieves the indigestion. He was seen via telemedicine yesterday for these symptoms and prescribed omeprazole and carafate. He took one dose of each medicine last night but still had the indigestion and SOB. He called his [facility], Dr. Carmelita Negron, who he has followed with since his NSTEMI and cardiac cath last year, who advised that he be seen in the ED. Upon evaluation patient denies current symptoms. Denies fevers, chills, cough, chest pain, SOB, abdominal pain, N/V/D, dysuria. Admission Exam Per Admitting Provider General: Not in distress, obese Eyes: PERRL, conjunctivae normal, not pale, anicteric sclerae, EOM intact bilaterally ENMT: External ear and nose normal, oropharynx normal Respiratory: Not in resp distress, on room air, CTA b/l Cardiovascular: Irregularly irregular S1 S2 Gastrointestinal (Abdomen): Abdomen is not distended, soft, non-tender to palpation, normal bowel sounds Musculoskeletal: B/l pitting pedal edema Neurologic: Alert and oriented x 3, No focal weakness Psychiatric: Normal mood and affect Principal Diagnosis NSTEMI status post LUCA of LAD Discharge Exam Constitutional: AO X3, comfortable, not in any distress Respiratory: normal respiratory effort, lungs clear to auscultation, no wheeze, rales, rhonchi. Normal insp/exp effort, no accessory muscle use Cardiovascular: RRR, no murmur, no edema Vessels: no JVD or carotid bruit Chest: normal inspection of chest Abdomen: normal bowel sounds, soft, nontender, no hepatosplenomegaly Musculoskeletal: no cyanosis or clubbing, extremities motor strength 5/5 Skin: no rashes, warm and dry normal turgor Neurologic: PERRL, EOMI, accommodation nl, no face palsy, no dysarthria CN's II- XI intact bilaterally and moves all extremities Psychiatric: A+Ox3, euthymic affect Discharge Data Allergies Allergy/AdvReac Type Severity Reaction Status Date / Time Sulfa (Sulfonamide AdvReac Intermediate Gastrointestinal Verified 01/17/24 01:23 Antibiotics) Upset Consultations 02/19/25 16:17 ED Decision to Admit Stat 02/19/25 17:49 Consult Cardiac Catheterization Routine 02/19/25 20:24 Consult Cardiology Routine Procedures Performed Operation Date: 02/20/25 13:00 Actual Procedures p Cineradiography w/Routine Exam - Bala Taveras MD p Drug Eluting Stent SGl Vessel - Bala Taveras MD s IVUS Coronary Single Vessel - Bala Taveras MD s Cath, Right Heart with Cors - Bala Taveras MD Ordered Studies 02/20/25 06:15 CL Cath Imgs for PACS use only Routine 02/20/25 15:44 CL IVUS Coronary Single Vessel Routine Hospital Course (1) NSTEMI (non-ST elevated myocardial infarction): (2) Elevated troponin: (3) GERD (gastroesophageal reflux disease): (4) Hypomagnesemia: (5) Diabetes mellitus, type 2: (6) Atrial fibrillation: (7) Hypertension: (8) Hyperlipidemia: (9) BPH (benign prostatic hyperplasia): (10) Gout: (11) Sleep apnea: Plan 74 year old male with PMH significant for type 2 diabetes with polyneuropathy, gouty arthropathy, dyslipidemia, allergic rhinitis, ROGER on CPAP, COPD, PAF, venous insufficiency, hypertension, CAD s/p RCA stent (2023), morbid obesity, GERD and BPH who presents to the ED on 02/19/2025 with SOB and indigestion nightly x4 nights. NSTEMI Status post DESof mid LAD Patient presented with chest discomfort for several days at night Troponin 180 repeat 188 and stable EKG shows sinus rhythm without significant ST changes Received 325mg ASA in ED And was admitted to the medical floor for further management Patient underwent cardiac cath on 02/20; found to have multivessel coronary artery disease. Underwent LUCA of mid LAD. Patient was observed overnight; did not have any recurrence of chest pain/discomfort. Patient was discharged home with instructions to follow-up with PCP/cardiology. GERD-Continue PPI and carafate recently prescribed. PRN maalox Hypomagnesemia- repleted Type 2 diabetes- home meds resumed at discharge. Atrial fibrillation Continue metoprolol on eliquis Hypertension Continue fosinopril and bumetanide BPH Continue finasteride and tamsulosin Gout Continue allopurinol Osteoarthritis Continue tramadol ROGER Continue home CPAP Please note the above document was generated using voice recognition software. It may contain grammatical, syntax or spelling errors. Any formal questions or concerns about the content, text or information contained within the body of this dictation should be directly addressed to the provider for clarification Total Time Total Time Spent Total Time Spent (In Minutes): 56 Total Time Includes: Examination of the Patient, Discharge Planning, Medication Reconciliation, Communication With Other Providers and Other Discharge Plan Discharge Items Patient Disposition: Home - Self-Care Reason For Visit: CHEST PAIN Discharge Diagnosis: NSTEMI s/p Successful PCI of mid LAD with single drug-eluting stent Condition on Discharge: Good Activity: Resume your previous activity Non-emergency contact: Primary Care Provider Call non-emergency contact if: you have any medication questions and your symptoms worsen Follow-up/Referrals: Dario Galloway MD [Primary Care Provider] - (Date & Time 02/27/2025 11:20 AM Provider: Dario Galloway MD [facility] ) Diet: Regular Addtl Attending Provider Instructions: You were admitted for the hospital for chest pain. You underwent cardiac cath and had stent place in one of your heart vessels. Please continue to take your meds as before. Pending Studies at Discharge: No Stand-Alone Forms: My Chip[employer], Smoking Cessation Medications and DC Order Prescriptions: Continued allopurinol 300 mg Tablet 300 mg PO HS albuterol sulfate [Ventolin HFA] 90 mcg/actuation Hfa Aerosol Inhaler 2 puff INHALATION QID PRN (Reason: Shortness Of Breath) atorvastatin 40 mg Tablet 40 mg PO HS insulin glargine [Lantus U-100 Insulin] 100 unit/mL Solution 100 unit SUBCUT QAM tramadol 50 mg Tablet 50 mg PO BID PRN (Reason: Pain) Rx Instructions: take with 500 or 1000 mg of acetaminophen tamsulosin [Flomax] 0.4 mg Capsule 0.4 mg PO QAM fosinopril 40 mg Tablet 40 mg PO QAM nitroglycerin [Nitrostat] 0.4 mg Tablet, Sublingual 0.4 mg Sublingual DIRECTED MDD 3 PRN (Reason: Chest Pain) sucralfate 1 gram tablet 1 g PO QID Rx Instructions: before meals and at bedtime omeprazole 20 mg capsule,delayed release(DR/EC) 20 mg PO HS metoprolol succinate 100 mg tablet extended release 24 hr 100 mg PO HS metformin 500 mg tablet extended release 24 hr 500 mg PO BID Ozempic 2 mg/dose (8 mg/3 mL) pen injector 2 mg SUBCUT WK Rx Instructions: Sunday finasteride 5 mg tablet 5 mg PO HS cyanocobalamin (vitamin B-12) [Vitamin B-12] 1,000 mcg Tablet 1,000 mcg PO 3XWK Rx Instructions: SUN/SUN/SUN bumetanide 2 mg tablet 1.5 mg PO QAM clopidogrel 75 mg tablet 75 mg PO HS Eliquis 5 mg tablet 5 mg PO BID Admission Data Admit Date/Time: 02/19/25 17:23 Attending Provider: Ap Harmon Admit Provider: Nadia Cobian I. Primary Care Provider: Dario Galloway Other Providers: Nadia Cobian I.; Bala Taveras; Carmelita Negron
[2025-02-21] MEDS: APIXABAN 5 MG TABLET PO SCH (13:00)
--- NOTE | 2025-02-21 13:17 | Cardiology Progress Note ---
Date of Service February 21, 2025 Assessment & Plan (1) NSTEMI (non-ST elevated myocardial infarction): (2) CAD (coronary artery disease): (3) S/P coronary artery stent placement: (4) Aortic stenosis: (5) Dyslipidemia, goal LDL below 70: (6) Chronic atrial fibrillation: Plan ASSESSMENT/PLAN: 1. NSTEMI: No further angina. Underwent PCI of LAD on 02/20/2025. Plavix 75 mg daily on discharge while also on Eliquis. Recommend cardiac rehab. Close follow-up with his primary hardware engineer, Dr. Negron. 2. CAD s/p prior RCA PCI and NEW LAD PCI (02/20/25): Antiplatelet therapy as outlined by interventional cardiology with Plavix 75 mg daily while also on Eliquis. Continue high intensity statin therapy and beta-munir. Consider cardiac rehab. 3. Aortic stenosis: Nonsevere. Continue to follow in the outpatient setting with primary hardware engineer. 4. Chronic heart failure with mildly reduced EF: Continue outpatient regimen as outlined by primary hardware engineer. Continue diuretic. Consider SGLT2 inhibitor. Low-sodium diet. Left-sided filling pressure normal on 02/20/2025 cath. Residual edema may be due to venous insufficiency. 5. Atrial fibrillation: Permanent. Rate controlled. On anticoagulation for stroke risk reduction. Monitor blood counts. 6. Disposition: Can be discharged home from a cardiology standpoint. Follow-up in approximately 1 week with primary hardware engineer, Dr. Negron. Plan of care communicated with primary hospitalist, Dr. Harmon. Admission and Anticipated Discharge Date Admission Date: February 19, 2025 Subjective Patient seen this morning with his at the bedside. He feels much better following PCI. He denies shortness of breath, chest pain, syncope, near syncope, palpitations, or bleeding. He has chronic lower extremity edema. Physical Exam Physical Exam: Gen.: No acute distress. Alert and oriented. HEENT: Anicteric sclera. Neck: No JVD. Cardiac: Irregularly irregular with normal rate. Normal S1-S2. 2/6 mid peaking systolic ejection murmur heard best at right upper sternal border. No rubs or gallops. Pulmonary: Clear to auscultation bilaterally without wheezes, rales, or rhonchi. Abdomen: Soft, nontender, nondistended, with normoactive bowel sounds. No bruits noted. Extremities: 2+ radial pulses bilaterally. Right radial cath site was clean, dry, and intact without erythema, discharge, or hematoma. 2+ posterior tibialis pulses bilaterally. 1+ bilateral lower extremity edema. No cyanosis. Psychiatric: Affect appears appropriate. Results & Data Vital Signs (Past 12 Hours) Vital Signs Temp Pulse Resp BP BP Pulse Ox O2 Del Method 02/21/25 11:18 36.7 C 81 19 114/70 96 Room Air 02/21/25 08:08 36.7 C 100 H 19 109/68 99 Room Air 02/21/25 08:00 Room Air, CPAP 02/21/25 03:29 36.6 C 83 20 97/60 L 97 CPAP Laboratory Results Laboratory Results - last 24 hr 02/20/25 02/20/25 02/20/25 14:29 14:30 15:07 WBC RBC Hgb POC Hgb 12.9 L 12.2 L Hct POC Hct 38 L 36 L MCV MCH MCHC RDW Std Deviation RDW Coeff of Nima Plt Count MPV Immature Gran % (Auto) Neut % (Auto) Lymph % (Auto) [place] % (Auto) Eos % (Auto) Baso % (Auto) Neut # (Auto) Lymph # (Auto) [place] # (Auto) Eos # (Auto) Baso # (Auto) Immature Gran # (Auto) Activ Coag Time Kaolin 233 H POC pH 7.42 7.43 POC pCO2 41 35 POC pO2 33 L 78 L POC HCO3 26 H 23 POC Total CO2 27 24 POC Base Excess 2.0 H -1.0 POC ABG O2 Sat 65.0 L 96.0 H POC Sodium 138 140 Sodium POC Potassium 4.1 3.8 Potassium Chloride Carbon Dioxide Anion Gap BUN Creatinine Est Cr Clr Drug Dosing eGFR BUN/Creatinine Ratio Glucose POC Glucose Calcium 02/20/25 02/20/25 02/21/25 16:18 20:07 07:20 WBC 10.67 RBC 4.06 L Hgb 12.2 L POC Hgb Hct 36.1 L POC Hct MCV 88.9 MCH 30.0 MCHC 33.8 RDW Std Deviation 46.6 H RDW Coeff of Nima 14.6 H Plt Count 235 MPV 10.4 Immature Gran % (Auto) 0.7 Neut % (Auto) 66.9 Lymph % (Auto) 21.0 [place] % (Auto) 7.5 Eos % (Auto) 3.1 Baso % (Auto) 0.8 Neut # (Auto) 7.14 H Lymph # (Auto) 2.24 [place] # (Auto) 0.80 H Eos # (Auto) 0.33 Baso # (Auto) 0.09 Immature Gran # (Auto) 0.07 Activ Coag Time Kaolin POC pH POC pCO2 POC pO2 POC HCO3 POC Total CO2 POC Base Excess POC ABG O2 Sat POC Sodium Sodium 140 POC Potassium Potassium 4.0 Chloride 104 Carbon Dioxide 28 Anion Gap 8 BUN 17 Creatinine 0.99 Est Cr Clr Drug Dosing 98.8 eGFR 78.95 BUN/Creatinine Ratio 17.2 Glucose 158 H POC Glucose 154 H 243 H Calcium 8.6 02/21/25 02/21/25 07:21 11:16 WBC RBC Hgb POC Hgb Hct POC Hct MCV MCH MCHC RDW Std Deviation RDW Coeff of Nima Plt Count MPV Immature Gran % (Auto) Neut % (Auto) Lymph % (Auto) [place] % (Auto) Eos % (Auto) Baso % (Auto) Neut # (Auto) Lymph # (Auto) [place] # (Auto) Eos # (Auto) Baso # (Auto) Immature Gran # (Auto) Activ Coag Time Kaolin POC pH POC pCO2 POC pO2 POC HCO3 POC Total CO2 POC Base Excess POC ABG O2 Sat POC Sodium Sodium POC Potassium Potassium Chloride Carbon Dioxide Anion Gap BUN Creatinine Est Cr Clr Drug Dosing eGFR BUN/Creatinine Ratio Glucose POC Glucose 138 H 174 H Calcium Diagnostic Findings Telemetry personally reviewed: Rate controlled atrial fibrillation. Labs reviewed and notable for stable renal function, normal potassium, mild but stable anemia. Echo 02/21/2025: LV EF 45-50%. Mild global hypokinesis. Moderate aortic stenosis with mild AI. Mild MR. RVSP 49. Cardiac cath 02/20/2025: Findings: LM -Short, almost separate ostium LAD -medium caliber, heavily calcified, 40% ostial, diffuse proximal up to 50%. 90+% mid stenosis. Remainder of LAD without significant disease and distal vessel wraps around apex. D1 100% chronic proximal occlusion. Medium D2 without significant disease. Circumflex -calcified, large caliber proximal to mid luminal regularities. Small distal AV groove circumflex without disease. Large bifurcating OM2 with 30% proximal disease. RCA -dominant, large caliber, ostial to distal stents patent with 50% proximal ISR and 50%mid ISR. Distal stent and RPDA without significant disease. RA 3 RV 33/3 PA 30/14 (21) PAWP 9 PaSat 65% AoSat 96% Coby CO/CI 7.4/2.7 Thermo CO/CI 6.7/2.5 Successful PCI of mid LAD with single drug-eluting stent (2.75 x 22 mm [place]; postdilated with 3.5 NC). Medications Administered Current Inpatient Medications Acetaminophen (Acetaminophen 325 Mg Tab) 650 mg PO Q4H PRN PRN Reason: pain/fever Stop: 03/21/25 20:23 Al Hydrox/Mg Hydrox/Simethicone (Aluminum/Magnesium Susp 30 Ml Udc) 30 ml PO Q6H PRN PRN Reason: Dyspepsia Stop: 03/21/25 20:23 Allopurinol (Allopurinol 300 Mg Tab) 300 mg PO HS [facility] Stop: 03/21/25 20:59 Last Admin: 02/20/25 21:37 Dose: 300 mg Apixaban (Apixaban 5 Mg Tablet) 5 mg PO BID KEITH Stop: 03/23/25 12:29 Last Admin: 02/21/25 13:00 Dose: 5 mg Aspirin (Aspirin 81 Mg Ectab) [facility] Stop: 03/23/25 08:59 Last Admin: 02/21/25 08:14 Dose: 81 mg Atorvastatin Calcium (Atorvastatin 40 Mg Tab) 40 mg PO KEITH Stop: 03/21/25 20:59 Last Admin: 02/20/25 21:37 Dose: 40 mg Bumetanide (Bumetanide 1 Mg Tab) [facility] [place] Stop: 03/22/25 08:59 Last Admin: 02/21/25 08:14 Dose: Not Given Clopidogrel Bisulfate (Clopidogrel Bisulfate 75 Mg Tab) 75 mg PO HS KEITH Stop: 03/21/25 20:59 Last Admin: 02/20/25 21:37 Dose: 75 mg Dextrose (Dextrose 50% 50 Ml Syringe) 25 - 50 ml IV UD PRN; Protocol PRN Reason: Hypoglycemia Protocol Stop: 03/21/25 20:23 Finasteride (Finasteride 5 Mg Tab) 5 mg PO HS KEITH Stop: 03/21/25 20:59 Last Admin: 02/20/25 21:37 Dose: 5 mg Glucagon (Glucagon For Inj 1 Mg Vial) 1 mg SQ UD PRN; Protocol PRN Reason: Hypoglycemia Protocol Stop: 03/21/25 20:23 Glucose (Glucose 40% Gel 15 Gm Tube) 15 - 30 gm PO UD PRN; Protocol PRN Reason: Hypoglycemia Protocol Stop: 03/21/25 20:23 Glucose (Glucose 10 Tab/Tube) 4 - 8 tab PO UD PRN; Protocol PRN Reason: Hypoglycemia Protocol Stop: 03/21/25 20:23 Insulin Aspart (Insulin Aspart Per Unit Charge) 0 units SC ACHS KEITH Stop: 03/22/25 20:59 Last Admin: 02/21/25 11:46 Dose: 6 units Lisinopril (Lisinopril 40 Mg Tab) 40 mg PO QAM KEITH Stop: 03/22/25 08:59 Last Admin: 02/21/25 08:14 Dose: 40 mg Metoprolol Succinate (Metoprolol Succ 50mg Ext Rel Tab) 100 mg PO HS KEITH Stop: 03/21/25 20:59 Last Admin: 02/20/25 21:38 Dose: 100 mg Miscellaneous (Carbohydrates For Hypoglycemia ) 15 - 30 gm PO UD PRN PRN Reason: Hypoglycemia Protocol Stop: 03/21/25 20:23 Ondansetron HCl (Ondansetron Inj 2 Mg/Ml 2 Ml Vial) 4 mg IV Q6H PRN PRN Reason: Nausea Stop: 03/21/25 20:23 Pantoprazole Sodium (Pantoprazole 40 Mg Tab) 40 mg PO HS [facility] Stop: 03/21/25 20:59 Last Admin: 02/20/25 21:38 Dose: 40 mg Polyethylene Glycol (Polyethylene (Miralax) 17 Gm Pack) 17 gm PO DAILY PRN PRN Reason: Constipation Stop: 03/21/25 20:23 Sucralfate (Sucralfate 1 Gm Tab) 1 gm PO QID KEITH Stop: 03/21/25 20:59 Last Admin: 02/21/25 13:00 Dose: 1 gm Tamsulosin HCl (Tamsulosin Hcl 0.4 Mg Cap) 0.4 mg PO QAM [facility] Stop: 03/22/25 08:59 Last Admin: 02/21/25 08:15 Dose: 0.4 mg Tramadol HCl (Tramadol Hcl 50 Mg Tablet) 50 mg PO BID PRN PRN Reason: Pain Stop: 03/21/25 20:23 PG Care Time/CCT Total # of Minutes Spent Total Time Spent with Patient: Total time spent is greater than 50% in coordination of care (as documented) at patient's floor/unit and/or counseling patient: Coding Level of Care Code 52710 SUB INP/OBS CARE 3/50MIN Diagnoses NSTEMI (non-ST elevated myocardial infarction) I21.4 CAD (coronary artery disease) I25.10 S/P coronary artery stent placement Z95.5 Nonrheumatic aortic valve stenosis I35.0 Cardiac valve disease etiology: nonrheumatic Dyslipidemia, goal LDL below 70 E78.5 Chronic atrial fibrillation I48.20 (4) Aortic stenosis Cardiac valve disease etiology: nonrheumatic Qualified Code(s): I35.0 - Nonrheumatic aortic (valve) stenosis
--- NOTE | 2025-02-22 21:21 | Electrocardiogram Report ---
Test Reason : Blood Pressure : */* mmHG Vent. Rate : 86 BPM Atrial Rate : 82 BPM P-R Int : * ms QRS Dur : 88 ms QT Int : 388 ms P-R-T Axes : * -33 39 degrees QTcB Int : 464 ms Atrial fibrillation Left axis deviation Possible Anterior infarct (cited on or before 13-Nov-2024) Nonspecific T wave abnormality Abnormal ECG When compared with ECG of 13-Nov-2024 09:05, Nonspecific T wave abnormality has replaced inverted T waves in Lateral leads Confirmed by Mike Singer ([id number]) on 02/22/2025 9:21:19 PM Referred By: Confirmed By: Mike Singer
--- NOTE | 2025-02-22 21:23 | Electrocardiogram Report ---
Test Reason : Blood Pressure : */* mmHG Vent. Rate : 92 BPM Atrial Rate : * BPM P-R Int : * ms QRS Dur : 94 ms QT Int : 396 ms P-R-T Axes : * -50 95 degrees QTcB Int : 489 ms Atrial fibrillation Left anterior fascicular block Cannot rule out Inferior infarct , age undetermined Possible Anterior infarct (cited on or before 13-Nov-2024) Prolonged QT Abnormal ECG When compared with ECG of 19-Feb-2025 12:53, Inverted T waves have replaced nonspecific T wave abnormality in Lateral leads Confirmed by Mike Singer [id number] on 02/22/2025 9:23:15 PM Referred By: REFERRED SELF Confirmed By: Mike Singer
== END 2025-02-21 14:17 | disposition home or self-care (01) | DRG 322 ==
LOC: ED 12:33 → SUATTDRO 17:23 → EDINP 17:23 → 2N 20:09 → 2S 02-20 14:04